=== PATIENT | female | born 1960 | race Caucasian/White ===

== ENCOUNTER 2023-08-22 10:24 | Inpatient (IN) ==
[2023-08-22] MEDS: SODIUM CHLORIDE 0.9% 1,000 ML IV ONE (11:15)
[2023-08-22 11:21] LABS: Basophils # (auto) 0.04 K/uL (0.00-0.20); Basophils % (auto) 0.3 %; Eosinophils # (auto) 0.03 K/uL (0.00-0.50); Eosinophils % (auto) 0.2 %; Hematocrit (blood only) 44.7 % (37.0-47.0); Hemoglobin 14.4 g/dl (12.0-16.0); Immature Granulocytes # (auto) 0.08 K/uL (0.01-0.20); Immature Granulocytes % (auto) 0.5 %; Lymphocytes # (auto) 2.85 K/uL (1.20-3.40); Lymphocytes % (auto) 18.5 %; Mean Corpuscular Hemoglobin 27.9 pg (25.0-34.0); Mean Corpuscular Hgb Conc 32.2 g/dL (32.0-36.0); Mean Corpuscular Volume 86.6 fL (80.0-100.0); Mean Platelet Volume 10.2 fL (9.4-12.4); Monocytes # (auto) 1.01 K/uL (0.11-0.59); Monocytes % (auto) 6.5 %; Neutrophils # (auto) 11.43 K/uL (1.40-6.50); Platelet Count 338 K/uL (130-400); RDW Coefficient of Variation 13.2 % (11.5-14.5); RDW Standard Deviation 41.8 fL (36.4-46.3); Red Blood Count 5.16 M/uL (4.20-5.40); White Blood Count 15.44 K/ul (4.8-10.8)
[2023-08-22 11:43] LABS: Albumin Globulin Ratio 1.6 (0.9-2); Albumin Level 4.6 gm/dl (3.4-5.0); BUN Creatinine Ratio 21.2 (10-20); Bilirubin,Total 0.3 mg/dl (0.2-1.0); Calcium 9.9 mg/dl (8.6-10.3); Creatinine Clr Calc Pharmacy 70.8 ml/min; Est GFR (African American) 85.7 ml/min; Globulin 2.9 gm/dl (2.5-4.0); Potassium 4.6 mmol/L (3.5-5.1); Total Protein 7.5 gm/dl (6.0-8.3)
--- NOTE | 2023-08-22 11:45 | Emergency Department Note ---
Impression & Plan Atrial fibrillation with rapid ventricular response, Atrial fibrillation, new onset, Dizziness ED Provider Note NAME: RENETTA BALDWIN AGE: 63 SEX: F ARRIVES VIA: Walk-In INFORMANT: Patient ED PROVIDER(S): Avila Tan MD CHIEF COMPLAINT: dizziness PLAN: Disposition: Admit MEDICAL DECISION MAKING: The patient is a 63-year-old woman, everyday smoker, diabetes who presents to the emergency department via walk-in accompanied her for evaluation of symptoms of denies weakness, lightheadedness intermittent sense of fast heart rate since yesterday in the setting of having nausea vomiting yesterday which she attributes to her Ozempic and occurs somewhat frequently. She denies room- spinning/vertigo. She denies any chest pain, headache, change in vision or hearing. The patient arrives to the emergency department with new onset atrial fibrillation in the 160s. She reports she has felt intermittent fast heart and palpitations for years going back to when she was a child. She does admit that she does not notice a fast heart rate as we are discussing her symptoms and her heart rate is in the 160s. On my evaluation the patient is in no distress, afebrile with heart in the 140s- 160s atrial fibrillation with vital signs otherwise stable. She appears clinically dry. EKG demonstrates atrial fibrillation with RVR without overt ST elevation or depression. WBC 15.4 K, nonspecific. H/H and platelets within normal limits. Chemistry without metabolic acidosis. BUN/creatinine, consistent with patient's clinically dry appearance. LFTs unremarkable. TSH within normal limits. COVID-19, influenza and RSV PCR's were negative. Patient was treated with IV fluid hydration with some improvement in rate to the 140s-150s after 1 L of normal saline. She was also given 5 mg of IV Lopressor x 3 with rate improving to the 100s-130s. Given persistent patient's atrial fibrillation with RVR which is new in onset patient agrees with plan for admission for further management. CHADS Vasc = 2. Case was discussed with Saloni Robertson PAC with Dr. Gallego, [facility] hospitalist, who will evaluate the patient for admission. Further management including additional rate control and decision for anticoagulation per admitting team. Triage Nursing notes reviewed and agree them. Prior/external medical records reviewed Vital Signs: reviewed Differential diagnosis: Benign positional vertigo, dehydration, hypovolemia, anemia, tumor, infection, hypoglycemia, electrolyte abnormalities, cardiac sources, intracerebral event, toxicologic, neurologic, as well as other pathologies. ER treatment provided: See below. Diagnostics interpreted by me: ECG: Atrial fibrillation with RVR, 162 bpm, left anterior fascicular block, no overt ST elevation or depression, QTc 456, QRS 80. Cardiac Monitoring: An order for continuous cardiac monitoring was placed and demonstrated atrial fibrillation with RVR, 162 bpm. Laboratory studies: See below Imaging studies: See below Consultation(s): Saloni Felix [facility] PAC with Dr. Gallego, [facility] hospitalist HPI: The patient is a 63-year-old woman, everyday smoker, diabetes who presents to the emergency department via walk-in accompanied her for evaluation of symptoms of denies weakness, lightheadedness intermittent sense of fast heart rate since yesterday in the setting of having nausea vomiting yesterday which she attributes to her Ozempic and occurs somewhat frequently. She denies room- spinning/vertigo. She denies any chest pain, headache, change in vision or hearing. The patient arrives to the emergency department with new onset atrial fibrillation in the 160s. She reports she has felt intermittent fast heart and palpitations for years going back to when she was a child. She does admit that she does not notice a fast heart rate as we are discussing her symptoms and her heart rate is in the 160s. ROS: See above HPI for pertinent positives & negatives. A total of 10 systems reviewed and were otherwise negative. VITALS:See Below PHYSICAL EXAMINATION: GENERAL: Awake, alert, well-appearing, in no distress HENT: Normocephalic, atraumatic. Oropharynx with dry mucous membranes and otherwise unremarkable. EYES: Normal conjunctiva. Sclera non-icteric. NECK: Supple. No nuchal rigidity. FROM. No JVD. RESPIRATORY: Clear to auscultation. CARDIAC: Tachycardic rate, irregular rhythm. Extremities warm and well perfused. Pulses equal. ABDOMEN: Soft, non-distended. No tenderness to palpation. No rebound or guarding. No masses. RECTAL: Deferred. MUSCULOSKELETAL: Chest examination reveals no tenderness. The back is symmetrical on inspection without obvious abnormality. There is no CVA tenderness to palpation. No joint edema. LOWER EXTREMITIES: Calves are equal size bilaterally and non-tender. No edema. No discoloration. NEURO: Normal sensorium. No sensory or motor deficits noted. SKIN: No rash or jaundice noted. ED COURSE: Critical Care: I have personally spent greater than 45 minutes of critical care time in the direct management of this patient. This includes bedside care, interpretation of diagnostic studies, and testing, discussion with consultants, patient, and family members, and other required patient management activities. This 45 minutes is in excess of all separately billable procedures. Avila Tan MD Past Med/Surg History Medical History Female stress incontinence Tobacco use Centrilobular emphysema T2DM (type 2 diabetes mellitus) HTN (hypertension) Surgical History Hx of cystoscopy Hx of bilateral cataract extraction Hx of tubal ligation Hx of hysterectomy Family History Mother Diabetes Social History Smoking Status: Current every day smoker Tobacco Type: Cigarettes Second Hand Exposure: No; Do You Dip or Chew Tobacco: No; Tobacco Cessation Education Requested by Patient: No Hx Alcohol Use: No Hx Substance Use: No Preferred Language: Moroccan Communication Ability: Effective Event Security Officer Required: No Beliefs That Will Affect Care: None Current Living Situation: Spouse Other Information That Helps Us Care for You: No Feels Safe at Home: Yes Assistive Devices: None Allergies Allergies Allergy/AdvReac Type Severity Reaction Status Date / Time No Known Allergies Allergy Unknown Verified 07/13/07 23:14 Home Meds Home Medications Medication Instructions Recorded Confirmed atorvastatin 20 mg tablet 20 mg PO DAILY 08/22/23 08/22/23 losartan 50 mg tablet 50 mg PO DAILY 08/22/23 08/22/23 metformin 500 mg tablet,extended 2,000 mg PO QPM 08/22/23 08/22/23 release 24 hr pantoprazole 40 mg tablet,delayed 40 mg PO DAILY 08/22/23 08/22/23 release semaglutide 1 mg/dose (4 mg/3 mL) 1 mg subcut MO 08/22/23 08/22/23 subcutaneous pen injector (Ozempic) tolterodine 4 mg capsule,extended 4 mg PO DAILY 08/22/23 08/22/23 release 24 hr zinc acetate 50 mg (zinc) capsule 50 mg PO DAILY 08/22/23 08/22/23 Results & Data (ED) Vital Signs Vital Signs - 24 hr 08/22/23 10:33 08/22/23 11:16 08/22/23 11:18 Temperature 36.8 C Temperature Source Temporal Artery Scan Pulse Rate 111 H 146 H Pulse Rate [Apical] 163 H Pulse Rate from SpO2 Sensor 127 H Respiratory Rate 18 17 20 Respiratory Depth Normal Blood Pressure 99/68 L Blood Pressure [Left Arm] 113/88 Blood Pressure Mean 78 Blood Pressure Mean [Left Arm] 96 Blood Pressure Position Sitting Pulse Oximetry 97 98 98 Oxygen Delivery Method Room Air Room Air Sepsis Recent Fever Within 48 Hours No Sepsis New/Unexplained Change in Mental Status No Sepsis Action Taken by Nursing No Action Required 08/22/23 11:20 08/22/23 11:20 08/22/23 11:30 Temperature Temperature Source Pulse Rate 159 H 163 H Pulse Rate [Apical] Pulse Rate from SpO2 Sensor 154 H Respiratory Rate 18 Respiratory Depth Blood Pressure 108/82 Blood Pressure [Left Arm] Blood Pressure Mean 89 Blood Pressure Mean [Left Arm] Blood Pressure Position Pulse Oximetry 97 Oxygen Delivery Method Sepsis Recent Fever Within 48 Hours Sepsis New/Unexplained Change in Mental Status Sepsis Action Taken by Nursing 08/22/23 11:45 08/22/23 11:45 08/22/23 11:50 Temperature Temperature Source Pulse Rate 156 H Pulse Rate [Apical] Pulse Rate from SpO2 Sensor 154 H Respiratory Rate 19 Respiratory Depth Blood Pressure 129/81 128/70 Blood Pressure [Left Arm] Blood Pressure Mean 96 88 Blood Pressure Mean [Left Arm] Blood Pressure Position Pulse Oximetry 98 Oxygen Delivery Method Sepsis Recent Fever Within 48 Hours Sepsis New/Unexplained Change in Mental Status Sepsis Action Taken by Nursing 08/22/23 11:50 08/22/23 11:55 08/22/23 11:55 Temperature Temperature Source Pulse Rate 143 H 134 H Pulse Rate [Apical] Pulse Rate from SpO2 Sensor 134 H 142 H Respiratory Rate 17 21 Respiratory Depth Blood Pressure 128/102 H Blood Pressure [Left Arm] Blood Pressure Mean 116 Blood Pressure Mean [Left Arm] Blood Pressure Position Pulse Oximetry 98 98 Oxygen Delivery Method Sepsis Recent Fever Within 48 Hours Sepsis New/Unexplained Change in Mental Status Sepsis Action Taken by Nursing 08/22/23 12:00 08/22/23 12:00 08/22/23 12:05 Temperature Temperature Source Pulse Rate 145 H 159 H Pulse Rate [Apical] Pulse Rate from SpO2 Sensor 147 H 143 H Respiratory Rate 19 15 Respiratory Depth Blood Pressure 119/88 Blood Pressure [Left Arm] Blood Pressure Mean 98 Blood Pressure Mean [Left Arm] Blood Pressure Position Pulse Oximetry 98 99 Oxygen Delivery Method Sepsis Recent Fever Within 48 Hours Sepsis New/Unexplained Change in Mental Status Sepsis Action Taken by Nursing 08/22/23 12:05 08/22/23 12:10 08/22/23 12:12 Temperature Temperature Source Pulse Rate 152 H 155 H Pulse Rate [Apical] Pulse Rate from SpO2 Sensor 141 H 131 H Respiratory Rate 19 22 Respiratory Depth Blood Pressure 90/67 L Blood Pressure [Left Arm] Blood Pressure Mean 78 Blood Pressure Mean [Left Arm] Blood Pressure Position Pulse Oximetry 98 99 Oxygen Delivery Method Sepsis Recent Fever Within 48 Hours Sepsis New/Unexplained Change in Mental Status Sepsis Action Taken by Nursing 08/22/23 12:12 08/22/23 12:20 08/22/23 12:20 Temperature Temperature Source Pulse Rate 157 H Pulse Rate [Apical] Pulse Rate from SpO2 Sensor Respiratory Rate Respiratory Depth Blood Pressure 131/82 121/93 121/93 Blood Pressure [Left Arm] Blood Pressure Mean 92 101 Blood Pressure Mean [Left Arm] Blood Pressure Position Pulse Oximetry Oxygen Delivery Method Sepsis Recent Fever Within 48 Hours Sepsis New/Unexplained Change in Mental Status Sepsis Action Taken by Nursing 08/22/23 12:20 08/22/23 12:25 08/22/23 12:25 Temperature Temperature Source Pulse Rate 163 H 141 H Pulse Rate [Apical] Pulse Rate from SpO2 Sensor Respiratory Rate 31 H 18 Respiratory Depth Blood Pressure 98/74 L Blood Pressure [Left Arm] Blood Pressure Mean 89 Blood Pressure Mean [Left Arm] Blood Pressure Position Pulse Oximetry Oxygen Delivery Method Sepsis Recent Fever Within 48 Hours Sepsis New/Unexplained Change in Mental Status Sepsis Action Taken by Nursing 08/22/23 12:30 08/22/23 12:31 08/22/23 12:31 Temperature Temperature Source Pulse Rate 138 H 127 H Pulse Rate [Apical] Pulse Rate from SpO2 Sensor 116 H 109 H Respiratory Rate 18 16 Respiratory Depth Blood Pressure 99/70 L Blood Pressure [Left Arm] Blood Pressure Mean 81 Blood Pressure Mean [Left Arm] Blood Pressure Position Pulse Oximetry 84 L 91 Oxygen Delivery Method Sepsis Recent Fever Within 48 Hours Sepsis New/Unexplained Change in Mental Status Sepsis Action Taken by Nursing 08/22/23 12:37 08/22/23 12:37 08/22/23 12:40 Temperature Temperature Source Pulse Rate 130 H 147 H Pulse Rate [Apical] Pulse Rate from SpO2 Sensor 118 H 121 H Respiratory Rate 17 15 Respiratory Depth Blood Pressure 100/65 Blood Pressure [Left Arm] Blood Pressure Mean 71 Blood Pressure Mean [Left Arm] Blood Pressure Position Pulse Oximetry 98 98 Oxygen Delivery Method Sepsis Recent Fever Within 48 Hours Sepsis New/Unexplained Change in Mental Status Sepsis Action Taken by Nursing 08/22/23 12:41 08/22/23 12:41 08/22/23 12:42 Temperature Temperature Source Pulse Rate 131 H 145 H Pulse Rate [Apical] Pulse Rate from SpO2 Sensor 126 H 120 H Respiratory Rate 18 19 Respiratory Depth Blood Pressure 76/41 L Blood Pressure [Left Arm] Blood Pressure Mean 44 Blood Pressure Mean [Left Arm] Blood Pressure Position Pulse Oximetry 97 98 Oxygen Delivery Method Sepsis Recent Fever Within 48 Hours Sepsis New/Unexplained Change in Mental Status Sepsis Action Taken by Nursing 08/22/23 12:42 08/22/23 12:46 08/22/23 12:46 Temperature Temperature Source Pulse Rate 145 H Pulse Rate [Apical] Pulse Rate from SpO2 Sensor Respiratory Rate Respiratory Depth Blood Pressure 102/72 110/71 110/71 Blood Pressure [Left Arm] Blood Pressure Mean 75 81 Blood Pressure Mean [Left Arm] Blood Pressure Position Pulse Oximetry Oxygen Delivery Method Sepsis Recent Fever Within 48 Hours Sepsis New/Unexplained Change in Mental Status Sepsis Action Taken by Nursing 08/22/23 12:46 08/22/23 12:50 08/22/23 12:51 Temperature Temperature Source Pulse Rate 127 H 138 H Pulse Rate [Apical] Pulse Rate from SpO2 Sensor 129 H 108 H Respiratory Rate 19 20 Respiratory Depth Blood Pressure 98/67 L Blood Pressure [Left Arm] Blood Pressure Mean 76 Blood Pressure Mean [Left Arm] Blood Pressure Position Pulse Oximetry 97 97 Oxygen Delivery Method Sepsis Recent Fever Within 48 Hours Sepsis New/Unexplained Change in Mental Status Sepsis Action Taken by Nursing 08/22/23 12:51 08/22/23 13:00 08/22/23 13:00 Temperature Temperature Source Pulse Rate 131 H 120 H Pulse Rate [Apical] Pulse Rate from SpO2 Sensor 125 H 90 Respiratory Rate 17 14 Respiratory Depth Blood Pressure 103/74 Blood Pressure [Left Arm] Blood Pressure Mean 76 Blood Pressure Mean [Left Arm] Blood Pressure Position Pulse Oximetry 96 97 Oxygen Delivery Method Sepsis Recent Fever Within 48 Hours Sepsis New/Unexplained Change in Mental Status Sepsis Action Taken by Nursing 08/22/23 13:10 08/22/23 13:11 08/22/23 13:11 Temperature Temperature Source Pulse Rate 139 H 126 H Pulse Rate [Apical] Pulse Rate from SpO2 Sensor 117 H 128 H Respiratory Rate 17 15 Respiratory Depth Blood Pressure 106/72 Blood Pressure [Left Arm] Blood Pressure Mean 91 Blood Pressure Mean [Left Arm] Blood Pressure Position Pulse Oximetry 96 96 Oxygen Delivery Method Sepsis Recent Fever Within 48 Hours Sepsis New/Unexplained Change in Mental Status Sepsis Action Taken by Nursing 08/22/23 13:20 08/22/23 13:21 08/22/23 13:21 Temperature Temperature Source Pulse Rate 144 H 128 H Pulse Rate [Apical] Pulse Rate from SpO2 Sensor 147 H 120 H Respiratory Rate 17 15 Respiratory Depth Blood Pressure 109/88 Blood Pressure [Left Arm] Blood Pressure Mean 97 Blood Pressure Mean [Left Arm] Blood Pressure Position Pulse Oximetry 97 96 Oxygen Delivery Method Sepsis Recent Fever Within 48 Hours Sepsis New/Unexplained Change in Mental Status Sepsis Action Taken by Nursing 08/22/23 13:30 08/22/23 13:30 08/22/23 13:40 Temperature Temperature Source Pulse Rate 130 H Pulse Rate [Apical] Pulse Rate from SpO2 Sensor 113 H Respiratory Rate 16 Respiratory Depth Blood Pressure 96/63 L 109/59 L Blood Pressure [Left Arm] Blood Pressure Mean 67 65 Blood Pressure Mean [Left Arm] Blood Pressure Position Pulse Oximetry 96 Oxygen Delivery Method Sepsis Recent Fever Within 48 Hours Sepsis New/Unexplained Change in Mental Status Sepsis Action Taken by Nursing 08/22/23 13:40 08/22/23 13:50 08/22/23 13:50 Temperature Temperature Source Pulse Rate 116 H 129 H Pulse Rate [Apical] Pulse Rate from SpO2 Sensor 128 H 103 H Respiratory Rate 23 17 Respiratory Depth Blood Pressure 109/51 L Blood Pressure [Left Arm] Blood Pressure Mean 77 Blood Pressure Mean [Left Arm] Blood Pressure Position Pulse Oximetry 96 98 Oxygen Delivery Method Sepsis Recent Fever Within 48 Hours Sepsis New/Unexplained Change in Mental Status Sepsis Action Taken by Nursing 08/22/23 13:53 08/22/23 14:00 08/22/23 14:00 Temperature Temperature Source Pulse Rate 142 H 117 H Pulse Rate [Apical] Pulse Rate from SpO2 Sensor 112 H Respiratory Rate 15 Respiratory Depth Blood Pressure 109/51 L 104/78 Blood Pressure [Left Arm] Blood Pressure Mean 81 Blood Pressure Mean [Left Arm] Blood Pressure Position Pulse Oximetry 97 Oxygen Delivery Method Sepsis Recent Fever Within 48 Hours Sepsis New/Unexplained Change in Mental Status Sepsis Action Taken by Nursing 08/22/23 14:10 08/22/23 14:10 08/22/23 14:20 Temperature Temperature Source Pulse Rate 120 H 139 H Pulse Rate [Apical] Pulse Rate from SpO2 Sensor 120 H 100 H Respiratory Rate 15 24 Respiratory Depth Blood Pressure 117/80 Blood Pressure [Left Arm] Blood Pressure Mean 92 Blood Pressure Mean [Left Arm] Blood Pressure Position Pulse Oximetry 97 98 Oxygen Delivery Method Sepsis Recent Fever Within 48 Hours Sepsis New/Unexplained Change in Mental Status Sepsis Action Taken by Nursing 08/22/23 14:21 08/22/23 14:21 08/22/23 14:21 Temperature Temperature Source Pulse Rate 132 H Pulse Rate [Apical] Pulse Rate from SpO2 Sensor 109 H Respiratory Rate 16 Respiratory Depth Blood Pressure 96/68 L 96/68 L Blood Pressure [Left Arm] Blood Pressure Mean 71 71 Blood Pressure Mean [Left Arm] Blood Pressure Position Pulse Oximetry 98 Oxygen Delivery Method Sepsis Recent Fever Within 48 Hours Sepsis New/Unexplained Change in Mental Status Sepsis Action Taken by Nursing 08/22/23 14:30 08/22/23 14:30 08/22/23 14:40 Temperature Temperature Source Pulse Rate 124 H Pulse Rate [Apical] Pulse Rate from SpO2 Sensor 105 H Respiratory Rate 15 Respiratory Depth Blood Pressure 113/62 118/65 Blood Pressure [Left Arm] Blood Pressure Mean 72 88 Blood Pressure Mean [Left Arm] Blood Pressure Position Pulse Oximetry 97 Oxygen Delivery Method Sepsis Recent Fever Within 48 Hours Sepsis New/Unexplained Change in Mental Status Sepsis Action Taken by Nursing 08/22/23 14:40 08/22/23 14:50 08/22/23 14:51 Temperature Temperature Source Pulse Rate 131 H 129 H Pulse Rate [Apical] Pulse Rate from SpO2 Sensor 118 H 127 H Respiratory Rate 16 21 Respiratory Depth Blood Pressure 82/55 L Blood Pressure [Left Arm] Blood Pressure Mean 58 Blood Pressure Mean [Left Arm] Blood Pressure Position Pulse Oximetry 97 98 Oxygen Delivery Method Sepsis Recent Fever Within 48 Hours Sepsis New/Unexplained Change in Mental Status Sepsis Action Taken by Nursing 08/22/23 14:51 08/22/23 15:00 08/22/23 15:00 Temperature Temperature Source Pulse Rate 136 H 135 H Pulse Rate [Apical] Pulse Rate from SpO2 Sensor 139 H 120 H Respiratory Rate 16 17 Respiratory Depth Blood Pressure 114/83 Blood Pressure [Left Arm] Blood Pressure Mean 87 Blood Pressure Mean [Left Arm] Blood Pressure Position Pulse Oximetry 98 96 Oxygen Delivery Method Sepsis Recent Fever Within 48 Hours Sepsis New/Unexplained Change in Mental Status Sepsis Action Taken by Nursing 08/22/23 15:10 08/22/23 15:11 08/22/23 15:11 Temperature Temperature Source Pulse Rate 127 H 152 H Pulse Rate [Apical] Pulse Rate from SpO2 Sensor 90 126 H Respiratory Rate 16 19 Respiratory Depth Blood Pressure 116/70 Blood Pressure [Left Arm] Blood Pressure Mean 88 Blood Pressure Mean [Left Arm] Blood Pressure Position Pulse Oximetry 97 98 Oxygen Delivery Method Sepsis Recent Fever Within 48 Hours Sepsis New/Unexplained Change in Mental Status Sepsis Action Taken by Nursing Laboratory Data Attestation: I reviewed the patient's lab results. 08/22/23 11:00 08/22/23 11:00 Lab Results 08/22/23 08/22/23 Range/Units 11:00 13:41 WBC 15.44 H (4.8-10.8) K/ul RBC 5.16 (4.20-5.40) M/uL Hgb 14.4 (12.0-16.0) g/dl Hct 44.7 (37.0-47.0) % MCV 86.6 (80.0-100.0) fL MCH 27.9 (25.0-34.0) pg MCHC 32.2 (32.0-36.0) g/dL RDW Std Deviation 41.8 (36.4-46.3) fL RDW Coeff of Valente 13.2 (11.5-14.5) % Plt Count 338 (130-400) K/uL MPV 10.2 (9.4-12.4) fL Immature Gran % (Auto) 0.5 % Neut % (Auto) 74.0 % Lymph % (Auto) 18.5 % Mcintosh % (Auto) 6.5 % Eos % (Auto) 0.2 % Baso % (Auto) 0.3 % Neut # (Auto) 11.43 H (1.40-6.50) K/uL Lymph # (Auto) 2.85 (1.20-3.40) K/uL Mcintosh # (Auto) 1.01 H (0.11-0.59) K/uL Eos # (Auto) 0.03 (0.00-0.50) K/uL Baso # (Auto) 0.04 (0.00-0.20) K/uL Immature Gran # (Auto) 0.08 (0.01-0.20) K/uL PT 9.8 (9.0-12.0) Seconds INR 0.9 (0.9-1.1) Heparin Anti-Xa, Unfract < 0.10 L (0.3-0.7) IU/ml Sodium 134 L (136-145) mmol/L Potassium 4.6 (3.5-5.1) mmol/L Chloride 101 (98-107) mmol/L Carbon Dioxide 24 (21-32) mmol/L Anion Gap 9 (3-11) BUN 18 (6-23) mg/dl Creatinine 0.85 (0.6-1.2) mg/dl Est Cr Clr Drug Dosing 70.8 ml/min Est GFR ( Amer) 85.7 ml/min Est GFR (Non-Af Amer) 74.0 ml/min BUN/Creatinine Ratio 21.2 H (10-20) Glucose 219 H (70-99(Fasting)) mg/dl Calcium 9.9 (8.6-10.3) mg/dl Phosphorus 3.0 (2.5-4.9) mg/dl Magnesium 1.8 (1.7-2.4) mg/dl Total Bilirubin 0.3 (0.2-1.0) mg/dl AST 13 (13-39) U/L ALT 16 (7-52) U/L Alkaline Phosphatase 101 (34-104) U/L Troponin I High Sens Cancelled 9.9 Total Protein 7.5 (6.0-8.3) gm/dl Albumin 4.6 (3.4-5.0) gm/dl Globulin 2.9 (2.5-4.0) gm/dl Albumin/Globulin Ratio 1.6 (0.9-2) TSH 0.475 (0.300-4.500) uIu/ml SARS-CoV-2 (PCR) NEGATIVE (Negative) Influenza Type A (PCR) Negative (Neg) Influenza Type B (PCR) Negative (Neg) RSV (RT-PCR) Negative (Neg) Administered Medications Heparin Sodium/Dextrose (Heparin Sodium/Dextrose) 25,000 units in 500 mls @ 23 mls/hr IV .[id number] [facility]; Protocol Stop: 09/21/23 16:29 Last Titration: 08/22/23 19:04 Dose: 1,150 units/hr, 23 mls/hr Documented By: MASSIMO Co-signed By: ALLISON Admin: 08/22/23 17:50 Dose: 1,150 units/hr, 23 mls/hr Documented By: MASSIMO Co-signed By: AIDA Sodium Chloride (Nss) 1,000 mls @ 100 mls/hr IV .Q10H [facility] Stop: 08/23/23 11:44 Last Admin: 08/22/23 16:10 Dose: 100 mls/hr Documented By: SUZY Insulin Aspart (Insulin Aspart Per Unit Charge) 0 units SC ACHS [facility] Stop: 09/21/23 16:56 Last Admin: 08/22/23 20:40 Dose: 1 units Documented By: ALLISON Co-signed By: PARISA Admin: 08/22/23 18:10 Dose: Not Given Documented By: MASSIMO Insulin Glargine (Lantus Per Unit Charge) 0 - 8 units SQ BID [facility] Stop: 09/21/23 20:59 Last Admin: 08/22/23 20:41 Dose: 8 units Documented By: ALLISON Co-signed By: PARISA Metoprolol Tartrate (Metoprolol Tartrate 25 Mg Tab) 12.5 mg PO Q6H [facility] Stop: 09/21/23 21:59 Last Admin: 08/22/23 20:39 Dose: 12.5 mg Documented By: ALLISON Metoprolol Tartrate (Metoprolol Tartrate 1 Mg/Ml Vial) 5 mg IV Q6 PRN PRN Reason: HR >120 Stop: 09/21/23 16:56 Last Admin: 08/22/23 19:51 Dose: 5 mg Documented By: ALLISON Discontinued Medications Sodium Chloride (Nss) 1,000 mls @ 999 mls/hr IV .Q1H1M ONE Stop: 08/22/23 12:13 Last Infusion: 08/22/23 12:20 Dose: Infused Documented By: Admin: 08/22/23 11:15 Dose: 999 mls/hr Documented By: CARYN Sodium Chloride (Nss) 500 mls @ 999 mls/hr IV .Q31M ONE Stop: 08/22/23 13:45 Last Admin: 08/22/23 13:37 Dose: 999 mls/hr Documented By: CARYN Magnesium Sulfate/Dextrose (Magnesium Sulfate / D5w) 1 gm in 100 mls @ 100 mls/hr IV NOW STA Stop: 08/22/23 16:19 Last Infusion: 08/22/23 17:30 Dose: Infused Documented By: Admin: 08/22/23 16:10 Dose: 100 mls/hr Documented By: SUZY Metoprolol Tartrate (Metoprolol Tartrate 1 Mg/Ml Vial) 5 mg IV NOW STA Stop: 08/22/23 12:14 Last Admin: 08/22/23 12:20 Dose: 5 mg Documented By: Metoprolol Tartrate (Metoprolol Tartrate 1 Mg/Ml Vial) 5 mg IV NOW STA Stop: 08/22/23 12:40 Last Admin: 08/22/23 12:46 Dose: 5 mg Documented By: LYLE Metoprolol Tartrate (Metoprolol Tartrate 1 Mg/Ml Vial) 5 mg IV NOW STA Stop: 08/22/23 13:16 Last Admin: 08/22/23 13:53 Dose: 5 mg Documented By: CARYN Metoprolol Tartrate (Metoprolol Tartrate 25 Mg Tab) 12.5 mg PO NOW ONE Stop: 08/22/23 15:46 Last Admin: 08/22/23 16:07 Dose: 12.5 mg Documented By: SUZY Discharge Plan Visit Data Chief Complaint: Illness Stated Complaint: HIGH BP AND BLOOD SUGAR ED Provider: Avila Tan Discharge Problem: Atrial fibrillation with rapid ventricular response, Atrial fibrillation, new onset, Dizziness Patient Disposition: Admitted As Inpatient Discharge Instructions Interventions: ED Discharge Assessment Last Done: 08/22/23 16:29
[2023-08-22 11:52] LABS: INR 0.9 (0.9-1.1); Prothrombin Time 9.8 Seconds (9.0-12.0)
[2023-08-22 11:56] LABS: Influenza A virus by PCR Negative (Neg); Influenza B virus by PCR Negative (Neg); RSV by PCR Negative (Neg); SARS CoV2 RNA(COVID-19) Ceph NEGATIVE (Negative)
[2023-08-22] MEDS: METOPROLOL TARTRATE 1 MG/ML VIAL IV STA ×3 (12:20→13:53)
[2023-08-22 12:56] LABS: Magnesium 1.8 mg/dl (1.7-2.4)
[2023-08-22 13:16] LABS: Thyroid Stimulating Hormone 0.475 uIu/ml (0.300-4.500)
[2023-08-22] MEDS: SODIUM CHLORIDE 0.9% 500 ML IV ONE (13:37)
[2023-08-22] MEDS ORDERED: METOPROLOL TARTRATE 50 MG TAB PO STA (14:42)
[2023-08-22] MEDS ORDERED: Heparin IV Adult Wt-Based Standard *NO* INITIAL Bolus Protocol IV STA (15:37)
[2023-08-22] MEDS ORDERED: METOPROLOL TARTRATE 25 MG TAB PO SCH (15:45)
--- NOTE | 2023-08-22 15:59 | History & Physical Report ---
Date of Service August 22, 2023 Assessment & Plan (1) Atrial fibrillation with rapid ventricular response: (2) T2DM (type 2 diabetes mellitus): (3) HTN (hypertension): (4) Centrilobular emphysema: Plan This is a 63-year-old female who has a significant past medical history of HTN, T2DM, COPD and tobacco use disorder who presents to ED secondary to dizziness x 1.5 days. New onset atrial fibrillation with RVR admit to PCU [id number] (F, HTN, T2DM) Initiate IV heparin consult cardiology Dr. Reyes Metoprolol tartrate 12.5mg q6h, titrate as needed IV lopressor 5mg q6h prn HR > 120 obtain echocardiogram will give 1g IV magnesium, potassium acceptable TSH wnl T2DM controlled w/o complication hold metformin, ozempic (last dose 08/20) lantus/novolog per protocol HTN pt bp has been on high side as outpatient losartan recently increased from 25mg to 50mg daily hold losartan for now in setting of lower blood pressure COPD Tobacco abuse no acute exac encourage cessation she declines nicotine patch DVT ppx: IV heparin FULL CODE PCP: Dr. Vera Dispo: admit to PCU Pt was seen and examined in collaboration with Dr. Gallego, please see addendum A total of 75 minutes was spent coordinating, documenting, and providing care for this patient excluding time spent in the performance of separately billed services. This included personally viewing all current laboratories and imaging studies, medication reconciliation, outpatient chart review, and discussion with specialists. History of Present Illness Chief Complaint: Dizziness x 1.5 days. Primary Care Provider: Rolf Vera MD This is a 63-year-old female who has a significant past medical history of HTN, T2DM, COPD and tobacco use disorder who presents to ED secondary to dizziness x 1.5 days. Her is at bedside who also helps elicit history. Her PCP is Dr. Vera. She states yesterday morning when she woke up that she felt unwell, generally weak, lethargic, unable to function and episodes of feeling like she was going, "passed out." The symptoms persisted throughout the day and she states they were worse when she was at work. They required her to leave work early and when she went home she was, "not functional. Her symptoms progressed today which brought her to the ED. during the symptoms she denies feeling elvia palpitations, chest pain, shortness breath at rest or with exertion. She denies elvia syncope. She states that she has had similar symptoms on and off, "her whole life." She does have known history of diabetes and has been on Ozempic of late. She states that she typically gets nauseated after taking Ozempic. She takes this on Sunday. She did have a few episodes of vomiting due to Ozempic as well. She states that 2 to 3 weeks ago she had a viral respiratory illness. She otherwise has been well. She denies any fever, chills, sweats, abdominal pain, dysuria, increased urgency or frequency with urination, melena or hematochezia. She denies ever having history of atrial fibrillation in the past. She states her father when she was young, but she knows he underwent bypass surgery. She otherwise denies any family history of atrial arrhythmias. She denies any prior history of thyroid disorder. She is a chronic tobacco abuser. She has not smoked since the age of 17. She denies any significant alcohol use. In ED patient was found to be in atrial fibrillation with RVR. She received 5 mg of IV Lopressor x 3 with intermittent improvement of heart rates. She denies any prior history of any severe bleeding episodes, epistaxis, GI bleeding or brain bleeding. She denies any prior history of trauma. Allergies Allergy/AdvReac Type Severity Reaction Status Date / Time No Known Allergies Allergy Unknown Verified 07/13/07 23:14 Home Medications Medication Instructions Recorded Confirmed Type atorvastatin 20 mg tablet 20 mg PO DAILY 08/22/23 08/22/23 History losartan 50 mg tablet 50 mg PO DAILY 08/22/23 08/22/23 History metformin 500 mg tablet,extended 2,000 mg PO QPM 08/22/23 08/22/23 History release 24 hr pantoprazole 40 mg tablet,delayed 40 mg PO DAILY 08/22/23 08/22/23 History release semaglutide 1 mg/dose (4 mg/3 mL) 1 mg subcut MO 08/22/23 08/22/23 History subcutaneous pen injector (Ozempic) tolterodine 4 mg capsule,extended 4 mg PO DAILY 08/22/23 08/22/23 History release 24 hr zinc acetate 50 mg (zinc) capsule 50 mg PO DAILY 08/22/23 08/22/23 History Past Med/Surg History Medical History Female stress incontinence Tobacco use Centrilobular emphysema T2DM (type 2 diabetes mellitus) HTN (hypertension) Surgical History Hx of cystoscopy Hx of bilateral cataract extraction Hx of tubal ligation Hx of hysterectomy Family History Mother Diabetes Social History Smoking Status: Current every day smoker Tobacco Type: Cigarettes Second Hand Exposure: No; Do You Dip or Chew Tobacco: No; Tobacco Cessation Education Requested by Patient: No Hx Alcohol Use: No Hx Substance Use: No Preferred Language: Guyanese Communication Ability: Effective News Operations Manager Required: No Beliefs That Will Affect Care: None Current Living Situation: Spouse Other Information That Helps Us Care for You: No Feels Safe at Home: Yes Assistive Devices: None Review of Systems Review of Systems: All systems reviewed & are unremarkable except as noted in HPI & below Physical Exam Physical Exam: Constitutional: WD/WN, vitals as above, NAD, sitting up in bed, pleasant, conversing easily Head: Normocephalic, Atraumatic Eyes: PERRL, conjunctivae normal, anicteric sclerae ENMT: external ear and nose normal, oropharynx normal Neck: trachea midline, no thyromegaly normal visual inspection Respiratory: normal respiratory effort, lungs clear to auscultation, no wheeze, rales, rhonchi. Normal insp/exp effort, no accessory muscle use Cardiovascular: IRR/IRR, no murmur, no edema Vessels: no JVD or carotid bruit Chest: normal inspection of chest Abdomen: normal bowel sounds, soft, nontender, no hepatosplenomegaly Musculoskeletal: no cyanosis or clubbing, extremities motor strength 5/5 Skin: no rashes, warm and dry normal turgor Neurologic: PERRL, EOMI, accommodation nl, no face palsy, no dysarthria CN's II-XI intact bilaterally and moves all extremities Psychiatric: A+Ox3, euthymic affect Lymphatic: no cervical or axillary lymphadenopathy : deferred Results & Data Results & Data Vital Signs (Past 12 Hours) Vital Signs Temp Pulse Pulse Resp BP BP Pulse Ox 08/22/23 14:10 117/80 08/22/23 14:10 120 H 15 97 08/22/23 14:00 104/78 08/22/23 14:00 117 H 15 97 08/22/23 13:53 142 H 109/51 L 08/22/23 13:50 109/51 L 08/22/23 13:50 129 H 17 98 08/22/23 13:40 116 H 23 96 08/22/23 13:40 109/59 L 08/22/23 13:30 130 H 16 96 08/22/23 13:30 96/63 L 08/22/23 13:21 128 H 15 96 08/22/23 13:21 109/88 08/22/23 13:20 144 H 17 97 08/22/23 13:11 126 H 15 96 08/22/23 13:11 106/72 08/22/23 13:10 139 H 17 96 08/22/23 13:00 120 H 14 97 08/22/23 13:00 103/74 08/22/23 12:51 131 H 17 96 08/22/23 12:51 98/67 L 08/22/23 12:50 138 H 20 97 08/22/23 12:46 127 H 19 97 08/22/23 12:46 110/71 08/22/23 12:46 145 H 110/71 08/22/23 12:42 102/72 08/22/23 12:42 145 H 19 98 08/22/23 12:41 131 H 18 97 08/22/23 12:41 76/41 L 08/22/23 12:40 147 H 15 98 08/22/23 12:37 130 H 17 98 08/22/23 12:37 100/65 08/22/23 12:31 127 H 16 91 08/22/23 12:31 99/70 L 08/22/23 12:30 138 H 18 84 L 08/22/23 12:25 141 H 18 08/22/23 12:25 98/74 L 08/22/23 12:20 163 H 31 H 08/22/23 12:20 121/93 08/22/23 12:20 157 H 121/93 02/14/24 12:12 131/82 08/22/23 12:12 155 H 22 99 08/22/23 12:10 152 H 19 98 08/22/23 12:05 90/67 L 08/22/23 12:05 159 H 15 99 08/22/23 12:00 145 H 19 98 08/22/23 12:00 119/88 08/22/23 11:55 128/102 H 08/22/23 11:55 134 H 21 98 08/22/23 11:50 143 H 17 98 08/22/23 11:50 128/70 08/22/23 11:45 156 H 19 98 08/22/23 11:45 129/81 08/22/23 11:30 163 H 08/22/23 11:20 108/82 08/22/23 11:20 159 H 18 97 08/22/23 11:18 146 H 20 98 08/22/23 11:16 163 H 17 113/88 98 08/22/23 10:33 36.8 C 111 H 18 99/68 L 97 O2 Del Method 08/22/23 14:10 08/22/23 14:10 08/22/23 14:00 08/22/23 14:00 08/22/23 13:53 08/22/23 13:50 08/22/23 13:50 08/22/23 13:40 08/22/23 13:40 08/22/23 13:30 08/22/23 13:30 08/22/23 13:21 08/22/23 13:21 08/22/23 13:20 08/22/23 13:11 08/22/23 13:11 08/22/23 13:10 08/22/23 13:00 08/22/23 13:00 08/22/23 12:51 08/22/23 12:51 08/22/23 12:50 08/22/23 12:46 08/22/23 12:46 08/22/23 12:46 08/22/23 12:42 08/22/23 12:42 08/22/23 12:41 08/22/23 12:41 08/22/23 12:40 08/22/23 12:37 08/22/23 12:37 08/22/23 12:31 08/22/23 12:31 08/22/23 12:30 08/22/23 12:25 08/22/23 12:25 08/22/23 12:20 08/22/23 12:20 08/22/23 12:20 08/22/23 12:12 08/22/23 12:12 08/22/23 12:10 08/22/23 12:05 08/22/23 12:05 08/22/23 12:00 08/22/23 12:00 08/22/23 11:55 08/22/23 11:55 08/22/23 11:50 08/22/23 11:50 08/22/23 11:45 08/22/23 11:45 08/22/23 11:30 08/22/23 11:20 08/22/23 11:20 08/22/23 11:18 08/22/23 11:16 Room Air 08/22/23 10:33 Room Air Medications Administered Medication List Discontinued Medications Sodium Chloride (Nss) 1,000 mls @ 999 mls/hr IV .Q1H1M ONE Stop: 08/22/23 12:13 Last Infusion: 08/22/23 12:20 Dose: Infused Documented By: Admin: 08/22/23 11:15 Dose: 999 mls/hr Documented By: ML Sodium Chloride (Nss) 500 mls @ 999 mls/hr IV .Q31M ONE Stop: 08/22/23 13:45 Last Admin: 08/22/23 13:37 Dose: 999 mls/hr Documented By: ML Metoprolol Tartrate (Metoprolol Tartrate 1 Mg/Ml Vial) 5 mg IV NOW STA Stop: 08/22/23 12:14 Last Admin: 08/22/23 12:20 Dose: 5 mg Documented By: AB Metoprolol Tartrate (Metoprolol Tartrate 1 Mg/Ml Vial) 5 mg IV NOW STA Stop: 08/22/23 12:40 Last Admin: 08/22/23 12:46 Dose: 5 mg Documented By: LYLE Metoprolol Tartrate (Metoprolol Tartrate 1 Mg/Ml Vial) 5 mg IV NOW STA Stop: 08/22/23 13:16 Last Admin: 08/22/23 13:53 Dose: 5 mg Documented By: ML ECG Additional Comments: I have independently reviewed and interpreted patient's admitting EKG which revealed: 129 bpm, afib rvr Code Status & VTE Plan Code Status FULL CODE Supervising Physician Co-Signing Physician Notes Patient is a 63-year-old female with history of hypertension, diabetes and other medical problems presents with history of dizziness since 2 days duration. Patient admits to have generalized weakness, was lethargic and reports dizziness. She denies any chest pain, palpitations, dyspnea. She denies any loss of consciousness. Reports similar symptoms intermittently for many years and was not previously diagnosed to have any heart rhythm issues. She was found to be in A-fib RVR while in ED. Please review HPI for complete details of presentation. I personally reviewed blood work. Normal TSH levels. Noted leukocytosis, no obvious source of infection. Glucose elevated at 219. Chest x-ray currently pending. On exam patient is moderately built and nourished, no apparent distress, normocephalic atraumatic, EOMI, normal breath sounds, clear to auscultation, irregularly irregular, tachycardia, no murmur, abdomen soft, nontender, normal bowel sounds, alert, awake, oriented, grossly no focal deficits, no pedal edema. Patient is admitted for management of A-fib RVR. Started on metoprolol 12.5 mg every 6 hours. IV Lopressor as needed. Given relatively low BP, will give IV fluids. Obtain resting echo. Monitor and replace electrolytes as needed. Magnesium replenished. Cardiology consulted. I personally interviewed and examined at bedside. Patient's care is coordinated with Saloni Felix PA-C. I have reviewed the advanced practitioner's documentation, and I agree with, and take responsibility for that plan of care. Please refer to the documentation above for details of patient's presentation and for discussion of other issues. I spent a total [id number] coordinating, documenting, and providing care for this patient excluding time spent in the performance of separately billed services.
[2023-08-22] MEDS: METOPROLOL TARTRATE 25 MG TAB PO ONE (16:07)
[2023-08-22] MEDS: MAGNESIUM SULFATE / D5W 1 GM/100 ML BAG IV STA (16:10)
[2023-08-22] MEDS: SODIUM CHLORIDE 0.9% 1,000 ML IV SCH (16:10)
[2023-08-22 16:16] LABS: ANTI-Xa, UFH(UnfractionatedHep < 0.10 IU/ml (0.3-0.7)
[2023-08-22] MEDS ORDERED: GLUCAGON FOR INJ 1 MG VIAL SQ PRN (16:57)
[2023-08-22] MEDS ORDERED: MAGNESIUM HYDROXIDE SUSP 30 ML UDC PO PRN (16:57)
[2023-08-22] MEDS ORDERED: GLUCOSE 40% GEL 15 GM TUBE PO PRN (16:57)
[2023-08-22] MEDS ORDERED: GLUCOSE 10 TAB/TUBE PO PRN (16:57)
[2023-08-22] MEDS ORDERED: ONDANSETRON INJ 2 MG/ML 2 ML VIAL IV PRN (16:57)
[2023-08-22] MEDS ORDERED: DEXTROSE 50% 50 ML SYRINGE IV PRN (16:57)
[2023-08-22] MEDS ORDERED: POLYETHYLENE (MIRALAX) 17 GM PACK PO PRN (16:57)
[2023-08-22] MEDS ORDERED: CARBOHYDRATES FOR HYPOGLYCEMIA PO PRN (16:57)
[2023-08-22] MEDS ORDERED: ALUMINUM/MAGNESIUM SUSP 30 ML UDC PO PRN (16:57)
[2023-08-22] MEDS: HEPARIN SODIUM/DEXTROSE 25,000 UNITS/500 ML BAG IV SCH (17:50)
[2023-08-22] MEDS: INSULIN ASPART PER UNIT CHARGE SC SCH (18:10)
[2023-08-22] MEDS: METOPROLOL TARTRATE 1 MG/ML VIAL IV PRN (19:51)
[2023-08-22] MEDS: METOPROLOL TARTRATE 25 MG TAB PO SCH (20:39)
[2023-08-22] MEDS: LANTUS PER UNIT CHARGE SQ SCH (20:41)
[2023-08-23] MEDS: LORazepam 0.5 MG TAB PO STA (00:43)
[2023-08-23 01:19] LABS: ANTI-Xa, UFH(UnfractionatedHep 0.35 IU/ml (0.3-0.7)
[2023-08-23 03:32] LABS: Appearance Urine Clear (Clear); Bacteria Urine Automated 2+ (Negative); Bilirubin Urine Negative (Negative); Blood Urine Negative (Negative); Cast Urine Automated 0 /lpf (0-5); Color Urine Yellow; Epithelial Cell Urine Auto 0-5 /lpf (0-5); Glucose Urine UA Negative (Negative); Ketones Urine Negative (Negative); Leukocyte Esterase Urine Trace (Negative); Nitrite Urine Negative (Negative); Protein Urine Negative (Negative); RBC Urine Automated 0-4 /hpf (0-4); Specific Gravity Urine 1.006 (1.000-1.030); Urobilinogen Urine Negative (Negative); pH Urine 5.5 (4.5-7.5)
--- NOTE | 2023-08-23 05:59 | Electrocardiogram Report ---
Test Reason : Blood Pressure : / mmHG Vent. Rate : 162 BPM Atrial Rate : 000 BPM P-R Int : 000 ms QRS Dur : 080 ms QT Int : 278 ms P-R-T Axes : 000 -64 079 degrees QTc Int : 456 ms Atrial fibrillation with rapid ventricular response Left anterior fascicular block Septal infarct , age undetermined Abnormal ECG When compared with ECG of 15-AUG-2011 09:11, Atrial fibrillation has replaced Sinus rhythm Vent. rate has increased by 98 bpm Confirmed by Neno Tate ([id number]) on 08/23/2023 5:59:01 AM Referred By: Confirmed By:Neno Tate
[2023-08-23 07:00] LABS: ANTI-Xa, UFH(UnfractionatedHep 0.38 IU/ml (0.3-0.7)
--- NOTE | 2023-08-23 07:45 | XRay Report ---
XR chest 1V portable HISTORY: Atrial fibrillation. COMPARISON: None. FINDINGS: The cardiac silhouette is borderline enlarged. No pleural effusions. No pneumothorax. No ev idence for pulmonary edema. No focal lung consolidations to suggest a pneumonia. There are calcificat ions within the aortic knob. There is a questionable 2.1 cm right retrocardiac nodular density. IMPRESSION: 1. No acute process within the chest. 2. Questionable 2.1 cm right retrocardiac nodular density. Follow-up PA and lateral views of the ches t or chest CT are recommended to exclude the possibility of a pulmonary nodule. ACT 112: Negative or not required by law. Electronically signed by: Urbano Bledsoe M.D. 08/23/2023 7:44 AM
--- OUTSIDE RECORDS SUMMARY | 2023-08-23 08:20 | External Medical Summary | Summary of Care ---
Author Name Unknown Organization [facility] Address [address] [facility] [place] [address] Phone [phone] Care Team Providers Care Ferruler Name Role Phone Rolf Vera MD Primary Care Provide r Reason for Referral * Medication Prior Authorization - Pending Review Specialty Diagnoses / Procedures Referred By Contapple t Referred To Contact Diagnoses Type 2 diabetes mellitus with hemoglobin A1c goal of less than 7.0% (HCC) Dino Barragan MD [address] [place] [address] [place] [address] Referral ID Status Reason Start Date Expiration Date V isits Requested Visits Authorized [id number] Pending Review [phone] Reason for Visit * Reason Onset Date Comments Medication Refill 05/18/2023 Encounter Details Date Type Department Care Team (Late st Contact Info) Description 05/18/2023 Refill Family Medicine [address] [place] [phone] Rolf Vera MD [address] [place] [address] [place] [address] Type 2 diabetes mellitus with hemoglobin A1c goal of less than 7.0% (HCC) Allergies No known active allergiesdocumented as of this encounter (statuses as of 05/18/2023) Medications Medication Sig Dispensed Refills Start Date End Date Status MULTIVITAMIN/IRON PO TABS Take by mouth at bedtime . 100 3 10/21/2008 Active ZINC 10 MG MT LOZG Apply to the mouth or throat at bedtime . 0 Active Turmeric 500 MG Oral Capsule Take 1,000 mg by mouth daily. 0 Active Diclofenac Sodium 1 % External Gel (Voltaren)Indication s:Osteoarthritis of both hips, unspecified osteoarthritis type PLACE 2 G TOPICALLY ON THE SKIN 2 TIMES A DAY AREA DIRECTED. 100 g 1 03/10/2021 Active True Metrix Go Glucose Meter w/Device KitIndications:Type 2 diabetes mellitus with hemoglobin A1c goal of less than 7.0% (HCC) Use as directed . Check fasting glucose 1-2x/week 1 Kit 0 11/21/2021 Active ReliOn Lancets Micro-Thin 33GIndications:Type 2 diabetes mellitus with hemoglobin A1c goal of less than 7.0% (HCC) Use to test twice daily. E11.9 100 Each 1 11/21/2021 Active Acetaminophen 500 MG Oral Tablet (Tylenol) Take by mouth 1,000 mg every 6 hours as needed . 0 Active Aspirin 325 MG Oral Tablet (Cleopatra Aspirin) Take by mouth 650 mg every 6 hours as needed . 0 Active Ibuprofen 200 MG Oral Capsule Take by mouth 400 mg every 6 hours as needed . 0 Active Pantoprazole Sodium 40 MG Oral Tablet Delayed Release (Protonix)Indication s:Gastroesophageal reflux disease without esophagitis TAKE 1 TABLET BY MOUTH DAILY 30 MINUTES BEFORE FIRST MEAL OF DAY. DO NOT CRUSH, SPLIT OR CHEW. 90 Tablet 1 01/02/2023 Active Losartan Potassium 25 MG Oral Tablet (Cozaar)Indications: HTN, goal below 130/80 TAKE 1 TABLET BY MOUTH EVERY DAY 90 Tablet 3 02/27/2023 Active metFORMIN HCl ER 500 MG Oral Tablet Extended Release 24 Hour (Glucophage XR)Indications:Diabe karina mellitus without complication (HCC) TAKE 4 TABLETS BY MOUTH EVERY DAY 360 Tablet 3 02/27/2023 Active Atorvastatin Calcium 20 MG Oral Tablet (Lipitor)Indications :Dyslipidemia, goal LDL below 100 TAKE 1 TABLET BY MOUTH EVERY DAY 90 Tablet 3 02/27/2023 Active Dulaglutide 1.5 MG/0.5ML Subcutaneous Solution Pen-injector (TicketStumbler) Inject 1.5 mg under the skin once a week. 2 mL 2 04/12/2023 Active Cyclobenzaprine HCl 10 MG Oral Tablet (Flexeril)Indication s:Chronic bilateral low back pain without sciatica TAKE 1 TABLET BY MOUTH EVERYDAY AT BEDTIME 30 Tablet 0 05/16/2023 Active Tolterodine Tartrate ER 4 MG Oral Capsule Extended Release 24 Hour (Detrol LA) TAKE 1 CAPSULE BY MOUTH EVERY DAY 90 Capsule 1 05/16/2023 Active Ozempic (1 MG/DOSE) 4 MG/3ML Subcutaneous Solution Pen-injector (Semaglutide (1 MG/DOSE))Indications :Type 2 diabetes mellitus with hemoglobin A1c goal of less than 7.0% (HCC) Inject 1 mg under the skin once a week. 9 mL 1 05/18/2023 Active Ozempic (1 MG/DOSE) 4 MG/3ML Subcutaneous Solution Pen-injector (Semaglutide (1 MG/DOSE))Indications :Type 2 diabetes mellitus with hemoglobin A1c goal of less than 7.0% (HCC) Inject 1 mg under the skin once a week. 9 mL 1 01/10/2023 3 Discontinue d(Refill) documented as of this encounter (statuses as of 05/18/2023) Active Problems Problem Noted Date Diagnosed Date Centrilobular emphysema 01/30/2023 History of hysterectomy 04/17/2022 Type 2 diabetes mellitus wit h hemoglobin A1c goal of less than 7.0% 09/30/2020 HTN, goal below 130/80 09/30/2020 Diabetes mellitus without complication 0 Female stress incontinence 08/16/2011 ADVANCE DIRECTIVE INFORMATION 05/04/2011 Overview: No, Advance Directive brochure offered , patient declined. Lumbago Need for prophylactic hormon e replacement therapy (postmenopausal) Menopause Tobacco abuse disorder documented as of this encounter (statuses as of 05/18/2023) Resolved Problems Problem Noted Date Diagnosed Date Resolved Date Encounter for examination fo r normal comparison and control in clinical research program 09/13/2012 12/19/2012 Overview: Diagnosis changed due to Research Module. Go to Snapshot for study details. Lateral epicondylitis 08/09/20012011 Overview: right lateral epicondylitis started throwing candy out a window during a parade. Starting PT at [facility] Lateral epicondylitis 2010 GENERALIZED ANXIETY DIS 03/10 documented as of this encounter (statuses as of 05/18/2023) Immunizations Name Administration Dates Next Due COVID-19 mRNA, LNP-s, No Pre serve, 2-Dose Series (Pfizer) 11/20/2020,10/30/2020 PPD 04/02/2012 Pneumococcal Polysaccharide PPV23 (Pneumovax) 05/16/2011(Deferred: Patient Refused) Seasonal Influenza, Quadriva lent, No Preserve, IM 03/24/2020,03/10/2017 Seasonal Influenza, Quadriva lent, No Preserve, Mdck 03/10/2019 Seasonal Influenza, Split, I IV3, With Preserve, Inj 03/27/2016,04/13/2015,03/20/2014,05/16(Deferred: Patient Refused) TDAP (age 10 and older)(Boostrix) 10/08/2018 TDAP (age 11 and older)(Adacel) 11/20/2007 Zoster Vaccine Recombinant (Shingrix) ,11/27/2019(Deferred: Patient Refused) documented as of this encounter Social History Tobacco Use Types Packs/Day Years Used Date Smoking Tobacco: Every Day Cigarettes 1 42 Started: 1976 Smokeless Tobacco: Never Comments:started age 16, res tarted 01/2009 Alcohol Use Standard Drinks/Week Comments No 0 (1 standard drink = 0.6 oz pur e alcohol) PHQ-2 Answer Date Recorded PHQ Adult Total Score 0 01/26/2022 Hunger Vital Sign Answer Date Recorded Within the past 12 months, y ou worried that your food would run out before you got the money to buy more. Never true 01/17/20 23 Within the past 12 months, t he food you bought just didn't last and you didn't have money to get more. Never true 01/16/2023 Sex and Gender Information Value Date Recorded Sex Assigned at Female 04/02/2022 10:33 AM EDT Gender Identity Female 04/02/2022 10:33 AM EDT Sexual Orientation Straight 04/02/2022 10 :33 AM EDT Job Start Date Occupation Industry Not on file Not on file Not on file documented as of this encounter Miscellaneous Notes * Telephone Encounter - Dino Barragan MD - 05/18/2023 3:09 PM EST Signed Prescriptions: Disp Refills Ozempic (1 MG/DOSE) 4 MG/3ML Subcutaneous *9 mL 1 Sig: Inject 1 mg under the skin once a week. Authorizing Provider: DINO BARRAGAN * Telephone Encounter - Sherry Pope CMA - 05/18/2023 2:44 PM ESTPending Prescriptions: Disp Refills Ozempic (1 MG/DOSE) 4 MG/3ML Subcutaneous *9 mL 1 Sig: Inject 1 mg under the skin once a week. * Telephone Encounter - Martha Gaspar - 05/18/2023 2:09 PM EST Did you pend patient's preferred pharmacy and medication before forwarding?no Pharmacy: [id number] [id number] [facility] Pending Prescriptions: Disp Refills Ozempic (1 MG/DOSE) 4 MG/3ML Subcutaneous*9 mL 1 Sig: Inject 1 mg under the skin once a week. Last Visit: 01/30/2023 (in office), Visit date not found (telemedicine) Next Visit: 08/02/2023 If no future appointments scheduled, and last appointment is greater than a year ago, please schedule patient for a follow-up appointment Last date the medication was ordered: 7.5.2023 Is this request for a controlled substance?No Urine Drug Screen:No results found for this or any previous visit. Patient Phone Numbers Labs: Lab Results Component Value Date/Time CREAT 0.75 02/03/2023 12:00 AM CREAT 0.6 02/28/2011 11:00 AM POTASSIUM 4.8 02/03/2023 12:00 AM POTASSIUM 4.4 02/28/2011 11:00 AM TSH 0.406 (A) 09/30/2022 12:00 AM TSH 0.39 11/20/2007 02:21 PM LDLCALC 63 02/03/2023 12:00 AM LDLCALC 134 (H) 10/08/2017 09:23 AM LDLDIRECT 161 (H) 09/18/2012 11:02 AM ALT 25 02/03/2023 12:00 AM ALT 11 09/18/2012 11:02 AM HGBA1C 7.0 (A) 02/03/2023 12:00 AM documented in this encounter Plan of Treatment Upcoming Encounters Date Type Department Care Team (Late st Contact Info) Description 08/02/2023 9:40 AM EST Office Visit Family Medicine [address] [place] [phone] Rolf Vera MD [address] [place] [address] [place] [address] 05/07/2024 10:00 AM EDT Imaging Radiology [address] [place] [address] Scheduled Procedures Name Priority Associated Diagnoses Date/Ti me COLONOSCOPY FLEXIBLE PROXIMA L DIAGNOSTIC Recall Encounter for screening colonoscopy Health Maintenance Due Date Last Done Comments DISCUSS TOBACCO CESSATION (REFER TO SMARTSET #9630) 1962 Pneumococcal Vaccine: Pediatrics (0 to 5 Years) and At-Risk Patients (6 to 64 Years) (1 - PCV) 1968 HIV Screening 1977 Alpha-1 Antitrypsin 1980 Cologuard 2007 Sigmoidoscopy 2007 Fecal Occult Blood Test 10/05/2017 10/05/2016 Zoster Vaccines (2 of 2) 06/02/2020 04/07/2020 Hepatitis B (1 of 3 - Risk 3-dose series) 2022 Depression Screening 01/26/2023 01/26/2022 *COPD SEVERITY VERIFIED BY PFT 02/02/2023 COVID-19 Vaccine (3 - season) 2023 11/20/2020, 10/30/2020 Influenza Vaccine (FLU shot) (#1) 2023 03/24/2020, 03/10/2019, 10/08/2017 (Refused), Additional history exists Diabetic Foot Exam 08/03/2023 08/03/2022, 0 07/27/2021, 09/30/2020, Additional history exists HbA1c 08/06/2023 02/03/2023, 07/10, 01/28/2022, Additional history exists O2 ASSESSMENT COMPLETED IN PAST YEAR FOR COPD 01/31/2024 01/30/2023 Albumin/Creatinine Ratio 02/04/2024 023, 08/05/2022, 08/06/2021, Additional history exists GFR 02/04/2024 02/03/2023, 07/10, 04/22/2022, Additional history exists Mammogram 04/26/2024 04/26/2023, 04/08, 04/18/2021, Additional history exists Diabetic Eye Exam 05/17/2024 05/17/2023, , 06/07/2022, Additional history exists Colonoscopy 01/30/2028 01/29/2018, 01/29/2018 Colorectal Cancer Screening 01/30/2028 Lipid Panel 02/04/2028 02/03/2023, 07/10, 10/02/2020, Additional history exists DTaP,Tdap,and Td Vaccines (3 - Td or Tdap) 10/08/2028 10/08/2018, 11/20/2007 LUNG CANCER SCREENING - USE SMARTSET 00273 Completed 01/11/2023, 12/15/2020 GARDASIL-HPV IMMUNIZATION SERIES Aged Out No longer eligible based on patient's age to complete this topic MENINGOCOCCAL (MENACTRA/MENVEO) Aged Out No longer eligible based on patient's age to complete this topic documented as of this encounter Medical Devices Implanted Type Area Mincemeat Maker Device Identifier Shelf Expiration Date Model / Serial / Lot Lens Intraoc 18.5 - [id number] - [id number] Implanted:Qty: 1 on 01/10/2022 by Chris Umana MD at OR [facility] Left: Eye BAUSCH & LOMB 08/08/2026 [id number] / [id number] / [id number] Lens Intraoc 18.5 - [id number] - [id number] Implanted:Qty: 1 on 01/24/2022 by Chris Umana MD at OR [facility] Right: Eye BAUSCH & LOMB 10/06/2026 [id number] / [id number] / [id number] documented as of this encounter Visit Diagnoses Diagnosis Type 2 diabetes mellitus with hemoglobin A1c goal of less than 7.0% ([facility]) documented in this encounter Care Teams Ferruler Relationship Specialty Start Date End Date Rolf Vera MD [address] [place] [address] [place] [phone] PCP - General Family Medicine 08/27/19 documented as of this encounter
--- OUTSIDE RECORDS SUMMARY | 2023-08-23 08:20 | External Medical Summary | Summary of Care ---
Author Name Unknown Organization [facility] Address [address] [facility] [place] [address] Phone [phone] Care Team Providers Care Women'S Soccer Coach Name Role Phone Rolf Vera MD Primary Care Provide r Reason for Visit * Reason Onset Date Comments Health Maintenance 07/04/2023 Encounter Details Date Type Department Care Team (Late st Contact Info) Description 07/04/2023 Telephone Family Medicine [address] [phone] Rolf Vera MD [address] [place], [place] [address] [address] Health Maintenance Allergies No known active allergiesdocumented as of this encounter (statuses as of 07/04/2023) Medications Medication Sig Dispensed Refills Start Date End Date Status MULTIVITAMIN/IRON PO TABS Take by mouth at bedtime . 100 3 10/21/2008 Active ZINC 10 MG MT LOZG Apply to the mouth or throat at bedtime . 0 Active Turmeric 500 MG Oral Capsule Take 1,000 mg by mouth daily. 0 Active Diclofenac Sodium 1 % External Gel (Voltaren)Indications :Osteoarthritis of both hips, unspecified osteoarthritis type PLACE 2 G TOPICALLY ON THE SKIN 2 TIMES A DAY AREA DIRECTED. 100 g 1 03/10/2021 Active True Metrix Go Glucose Meter w/Device KitIndications:Type 2 diabetes mellitus with hemoglobin A1c goal of less than 7.0% ([facility]) Use as directed . Check fasting glucose [...] Sodium 40 MG Oral Tablet Delayed Release (Protonix)Indications :Gastroesophageal reflux disease without esophagitis TAKE 1 TABLET BY MOUTH DAILY 30 MINUTES BEFORE FIRST MEAL OF DAY. DO NOT CRUSH, SPLIT OR CHEW. 90 Tablet 1 01/02/2023 Active Losartan Potassium 25 MG Oral Tablet (Cozaar)Indications:H TN, goal below 130/80 TAKE 1 TABLET BY MOUTH EVERY DAY 90 Tablet 3 02/27/2023 Active metFORMIN HCl ER 500 MG Oral Tablet Extended Release 24 Hour (Glucophage XR)Indications:Diabet es mellitus without complication (HCC) TAKE 4 TABLETS BY MOUTH EVERY DAY 360 Tablet 3 02/27/2023 Active Atorvastatin Calcium 20 MG Oral Tablet (Lipitor)Indications: Dyslipidemia, goal LDL below 100 TAKE 1 TABLET BY MOUTH EVERY DAY 90 Tablet 3 02/27/2023 Active Dulaglutide 1.5 MG/0.5ML Subcutaneous Solution Pen-injector (Trulicity) Inject 1.5 mg under the skin once a week. 2 mL 2 04/12/2023 Active Cyclobenzaprine HCl 10 MG Oral Tablet (Flexeril)Indications :Chronic bilateral low back pain without sciatica TAKE 1 TABLET BY MOUTH EVERYDAY AT BEDTIME 30 Tablet 0 05/16/2023 Active Tolterodine Tartrate ER 4 MG Oral Capsule Extended Release 24 Hour (Detrol LA) TAKE 1 CAPSULE BY MOUTH EVERY DAY 90 Capsule 1 05/16/2023 Active Ozempic (1 MG/DOSE) 4 MG/3ML Subcutaneous Solution Pen-injector (Semaglutide (1 MG/DOSE))Indications: Type 2 diabetes mellitus with hemoglobin A1c goal of less than 7.0% ([facility]) Inject 1 mg under the skin once a week. 9 mL 1 05/18/2023 Active documented as of this encounter (statuses as of 07/04/2023) Active Problems Problem Noted Date Diagnosed Date [...] as of this encounter (statuses as of 07/04/2023) Resolved Problems Problem Noted Date Diagnosed Date [...] as of this encounter (statuses as of 07/04/2023) Immunizations Name Administration Dates Next Due COVID-19 mRNA, LNP-s, No Pre serve, 2-Dose Series (Dianping) 11/20/2020,10/30/2020 PPD 04/02/2012 Pneumococcal Polysaccharide PPV23 (Pneumovax) [...] encounter Miscellaneous Notes * Telephone Encounter - Michael GarciaMADHAVI carey - 07/04/2023 3:09 PM EST Care Gaps Comprehensive Care Outreach Last Office/Telemedicine Visit: 01/30/2023 (in office), Visit date not found (telemedicine) Next Office Visit: 08/02/2023 Hemoglobin AIC Results: No results found for: "HEMOGLOBIN A1C" Reviewed Health Maintenance below: Health Maintenance Topic Date Due DISCUSS TOBACCO CESSATION (REFER TO SMARTSET #6949) Never done Pneumococcal Vaccine: Pediatrics (0 to 5 Years) and At-Risk Patients (6 to 64 Years) (1 - PCV) Never done HIV Screening Never done Alpha-1 Antitrypsin Never done Zoster Vaccines (2 of 2) 06/02/2020 Hepatitis B (1 of 3 - Risk 3-dose series) Never done Depression Screening 01/26/2023 *COPD SEVERITY VERIFIED BY PFT Never done Influenza Vaccine (FLU shot) (1) 03/09/2023 COVID-19 Vaccine (3 - 2022-24 season) 2023 Diabetic Foot Exam 08/03/2023 HbA1c 08/06/2023 Labs already ordered Care Gap Outreach Action Taken: Outreach not indicated documented in this encounter Plan of Treatment Upcoming Encounters Date Type Department Care Team (Late st Contact Info) Description 08/02/2023 9:40 AM EST Office Visit Family Medicine [address] [place] [phone] Rolf Vera MD [address] [place] [address] [place] [address] 05/07/2024 10:00 AM EDT Imaging Radiology [address] [place] [address] Scheduled Procedures Name Priority Associated Diagnoses Date/Ti me COLONOSCOPY FLEXIBLE PROXIMA L DIAGNOSTIC Recall Encounter for screening colonoscopy Health Maintenance Due Date Last Done Comments DISCUSS TOBACCO CESSATION (REFER TO SMARTSET #2778) 1960 Pneumococcal Vaccine: Pediatrics (0 to 5 [...] SEVERITY VERIFIED BY PFT 02/02/2023 COVID-19 Vaccine ( season) 2023 11/20/2020, 10/30/2020 Influenza Vaccine (FLU [...] 11/20/2007 LUNG CANCER SCREENING - USE SMARTSET 39781 Completed 01/11/2023, 12/15/2020 GARDASIL-HPV IMMUNIZATION SERIES Aged Out No longer eligible based on patient's age to complete this topic MENINGOCOCCAL (MENACTRA/MENVEO) Aged Out No longer eligible based on patient's age to complete this topic documented as of this encounter Medical Devices Implanted Type Area Tour Narrator Device Identifier Shelf Expiration Date Model / Serial / Lot Lens Intraoc 18.5 - [id number] - [id number] Implanted:Qty: 1 on 01/10/2022 by Chris Umana MD at OR [facility] Left: Eye BAUSCH & LOMB 08/08/2026 [id number] / [id number] / [id number] Lens Intraoc 18.5 - [id number] - [id number] Implanted:Qty: 1 on 01/24/2022 by Chris Umana MD at OR [facility] Right: Eye BAUSCH & LOMB 10/06/2026 [id number] / [id number] / [id number] documented as of this encounter Care Teams Women'S Soccer Coach Relationship Specialty Start Date End Date Rolf Vera MD [address] [place] [address] [place] [phone] PCP - General Family Medicine 08/27/19 documented as of this encounter
--- OUTSIDE RECORDS SUMMARY | 2023-08-23 08:20 | External Medical Summary | Summary of Care ---
Author Name Unknown Organization [facility] Address [address] [facility] [place] [address] Phone [phone] Care Team Providers Care Reference Archivist Name Role Phone Rolf Vera MD Primary Care Provide r Encounter Details Date Type Department Care Team (Late st Contact Info) Description 08/06/2023 Orders Only PATIENT PORTAL DO NOT DELETE THIS DEPT USED BY [place] [id number] Allergies No known active allergiesdocumented as of this encounter (statuses as of 08/06/2023) Medications Medication Sig Dispensed Refills Start Date [...] hemoglobin A1c goal of less than 7.0% ([facility]) Use as directed . Check fasting glucose 1-2x/week 1 Kit 0 11/21/2021 Active ReliOn Lancets Micro-Thin 33GIndications:Type 2 diabetes mellitus with hemoglobin A1c goal of less than 7.0% ([facility]) Use to test twice daily. E11.9 100 Each 1 11/21/2021 Active Acetaminophen 500 MG Oral Tablet (Tylenol) Take 2 Tablets by mouth every 6 hours as needed. 0 Active Aspirin 325 MG Oral Tablet (Cleopatra Aspirin) Take 2 Tablets by mouth every 6 hours as needed. 0 Active Ibuprofen 200 MG Oral Capsule Take 2 Capsules by mouth every 6 hours as needed. 0 Active Losartan Potassium 25 MG Oral Tablet [...] EVERY DAY 90 Tablet 3 02/27/2023 Active Cyclobenzaprine HCl 10 MG Oral Tablet (Flexeril)Indications :Chronic bilateral low back pain without sciatica TAKE 1 TABLET BY MOUTH EVERYDAY AT BEDTIME 30 Tablet 0 05/16/2023 Active Tolterodine Tartrate ER 4 MG Oral Capsule Extended Release 24 Hour (Detrol LA) TAKE 1 CAPSULE BY MOUTH EVERY DAY 90 Capsule 1 05/16/2023 Active Pantoprazole Sodium 40 MG Oral Tablet Delayed Release (Protonix)Indications :Gastroesophageal reflux disease without esophagitis TAKE 1 TABLET BY MOUTH DAILY 30 MINUTES BEFORE FIRST MEAL OF DAY. DO NOT CRUSH, SPLIT OR CHEW. 90 Tablet 1 07/06/2023 Active Ozempic (1 MG/DOSE) 4 MG/3ML Subcutaneous Solution Pen-injector (Semaglutide (1 MG/DOSE))Indications: Type 2 diabetes mellitus with hemoglobin A1c goal of less than 7.0% ([facility]) Inject 1 mg under the skin once a week. 9 mL 1 08/02/2023 Active documented as of this encounter (statuses as of 08/06/2023) Active Problems Problem Noted Date Diagnosed Date [...] as of this encounter (statuses as of 08/06/2023) Resolved Problems Problem Noted Date Diagnosed Date Resolved Date Encounter for examination fo r normal comparison and control in clinical research program 09/13/2012 12/19/2012 Overview: Diagnosis changed due to Research Module. Go to Snapshot for study details. Lateral epicondylitis 08/09/20012011 Overview: right lateral epicondylitis started throwing candy out a window during a parade. Starting PT at [facility] Lateral epicondylitis 2010 GENERALIZED ANXIETY DIS 03/10 documented as of this encounter (statuses as of 08/06/2023) Immunizations Name Administration Dates Next Due COVID-19 [...] on file documented as of this encounter Plan of Treatment Upcoming Encounters Date Type Department Care Team (Late st Contact Info) Description 10/10/2023 9:00 AM EDT Office Visit Family Medicine [address] [place] [phone] Rolf Vera MD [address] [place] [address] [place] [address] 05/07/2024 10:00 AM EDT Imaging Radiology [address] [place] [address] Scheduled Procedures Name Priority Associated Diagnoses Date/Ti me COLONOSCOPY FLEXIBLE PROXIMA L DIAGNOSTIC Recall Encounter for screening colonoscopy Health Maintenance Due Date Last Done Comments DISCUSS TOBACCO CESSATION (REFER TO SMARTSET #2025) 1960 Pneumococcal Vaccine: Pediatrics (0 to 5 [...] 03/24/2020, 03/10/2019, 10/08/2017 (Refused), Additional history exists HbA1c 08/06/2023 02/03/2023, 07/10, 01/28/2022, Additional history exists O2 ASSESSMENT COMPLETED IN PAST YEAR FOR COPD 01/31/2024 01/30/2023 Albumin/Creatinine Ratio 02/04/2024 023, 08/05/2022, 08/06/2021, Additional history exists GFR 02/04/2024 02/03/2023, 07/10, 04/22/2022, Additional history exists Mammogram 04/26/2024 04/26/2023, 04/08, 04/18/2021, Additional history exists Diabetic Eye Exam 05/17/2024 05/17/2023, , 06/07/2022, Additional history exists Diabetic Foot Exam 08/02/2024 08/02/2023, 0 08/03/2022, 07/27/2021, Additional history exists Colonoscopy 01/30/2028 01/29/2018, 01/29/2018 Colorectal Cancer Screening 01/30/2028 Lipid Panel 02/04/2028 02/03/2023, 07/10, 10/02/2020, Additional history exists DTaP,Tdap,and Td Vaccines (3 - Td or Tdap) 10/08/2028 10/08/2018, 11/20/2007 LUNG CANCER SCREENING - USE SMARTSET 07381 Completed 01/11/2023, 12/15/2020 GARDASIL-HPV IMMUNIZATION SERIES Aged Out No longer eligible based on patient's age to complete this topic MENINGOCOCCAL (MENACTRA/MENVEO) Aged Out No longer eligible based on patient's age to complete this topic documented as of this encounter Medical Devices Implanted Type Area Chisel Worker Device Identifier Shelf Expiration Date Model / Serial / Lot Lens Intraoc 18.5 - [id number] - [id number] Implanted:Qty: 1 on 01/10/2022 by Chris Umana MD at OR [facility] Left: Eye BAUSCH & LOMB 08/08/2026 [id number] / [id number] / [id number] Lens Intraoc 18.5 - [id number] - [id number] Implanted:Qty: 1 on 01/24/2022 by Chris Umana MD at OR [facility] Right: Eye BAUSCH & LOMB 10/06/2026 [id number] / [id number] / [id number] documented as of this encounter Care Teams Reference Archivist Relationship Specialty Start Date End Date Rolf Vera MD [address] [place] [address] [place] [phone] PCP - General Family Medicine 08/27/19 documented as of this encounter
--- OUTSIDE RECORDS SUMMARY | 2023-08-23 08:20 | External Medical Summary | Summary of Care ---
Author Name Unknown Organization [facility] Address [address] [place] [address] Phone [phone] Care Team Providers Care Dip Dyer Name Role Phone Rolf Vera MD Primary Care Provide r Encounter Details Date Type Department Care Team Description 02/28/2023 Orders Only Outcomes Research Department [address], [place] [id number] Rachel Bueno CHRA [employer] Research Other*[id number] Allergies No known active allergiesdocumented as of this encounter (statuses as of 02/28/2023) Medications Medication Sig Dispensed Refills Start Date [...] hemoglobin A1c goal of less than 7.0% ([facility]) Use as directed . Check fasting [...] 6 hours as needed . 0 Active Cyclobenzaprine HCl 10 MG Oral Tablet (Flexeril)Indications :Chronic bilateral low back pain without sciatica TAKE 1 TABLET BY MOUTH EVERYDAY AT BEDTIME 30 Tablet 0 07/17/2022 Active Tolterodine Tartrate ER 4 MG Oral Capsule Extended Release 24 Hour (Detrol LA) TAKE 1 CAPSULE BY MOUTH EVERY DAY 90 Capsule 1 11/29/2022 Active Pantoprazole Sodium 40 MG Oral Tablet Delayed Release (Protonix)Indications :Gastroesophageal reflux disease without esophagitis TAKE 1 TABLET BY MOUTH DAILY 30 MINUTES BEFORE FIRST MEAL OF DAY. DO NOT CRUSH, SPLIT OR CHEW. 90 Tablet 1 01/02/2023 Active Ozempic (1 MG/DOSE) 4 MG/3ML Subcutaneous Solution Pen-injector (Semaglutide (1 MG/DOSE))Indications: Type 2 diabetes mellitus with hemoglobin A1c goal of less than 7.0% (HCC) Inject 1 mg under the skin once a week. 9 mL 1 01/10/2023 Active Losartan Potassium 25 MG Oral Tablet [...] EVERY DAY 90 Tablet 3 02/27/2023 Active documented as of this encounter (statuses as of 02/28/2023) Active Problems Problem Noted Date Centrilobular emphysema 01/30/2023 History of hysterectomy 04/17/2022 Type 2 diabetes mellitus with hemoglobin A1c goal of less than 7.0% 09/30/2020 HTN, goal below 130/80 09/30/2020 Diabetes mellitus without complication 0 08/27/2019 Female stress incontinence 08/16/2011 ADVANCE DIRECTIVE INFORMATION 05/04/2011 Overview: No, Advance Directive brochure offered , patient declined. Lumbago Need for prophylactic hormone replacemen t therapy (postmenopausal) Menopause Tobacco abuse disorder documented as of this encounter (statuses as of 02/28/2023) Resolved Problems Problem Noted Date Resolved Date Encounter for examination fo r normal comparison and control in clinical research program 09/13/2012 12/19/2012 Overview: Diagnosis changed due to Research Module. Go to Snapshot for study details. Lateral epicondylitis 08/09/2001 04/02/2012 Overview: right lateral epicondylitis started throwing candy out a window during a parade. Starting PT at [facility] Lateral epicondylitis 04/27/2011 GENERALIZED ANXIETY DIS 04/02/20 12 documented as of this encounter (statuses as of 02/28/2023) Immunizations Name Administration Dates Next Due COVID-19 [...] drink = 0.6 oz pur e alcohol) Food Insecurity Answer Date Recorded Within the past 12 months, y ou worried that your food would run out before you got money to buy more. Never true 01/16/2023 Within the past 12 months, t he food you bought just didn't last and you didn't have money to get more. Never true 01/16/2023 Sex Assigned at Date Recorded Female 04/02/2022 10:33 AM EDT Job Start Date Occupation Industry Not on file Not on file Not on file documented as of this encounter Plan of Treatment Upcoming Encounters Date Type Specialty Care Team Description 04/26/2023 Imaging Radiology 08/02/2023 Office Visit Family Medicine Rolf Vera MD [address] [place] [address] [place] [address] Scheduled Orders Name Type Priority Associated Diagnoses Orde r Schedule MYCODE SUBSEQUENT ADULT Lab Routine [employer] Research Other*[id number] Every 6 Months for 2 Occurrences starting 02/28/2023 until 03/19/2024 Scheduled Procedures Name Priority Associated Diagnoses Date/Ti me COLONOSCOPY FLEXIBLE PROXIMA L DIAGNOSTIC Recall Encounter for screening colonoscopy Health Maintenance Due Date Last Done Comments DISCUSS TOBACCO CESSATION (REFER TO SMARTSET #3295) 1962 Pneumococcal Vaccine: Pediatrics (0 to 5 Years) and At-Risk Patients (6 to 64 Years) (1 - PCV) 1968 HIV Screening 1977 Alpha-1 Antitrypsin 1980 Cologuard 2007 Sigmoidoscopy 2007 Fecal Occult Blood Test 10/05/2017 10/05/2016 Zoster Vaccines (2 of 2) 06/02/2020 04/07/2020 COVID-19 Vaccine (3 - Pfizer series) 01/15/2021 11/20/2020, 10/30/2020 Depression Screening, Annual for Pts 12 and Over 01/26/2023 01/26/2022 *COPD SEVERITY VERIFIED BY PFT 02/02/2023 Influenza Vaccine (FLU shot) (#1) 2023 03/24/2020, 03/10/2019, 10/08/2017 (Refused), Additional history exists Mammogram 04/25/2023 04/25/2022, 04/08, 04/12/2020, Additional history exists DIABETES-FOOT EXAM 08/03/2023 08/03/2022, 0 07/27/2021, 09/30/2020, Additional history exists HbA1c 08/06/2023 02/03/2023, 07/10, 01/28/2022, Additional history exists DIABETES-EYE EXAM 11/10/2023 11/09/2022, , 09/21/2021, Additional history exists O2 ASSESSMENT COMPLETED IN PAST YEAR FOR COPD 01/31/2024 01/30/2023 Albumin/Creatinine Ratio 02/04/2024 023, 08/05/2022, 08/06/2021, Additional history exists GFR 02/04/2024 02/03/2023, 07/10, 04/22/2022, Additional history exists Colonoscopy 01/30/2028 01/29/2018, 01/29/2018 Colorectal Cancer Screening 01/30/2028 Lipid Panel 02/04/2028 02/03/2023, 07/10, 10/02/2020, Additional history exists DTaP,Tdap,and Td Vaccines (3 - Td or Tdap) 10/08/2028 10/08/2018, 11/20/2007 LUNG CANCER SCREENING - USE SMARTSET 09502 Completed 01/11/2023, 12/15/2020 GARDASIL-HPV IMMUNIZATION SERIES Aged Out No longer eligible based on patient's age to complete this topic Hepatitis B Aged Out No longer eligi ble based on patient's age to complete this topic MENINGOCOCCAL (MENACTRA/MENVEO) Aged Out No longer eligible based on patient's age to complete this topic documented as of this encounter Medical Devices Implanted Type Area Inshore Undersea Warfare Officer Device Identifier Shelf Expiration Date Model / Serial / Lot Lens Intraoc 18.5 - [id number] - [id number] Implanted:Qty: 1 on 01/10/2022 by Chris Umana MD at [facility] Left: Eye BAUSCH & LOMB 08/08/2026 [id number] / [id number] / [id number] Lens Intraoc 18.5 - [id number] - [id number] Implanted:Qty: 1 on 01/24/2022 by Chris Umana MD at [facility] Right: Eye BAUSCH & LOMB 10/06/2026 [id number] / [id number] / [id number] documented as of this encounter Visit Diagnoses Diagnosis MyCode Research Other*[id number] documented in this encounter Care Teams Dip Dyer Relationship Specialty Start Date End Date Rolf Vera MD [address] [place] [address] [place] [address] PCP - General Family Medicine 08/27/19 documented as of this encounter
--- OUTSIDE RECORDS SUMMARY | 2023-08-23 08:20 | External Medical Summary | Summary of Care ---
Author Name Unknown Organization [facility] Address [address] [facility] [place] [address] Phone [phone] Care Team Providers Care Other Sports Official Name Role Phone Rolf Vera MD Primary Care Provide r Reason for Visit * Reason Comments eRx-Medication Refill Encounter Details Date Type Department Care Team Description 04/03/2023 Refill Family Medicine [address] [place] [address] Rolf Vera MD [address] [place] [address] [place] [address] Allergies No known active allergiesdocumented as of this encounter (statuses as of 04/04/2023) Medications Medication Sig Dispensed Refills Start Date [...] goal of less than 7.0% ([facility]) Use as directed . Check fasting glucose 1-2x/week 1 Kit 0 11/21/2021 Active ReliOn Lancets Micro-Thin 33GIndications:Type 2 diabetes mellitus with hemoglobin A1c goal of less than 7.0% ([facility]) Use to test twice daily. E11.9 [...] goal of less than 7.0% ([facility]) Inject 1 mg under the skin once a week. 9 mL 1 01/10/2023 Active Losartan Potassium 25 MG Oral Tablet (Cozaar)Indications:H TN, goal below 130/80 TAKE 1 TABLET BY MOUTH EVERY DAY 90 Tablet 3 02/27/2023 Active metFORMIN HCl ER 500 MG Oral Tablet Extended Release 24 Hour (Glucophage XR)Indications:Diabet es mellitus without complication ([facility]) TAKE 4 TABLETS BY MOUTH EVERY DAY 360 Tablet 3 02/27/2023 Active Atorvastatin Calcium 20 MG Oral Tablet (Lipitor)Indications: Dyslipidemia, goal LDL below 100 TAKE 1 TABLET BY MOUTH EVERY DAY 90 Tablet 3 02/27/2023 Active documented as of this encounter (statuses as of 04/04/2023) Active Problems Problem Noted Date Centrilobular emphysema [...] as of this encounter (statuses as of 04/04/2023) Resolved Problems Problem Noted Date Resolved Date Encounter for examination fo r normal comparison and control in clinical research program 09/13/2012 12/19/2012 Overview: Diagnosis changed due to Research Module. Go to Snapshot for study details. Lateral epicondylitis 08/09/2001 04/02/2012 Overview: right lateral epicondylitis started throwing candy out a window during a parade. Starting PT at [facility] Lateral epicondylitis 04/27/2011 GENERALIZED ANXIETY DIS 04/02/20 12 documented as of this encounter (statuses as of 04/04/2023) Immunizations Name Administration Dates Next Due COVID-19 [...] encounter Miscellaneous Notes * Telephone Encounter - Alexandro Alvarado RPh - 04/04/2023 11:33 AM EDTRefused Prescriptions: Disp Refills Ozempic (0.25 or 0.5 MG/DOSE) 2 MG/1.5ML S* 2 Sig: INJECT UNDERTHE SKIN 0.5 MG ONCE A WEEK .Refused By: ALEXANDRO ALVARADO for Refusal: Dose needs clarificationReason for Refusal Comment: 1mg documented in this encounter Plan of Treatment Upcoming Encounters Date Type Specialty Care Team Description 04/26/2023 Imaging Radiology 08/02/2023 Office Visit Family Medicine Rolf Vera MD [address] [place] [address] [place] [address] Scheduled Procedures Name Priority Associated Diagnoses Date/Ti me COLONOSCOPY FLEXIBLE PROXIMA L DIAGNOSTIC Recall Encounter for screening colonoscopy Health Maintenance Due Date Last Done Comments DISCUSS TOBACCO CESSATION (REFER TO SMARTSET #6081) 1960 Pneumococcal Vaccine: Pediatrics (0 to 5 Years) and At-Risk Patients (6 to 64 Years) (1 - PCV) 1968 HIV Screening 1977 Alpha-1 Antitrypsin 1980 Cologuard 2007 Sigmoidoscopy 2007 Fecal Occult Blood Test 10/05/2017 10/05/2016 Zoster Vaccines (2 of 2) 06/02/2020 04/07/2020 COVID-19 Vaccine (3 - Pfizer series) 01/15/2021 11/20/2020, 10/30/2020 Depression Screening 01/26/2023 01/26/2022 *COPD SEVERITY VERIFIED BY PFT 02/02/2023 Influenza Vaccine (FLU shot) (#1) 2023 03/24/2020, 03/10/2019, 10/08/2017 (Refused), Additional history exists Mammogram 04/25/2023 04/25/2022, 04/08, 04/12/2020, Additional history exists Diabetic Foot Exam 08/03/2023 [...] 11/20/2007 LUNG CANCER SCREENING - USE SMARTSET 06656 Completed 01/11/2023, 12/15/2020 GARDASIL-HPV IMMUNIZATION SERIES Aged Out No longer eligible based on patient's age to complete this topic Hepatitis B Aged Out No longer eligi ble based on patient's age to complete this topic MENINGOCOCCAL (MENACTRA/MENVEO) Aged Out No longer eligible based on patient's age to complete this topic documented as of this encounter Medical Devices Implanted Type Area Consumer Loan Manager Device Identifier Shelf Expiration Date Model / Serial / Lot Lens Intraoc 18.5 - [id number] - [id number] Implanted:Qty: 1 on 01/10/2022 by Chris Umana MD at [facility] Left: Eye BAUSCH & LOMB 08/08/2026 [id number] / [id number] / [id number] Lens Intraoc 18.5 - [id number] - [id number] Implanted:Qty: 1 on 01/24/2022 by Chris Umana MD at [facility] Right: Eye BAUSCH & LOMB 10/06/2026 [id number] / [id number] / [id number] documented as of this encounter Care Teams Other Sports Official Relationship Specialty Start Date End Date Rolf Vera MD [address] [place] [address] [place] [address] PCP - General Family Medicine 08/27/19 documented as of this encounter
--- OUTSIDE RECORDS SUMMARY | 2023-08-23 08:20 | External Medical Summary | Summary of Care ---
Author Name Unknown Organization [facility] [address] [facility] [address] Phone [phone] Care Team Providers Care Apartment Locator Name Role Phone Rolf Vera MD Primary Care Provide r Reason for Visit * Reason Comments eRx-Medication Refill Encounter Details Date Type Department Care Team (Late st Contact Info) Description 07/06/2023 Refill Family Medicine [address] [address] Rolf Vera MD [address] [place] [address] [place] [address] Gastroesophageal reflux disease without esophagitis Allergies No known active allergiesdocumented as of this encounter (statuses as of 07/06/2023) Medications Medication Sig Dispensed Refills Start Date End Date Status MULTIVITAMIN/IRON PO TABS Take by mouth at bedtime . 100 3 10/21/2008 Active ZINC 10 MG MT LOZG Apply to the mouth or throat at bedtime . 0 Active Turmeric 500 MG Oral Capsule Take 1,000 mg by mouth daily. 0 Active Diclofenac Sodium 1 % External Gel (Voltaren)Indicatio ns:Osteoarthritis of both hips, unspecified osteoarthritis type PLACE [...] 6 hours as needed . 0 Active Losartan Potassium 25 MG Oral Tablet (Cozaar)Indications :HTN, goal below 130/80 TAKE 1 TABLET BY MOUTH EVERY DAY 90 Tablet 3 02/27/2023 Active metFORMIN HCl ER 500 MG Oral Tablet Extended Release 24 Hour (Glucophage XR)Indications:Diab etes mellitus without complication (HCC) TAKE 4 TABLETS BY MOUTH EVERY DAY 360 Tablet 3 02/27/2023 Active Atorvastatin Calcium 20 MG Oral Tablet (Lipitor)Indication s:Dyslipidemia, goal LDL below 100 TAKE 1 TABLET BY MOUTH EVERY DAY 90 Tablet 3 02/27/2023 Active Dulaglutide 1.5 MG/0.5ML Subcutaneous Solution Pen-injector (Trulicity) Inject 1.5 mg under the skin once a week. 2 mL 2 04/12/2023 Active Cyclobenzaprine HCl 10 MG Oral Tablet (Flexeril)Indicatio ns:Chronic bilateral low back pain without sciatica TAKE 1 TABLET BY MOUTH EVERYDAY AT BEDTIME 30 Tablet 0 05/16/2023 Active Tolterodine Tartrate ER 4 MG Oral Capsule Extended Release 24 Hour (Detrol LA) TAKE 1 CAPSULE BY MOUTH EVERY DAY 90 Capsule 1 05/16/2023 Active Ozempic (1 MG/DOSE) 4 MG/3ML Subcutaneous Solution Pen-injector (Semaglutide (1 MG/DOSE))Indication s:Type 2 diabetes mellitus with hemoglobin A1c goal of less than 7.0% ([facility]) Inject 1 mg under the skin once a week. 9 mL 1 05/18/2023 Active Pantoprazole Sodium 40 MG Oral Tablet Delayed Release (Protonix)Indicatio ns:Gastroesophageal reflux disease without esophagitis TAKE 1 TABLET BY MOUTH DAILY 30 MINUTES BEFORE FIRST MEAL OF DAY. DO NOT CRUSH, SPLIT OR CHEW. 90 Tablet 1 07/06/2023 Active Pantoprazole Sodium 40 MG Oral Tablet Delayed Release (Protonix)Indicatio ns:Gastroesophageal reflux disease without esophagitis TAKE 1 TABLET BY MOUTH DAILY 30 MINUTES BEFORE FIRST MEAL OF DAY. DO NOT CRUSH, SPLIT OR CHEW. 90 Tablet 1 01/02/2023 07/06/20 23 Discontinued documented as of this encounter (statuses as of 07/06/2023) Active Problems Problem Noted Date Diagnosed Date [...] as of this encounter (statuses as of 07/06/2023) Resolved Problems Problem Noted Date Diagnosed Date Resolved Date Encounter for examination fo r normal comparison and control in clinical research program 09/13/2012 12/19/2012 Overview: Diagnosis changed due to Research Module. Go to Snapshot for study details. Lateral epicondylitis 08/09/20012011 Overview: right lateral epicondylitis started throwing candy out a window during a parade. Starting PT at [facility] Lateral epicondylitis 2010 GENERALIZED ANXIETY DIS 03/10 documented as of this encounter (statuses as of 07/06/2023) Immunizations Name Administration Dates Next Due COVID-19 [...] encounter Miscellaneous Notes * Telephone Encounter - Vandana Pride, [facility] - 07/06/2023 1:52 PM ESTSigned Prescriptions: Disp Refills Pantoprazole Sodium 40 MG Oral Tablet Kaylynn*90 Tab*1 Sig: TAKE 1 TABLET BY MOUTH DAILY 30 MINUTES BEFORE FIRST MEAL OF DAY. DO NOT CRUSH, SPLIT OR CHEW.Authorizing Provider: Yesenia VERA User: VANDANA PRIDE * Telephone Encounter - Vandana Pride RPh - 07/06/2023 1:51 PM EST Per refill protocol patient needs magnesium and vitamin B-12 labs on file within the past 2 years while using PPIs. Lab work previously ordered. Patient may obtain with next routine labs. Thanks, Vandana Pride, PharmD Clinical Pharmacist [facility] ([facility]) [phone] 07/06/2023 1:52 PM documented in this encounter Plan of Treatment Upcoming Encounters Date Type Department Care Team (Late st Contact Info) Description 08/02/2023 9:40 AM EST Office Visit Family Medicine [address] [place] [phone] Rolf Vera MD [address] [place] [address] [place] [address] 05/07/2024 10:00 AM EDT Imaging Radiology [address] [place] [address] Scheduled Procedures Name Priority Associated Diagnoses Date/Ti me COLONOSCOPY FLEXIBLE PROXIMA L DIAGNOSTIC Recall Encounter for screening colonoscopy Health Maintenance Due Date Last Done Comments DISCUSS TOBACCO CESSATION (REFER TO SMARTSET #1717) 1960 Pneumococcal Vaccine: Pediatrics (0 to 5 [...] 11/20/2007 LUNG CANCER SCREENING - USE SMARTSET 19321 Completed 01/11/2023, 12/15/2020 GARDASIL-HPV IMMUNIZATION SERIES Aged Out No longer eligible based on patient's age to complete this topic MENINGOCOCCAL (MENACTRA/MENVEO) Aged Out No longer eligible based on patient's age to complete this topic documented as of this encounter Medical Devices Implanted Type Area Rigger Supervisor Device Identifier Shelf Expiration Date Model / Serial / Lot Lens Intraoc 18.5 - [id number] - [id number] Implanted:Qty: 1 on 01/10/2022 by Chris Umana MD at [facility] Left: Eye BAUSCH & LOMB 08/08/2026 [id number] / [id number] / [id number] Lens Intraoc 18.5 - [id number] - [id number] Implanted:Qty: 1 on 01/24/2022 by Chris Umana MD at [facility] Right: Eye BAUSCH & LOMB 10/06/2026 [id number] / [id number] / [id number] documented as of this encounter Visit Diagnoses Diagnosis Gastroesophageal reflux disease without esophagitis Esophageal reflux documented in this encounter Care Teams Apartment Locator Relationship Specialty Start Date End Date Rolf Vera MD [address] [place] [address] [place] [id number] PCP - General Family Medicine 08/27/19 documented as of this encounter
--- OUTSIDE RECORDS SUMMARY | 2023-08-23 08:20 | External Medical Summary | Summary of Care ---
Author Name Unknown Organization [facility] Address [address] [facility] [address] Phone [phone] Care Team Providers Care Analyst Sales Name Role Phone Rolf Vera MD Primary Care Provide r Reason for Visit * Reason Comments eRx-Medication Refill Encounter Details Date Type Department Care Team Description 02/26/2023 Refill Family Medicine [address] [address] Rolf Vera MD [address] [place] [address] [place] [address] HTN, goal below 130/80; Diabetes mellitus without complication (HCC); Dyslipidemia, goal LDL below 100 Allergies No known active allergiesdocumented as of this encounter (statuses as of 02/27/2023) Medications Medication Sig Dispensed Refills Start Date [...] EVERY DAY 90 Tablet 3 02/27/2023 Active Atorvastatin Calcium 20 MG Oral Tablet (Lipitor)Indication s:Dyslipidemia, goal LDL below 100 TAKE 1 TABLET BY MOUTH EVERY DAY 90 Tablet 0 11/28/2022 02/28/20 23 Discontinued Losartan Potassium 25 MG Oral Tablet (Cozaar)Indications :HTN, goal below 130/80 TAKE 1 TABLET BY MOUTH EVERY DAY 90 Tablet 0 11/28/2022 02/28/20 23 Discontinued metFORMIN HCl ER 500 MG Oral Tablet Extended Release 24 Hour (Glucophage XR)Indications:Diab etes mellitus without complication (HCC) TAKE 4 TABLETS BY MOUTH EVERY DAY 360 Tablet 0 11/28/2022 02/28/20 23 Discontinued documented as of this encounter (statuses as of 02/27/2023) Active Problems Problem Noted Date Centrilobular emphysema [...] as of this encounter (statuses as of 02/27/2023) Resolved Problems Problem Noted Date Resolved Date Encounter for examination fo r normal comparison and control in clinical research program 09/13/2012 12/19/2012 Overview: Diagnosis changed due to Research Module. Go to Snapshot for study details. Lateral epicondylitis 08/09/2001 04/02/2012 Overview: right lateral epicondylitis started throwing candy out a window during a parade. Starting PT at [facility] Lateral epicondylitis 04/27/2011 GENERALIZED ANXIETY DIS 04/02/20 12 documented as of this encounter (statuses as of 02/27/2023) Immunizations Name Administration Dates Next Due COVID-19 [...] encounter Miscellaneous Notes * Telephone Encounter - Sola Kay [facility] - 02/27/2023 8:17 AM EDTSigned Prescriptions: Disp Refills Losartan Potassium 25 MG Oral Tablet (Coza*90 Tab*3 Sig: TAKE 1 TABLET BY MOUTH EVERY DAYAuthorizing Provider: Yesenia VERA User: SOLA KAY metFORMIN HCl ER 500 MG Oral Tablet Extend*360 Ta*3 Sig: TAKE 4 TABLETS BY MOUTH EVERY DAYAuthorizing Provider: Yesenia VERA User: SOLA KAY Atorvastatin Calcium 20MG Oral Tablet (Li*90 Tab*3 Sig: TAKE 1 TABLET BY MOUTH EVERY DAYAuthorizing Provider: ROLF VERAOrdering User: SOLA KAY documented in this encounter Plan of Treatment Upcoming Encounters Date Type Specialty Care Team Description 04/26/2023 Imaging Radiology 08/02/2023 Office Visit Family Medicine Rolf Vera MD [address] [place] [address] [place] [address] Scheduled Procedures Name Priority Associated Diagnoses Date/Ti me COLONOSCOPY FLEXIBLE PROXIMA L DIAGNOSTIC Recall Encounter for screening colonoscopy Health Maintenance Due Date Last Done Comments DISCUSS TOBACCO CESSATION (REFER TO SMARTSET #2580) 1960 Pneumococcal Vaccine: Pediatrics (0 to 5 [...] 11/20/2007 LUNG CANCER SCREENING - USE SMARTSET 33425 Completed 01/11/2023, 12/15/2020 GARDASIL-HPV IMMUNIZATION SERIES Aged Out No longer eligible based on patient's age to complete this topic Hepatitis B Aged Out No longer eligi ble based on patient's age to complete this topic MENINGOCOCCAL (MENACTRA/MENVEO) Aged Out No longer eligible based on patient's age to complete this topic documented as of this encounter Medical Devices Implanted Type Area Car Lot Attendant Device Identifier Shelf Expiration Date Model / Serial / Lot Lens Intraoc 18.5 - [id number] - [id number] Implanted:Qty: 1 on 01/10/2022 by Chris Umana MD at [facility] Left: Eye BAUSCH & LOMB 08/08/2026 [id number] / [id number] / [id number] Lens Intraoc 18.5 - [id number] - [id number] Implanted:Qty: 1 on 01/24/2022 by Chris Umana MD at [facility] Right: Eye BAUSCH & LOMB 10/06/2026 [id number] / [id number] / [id number] documented as of this encounter Visit Diagnoses Diagnosis HTN, goal below 130/80 Unspecified essential hypertension Diabetes mellitus without complication (HCC) Type II or unspecified type diabetes mellitus without mention of complication, not stated as uncontrolled Dyslipidemia, goal LDL below 100 Other and unspecified hyperlipidemia documented in this encounter Care Teams Analyst Sales Relationship Specialty Start Date End Date Rolf Vera MD [address] [place] [address] [place] [address] PCP - General Family Medicine 08/27/19 documented as of this encounter
--- OUTSIDE RECORDS SUMMARY | 2023-08-23 08:20 | External Medical Summary | Summary of Care ---
Author Name Unknown Organization [facility] Address [address] [address] Phone [phone] Care Team Providers Care Rn Supplemental Name Role Phone Rolf Vera MD Primary Care Provide r Reason for Visit * Reason Comments eRx-Medication Refill Encounter Details Date Type Department Care Team (Late st Contact Info) Description 05/15/2023 Refill Family Medicine [address] [phone] Rolf Vera MD [address] [place] [address] [place] [address] Chronic bilateral low back pain without sciatica Allergies No known active allergiesdocumented as of this encounter (statuses as of 05/16/2023) Medications Medication Sig Dispensed Refills Start Date [...] EVERY DAY 90 Capsule 1 05/16/2023 Active Cyclobenzaprine HCl 10 MG Oral Tablet (Flexeril)Indicatio ns:Chronic bilateral low back pain without sciatica TAKE 1 TABLET BY MOUTH EVERYDAY AT BEDTIME 30 Tablet 0 07/17/2022 05/16/20 23 Discontinued Tolterodine Tartrate ER 4 MG Oral Capsule Extended Release 24 Hour (Detrol LA) TAKE 1 CAPSULE BY MOUTH EVERY DAY 90 Capsule 1 11/29/2022 05/16/20 23 Discontinued documented as of this encounter (statuses as of 05/16/2023) Active Problems Problem Noted Date Diagnosed Date [...] as of this encounter (statuses as of 05/16/2023) Resolved Problems Problem Noted Date Diagnosed Date [...] as of this encounter (statuses as of 05/16/2023) Immunizations Name Administration Dates Next Due COVID-19 [...] encounter Miscellaneous Notes * Telephone Encounter - Aguilar Suarez MD - 05/16/2023 1:56 PM ESTSigned Prescriptions: Disp Refills Cyclobenzaprine HCl 10 MG Oral Tablet (Fle*30 Tab*0 Sig: TAKE 1 TABLET BY MOUTH EVERYDAY AT BEDTIME Authorizing Provider: AGUILAR SUAREZ Tolterodine Tartrate ER 4 MG Oral Capsule *90 Cap*1 Sig: TAKE 1 CAPSULE BY MOUTH EVERY DAY Authorizing Provider: AGUILAR SUAREZ < BR> * Telephone Encounter - Venita Goncalves [facility] - 05/16/2023 1:38 PM ESTPending Prescriptions: Disp Refills Cyclobenzaprine HCl 10 MG Oral Tablet [Pha*30 Tab*0 Sig: TAKE 1 TABLET BY MOUTH EVERYDAY AT BEDTIME Tolterodine Tartrate ER 4 MG Oral Capsule *90 Cap*1 Sig: TAKE 1 CAPSULE BY MOUTH EVERY DAY * Telephone Encounter - Venita Goncalves [facility] - 05/16/2023 1:38 PM EST Did you pend patient's preferred pharmacy and medication before forwarding?yes Pharmacy: [id number] Pending Prescriptions: Disp Refills Cyclobenzaprine HCl 10 MG Oral Tablet (Fl*30 Tab*0 Sig: TAKE 1 TABLET BY MOUTH EVERYDAY AT BEDTIME Tolterodine Tartrate ER 4 MG Oral Capsule*90 Cap*1 Sig: TAKE 1 CAPSULE BY MOUTH EVERY DAY Last Visit: 01/30/2023 (in office), Visit date not found (telemedicine) Next Visit: 08/02/2023 If no future appointments scheduled, and last appointment is greater than a year ago, please schedule patient for a follow-up appointment Last date the medication was ordered: 07/17/22, 11/29/22 Is this request for a controlled substance?No [...] 9:40 AM EST Office Visit Family Medicine [address] [place] [phone] Rolf Vera MD [address] [place] [address] [place] [address] 05/07/2024 10:00 AM EDT Imaging Radiology [address] [place] [id number] Scheduled Procedures Name Priority Associated Diagnoses Date/Ti me COLONOSCOPY FLEXIBLE PROXIMA L DIAGNOSTIC Recall Encounter for screening colonoscopy Health Maintenance Due Date Last Done Comments DISCUSS TOBACCO CESSATION (REFER TO SMARTSET #3472) 1960 Pneumococcal Vaccine: Pediatrics (0 to 5 [...] VERIFIED BY PFT 02/02/2023 COVID-19 Vaccine ( - season) 2023 11/20/2020, 10/30/2020 Influenza Vaccine (FLU shot) (#1) 2023 03/24/2020, 03/10/2019, 10/08/2017 (Refused), Additional history exists Diabetic Foot Exam 08/03/2023 08/03/2022, 0 07/27/2021, 09/30/2020, Additional history exists HbA1c 08/06/2023 02/03/2023, 07/10, 01/28/2022, Additional history exists Diabetic Eye Exam 11/10/2023 11/09/2022, , 09/21/2021, Additional history exists O2 ASSESSMENT COMPLETED IN PAST YEAR FOR COPD 01/31/2024 01/30/2023 Albumin/Creatinine Ratio 02/04/2024 023, 08/05/2022, 08/06/2021, Additional history exists GFR 02/04/2024 02/03/2023, 07/10, 04/22/2022, Additional history exists Mammogram 04/26/2024 04/26/2023, 04/08, 04/18/2021, Additional history exists Colonoscopy 01/30/2028 01/29/2018, 01/29/2018 Colorectal Cancer Screening 01/30/2028 Lipid Panel 02/04/2028 02/03/2023, 07/10, 10/02/2020, Additional history exists DTaP,Tdap,and Td Vaccines (3 - Td or Tdap) 10/08/2028 10/08/2018, 11/20/2007 LUNG CANCER SCREENING - USE SMARTSET 25920 Completed 01/11/2023, 12/15/2020 GARDASIL-HPV IMMUNIZATION SERIES Aged Out No longer eligible based on patient's age to complete this topic MENINGOCOCCAL (MENACTRA/MENVEO) Aged Out No longer eligible based on patient's age to complete this topic documented as of this encounter Medical Devices Implanted Type Area Yarn Worker Device Identifier Shelf Expiration Date Model / Serial / Lot Lens Intraoc 18.5 - [id number] - [id number] Implanted:Qty: 1 on 01/10/2022 by Chris Umana MD at OR [facility] Left: Eye [employer]OM[employer] 08/08/2026 [id number] / [id number] / [id number] Lens Intraoc 18.5 - [id number] - [id number] Implanted:Qty: 1 on 01/24/2022 by Chris Umana MD at OR [facility] Right: Eye [employer]OM[employer] 10/06/2026 [id number] / [id number] / [id number] documented as of this encounter Visit Diagnoses Diagnosis Chronic bilateral low back pain without sciatica documented in this encounter Care Teams Rn Supplemental Relationship Specialty Start Date End Date Rolf Vera MD [address] [place] [address] [place] [id number] PCP - General Family Medicine 08/27/19 documented as of this encounter
--- OUTSIDE RECORDS SUMMARY | 2023-08-23 08:20 | External Medical Summary | Summary of Care ---
Author Name Unknown Organization [facility] Address [address] [facility] [place] [address] Phone [phone] Care Team Providers Care Rural Route Carrier Name Role Phone Rolf Vera MD Primary Care Provide r Encounter Details Date Type Department Care Team (Late st Contact Info) Description 05/18/2023 Orders Only Family Medicine [address] [place] [phone] Rolf Vera MD [address] [place] [address] [place] [address] Allergies No known active allergiesdocumented as [...] hemoglobin A1c goal of less than 7.0% ([facility]) Use as directed . Check fasting glucose [...] EVERY DAY 90 Capsule 1 05/16/2023 Active documented as of this encounter (statuses [...] 9:40 AM EST Office Visit Family Medicine [address] [place] [phone] Rolf Vera MD [address] [place] [address] [place] [address] 05/07/2024 10:00 AM EDT Imaging Radiology [address] [place] [id number] Scheduled Procedures Name Priority Associated Diagnoses Date/Ti me COLONOSCOPY FLEXIBLE PROXIMA L DIAGNOSTIC Recall Encounter for screening colonoscopy Health Maintenance Due Date Last Done Comments DISCUSS TOBACCO CESSATION (REFER TO SMARTSET #1164) 1960 Pneumococcal Vaccine: Pediatrics (0 to 5 [...] 04/18/2021, Additional history exists Diabetic Eye Exam 05/18/2024 05/17/2023, , 06/07/2022, Additional history exists Colonoscopy 01/30/2028 01/29/2018, 01/29/2018 Colorectal Cancer Screening 01/30/2028 Lipid Panel 02/04/2028 02/03/2023, 07/10, 10/02/2020, Additional history exists DTaP,Tdap,and Td Vaccines (3 - Td or Tdap) 10/08/2028 10/08/2018, 11/20/2007 LUNG CANCER SCREENING - USE SMARTSET [id number] Completed 01/11/2023, 12/15/2020 GARDASIL-HPV IMMUNIZATION SERIES Aged Out No longer eligible based on patient's age to complete this topic MENINGOCOCCAL (MENACTRA/MENVEO) Aged Out No longer eligible based on patient's age to complete this topic documented as of this encounter Medical Devices Implanted Type Area Crab Steamer Device Identifier Shelf Expiration Date Model / Serial / Lot Lens Intraoc 18.5 - [id number] - [id number] Implanted:Qty: 1 on 01/10/2022 by Chris Umana MD at OR [facility] Left: Eye [employer]OM[employer] 08/08/2026 [id number] / [id number] / [id number] Lens Intraoc 18.5 - [id number] - [id number] Implanted:Qty: 1 on 01/24/2022 by Chris Umana MD at OR [facility] Right: Eye [employer]OMB 10/06/2026 [id number] / [id number] / [id number] documented as of this encounter Procedures Procedure Name Priority Date/Time Associated Diagnosis Comments DIABETIC EYE EXAM Routine 05/17/2023 documented in this encounter Results * DIABETIC EYE EXAM (05/17/2023) 05/17/2023 History Per Patient OTHER OUTSIDE LAB (SEE SCANNED REPORT) documented in this encounter Care Teams Rural Route Carrier Relationship Specialty Start Date End Date Rolf Vera MD [address] [place] [address] [place] [address] PCP - General Family Medicine 08/27/19 documented as of this encounter
--- OUTSIDE RECORDS SUMMARY | 2023-08-23 08:20 | External Medical Summary | Summary of Care ---
Author Name Unknown Organization [facility] Address [address] [facility] [facility] [address] Phone [phone] Care Team Providers Care Top Closer Name Role Phone Rolf Vera MD Primary Care Provide r Reason for Visit * Reason Comments Re-Check Encounter Details Date Type Department Care Team (Late st Contact Info) Description 08/02/2023 9:40 AM EST Office Visit Family Medicine [address] [phone] Rolf Vera MD [address] [place] [address] [place] [address] Type 2 diabetes mellitus with hemoglobin A1c goal of less than 7.0% ([facility])*; DM type 2 nursing care encounter ([facility]); Centrilobular emphysema (HCC); HTN, goal below 130/80; Dyslipidemia, goal LDL below 100; Abnormal TSH Allergies No known active allergiesdocumented as of this encounter (statuses as of 08/02/2023) Medications Medication Sig Dispensed Refills Start Date [...] A1c goal of less than 7.0% ([facility]) Use as directed . Check fasting [...] a week. 9 mL 1 08/02/2023 Active Dulaglutide 1.5 MG/0.5ML Subcutaneous Solution Pen-injector (Trulicity) Inject 1.5 mg under the skin once a week. 2 mL 2 04/12/2023 4 Discontinue d(Medicatio n List Clean Up) Ozempic (1 MG/DOSE) 4 MG/3ML Subcutaneous Solution Pen-injector (Semaglutide (1 MG/DOSE))Indications :Type 2 diabetes mellitus with hemoglobin A1c goal of less than 7.0% (HCC) Inject 1 mg under the skin once a week. 9 mL 1 05/18/2023 4 Discontinue d(Refill) documented as of this encounter (statuses as of 08/02/2023) Active Problems Problem Noted Date Diagnosed Date [...] as of this encounter (statuses as of 08/02/2023) Resolved Problems Problem Noted Date Diagnosed Date [...] as of this encounter (statuses as of 08/02/2023) Immunizations Name Administration Dates Next Due COVID-19 [...] 1 42 Started: 1974 Smokeless Tobacco: Never Tobacco Cessation:Ready to Q uit: Not Asked; Counseling Given: Not Answered Comments:started age 16, restarted 01/2009 Alcohol Use Standard Drinks/Week Comments No [...] on file documented as of this encounter Last Filed Vital Signs Vital Sign Reading Time Taken Comments Blood Pressure 150/80 08/02/2023 9:36 AM EST Pulse 106 08/02/2023 9:33 AM EST Temperature 36 C (96.8 F) 08/02/2023 9:33 AM EST Respiratory Rate 16 08/02/2023 9:33 AM EST Oxygen Saturation - - Inhaled Oxygen Concentration - - Weight 72.3 kg (159 lb 6 oz) 08/02/2023 9:33 AM EST Height - - Body Mass Index 26.52 01/30/2023 9:34 AM EDT documented in this encounter Patient Instructions * Patient Instructions* Sriia Fernando LPN - 08/02/2023 9:33 AM EST Diabetes: Keeping Feet Healthy Inspect your feet every day for signs of a problem. Diabetes can damage nerves in your feet and cause neuropathy. This condition makes it hard for you to feel injuries or sore spots. Diabetes can also change blood flow, making it harder for small problems, like a blister, to heal properly. In fact, minor injuries can quickly become serious infections that send you to the hospital. Practice self-care to protect your feet and keep them healthy. Take Special Care Inspect your feet daily for problems such as redness, blisters, cracks, dry skin, or numbness. Use a mirror to see the bottoms of your feet. Or, ask for help. Manage your diabetes. Monitor and control your blood sugar. Take all your medications as prescribed. Avoid walking barefoot, even indoors. Wash your feet with warm water and mild soap. Dry well, especially between toes. Dont treat corns or calluses yourself. Talk to your doctor or information technology architect (a doctor who specializes in foot care) if you need assistance trimming your toenails. Use moisturizing cream or lotion if you have dry skin, but dont use it between toes. Dont use heating pads on your feet. If you have neuropathy, you could get a burn and not feel it. Stop smoking. Smoking restricts blood flow and can make it harder for wounds to heal. Have Regular Checkups Foot problems can develop quickly. So be sure to follow your healthcare teams schedule for regular checkups. During office visits, take off your shoes and socks as soon as you get in the exam room. Ask your healthcare provider to examine your feet for problems. This will make it easier to find and treat small skin irritations before they get worse. Regular checkups can also help keep track of the blood flow and feeling in your feet. If you have neuropathy, you may need to have checkups more often. Wear Proper Footwear Wearing proper footwear is very important. If areas of your feet have been damaged by too much pressure, your healthcare provider may recommend changing your footwear. In some cases, avoiding high heels or tight work boots may be all thats needed. Or, your healthcare provider may recommend special shoes or custom inserts. These help protect your feet and keep existing irritations from getting worse. If you need special footwear, ask your healthcare provider if you qualify for [employer] diabetic shoe program. Make Sure Shoes and Socks Fit Any pair of shoes--new or old--should feel comfortable as soon as you put them on. There shouldnt be any rubbing when you walk. Wear the right shoe for any activity. For instance, a running shoe is designed to keep your feet injury-free while jogging. Buy shoes at the end of the day, when your feet are larger. Make sure they provide support without feeling too loose. Make sure your socks fit, t oo. Wear soft, seamless, well-padded socks for activity. Cotton or microfiber socks are best to help to absorb sweat. To protect your feet, avoid shoes that are open-toed or open-heeled. If you have questions about what kinds of shoes and socks are best, talk to your healthcare team. Get Regular Exercise Regular exercise improves blood flow in your feet. It also increases foot strength and flexibility.Gentle exercises, like walking or riding a stationary bicycle, are best. You can also do special foot exercises. Just be sure to talk with your healthcare provider before starting any exercise program. Also mention if any exercise causes pain, redness, or other signs of foot problems. Note: If you have any kind of break in the skin of your foot or ankle, keep the area clean. Then call your doctor--especially if the area doesnt appear to be healing. [id number] [employer], [address] [place] [address], [place] [address]. All rights reserved. This information is not intended as a substitute for professional medical care. Always follow your healthcare professional's instructions. documented in this encounter Progress Notes * Sellathurai, Thiviyanath, MD - 08/02/2023 9:38 AM EST Subjective: HPI: Mireya Mcqueen is a 63 year old female with hx of HTN, DMII, stress Urinary incontinence, HLD, lung nodule, hx of hysterectomy and BSO, Emphysema seen for DMII: - On metformin ER 2000mg daily, Ozempic 1 mg weekly - complaint with med HTN: - Losartan 25mg daily - compliantt with med Abnormal TSH: - hair loss (mild) - denied any constipation Patient Active Problem List Diagnosis Code ADVANCE DIRECTIVE INFORMATION Lumbago M54.50 Need for prophylactic hormone replacement therapy (postmenopausal) Z79.890 Menopause Z78.0 Female stress incontinence N39.3 Tobacco abuse disorder Z72.0 Diabetes mellitus without complication (HCC) E11.9 Type 2 diabetes mellitus with hemoglobin A1c goal of less than 7.0% (HCC) E11.9 HTN, goal below 130/80 I10 History of hysterectomy Z90.710 Centrilobular emphysema (HCC) J43.2 Current Outpatient Medications Medication Sig Dispense Refill MULTIVITAMIN/IRON PO TABS Take by mouth at bedtime . 100 3 ZINC 10 MG MT LOZG Apply to the mouth or throat at bedtime . Acetaminophen 500 MG Oral Tablet (Tylenol) Take 2 Tablets by mouth every 6 hours as needed. Aspirin 325 MG Oral Tablet (Cleopatra Aspirin) Take 2 Tablets by mouth every 6 hours as needed. Ibuprofen 200 MG Oral Capsule Take 2 Capsules by mouth every 6 hours as needed. Losartan Potassium 25 MG Oral Tablet (Cozaar) TAKE 1 TABLET BY MOUTH EVERY DAY 90 Tablet 3 metFORMIN HCl ER 500 MG Oral Tablet Extended Release 24 Hour (Glucophage XR) TAKE 4 TABLETS BY MOUTH EVERY DAY 360 Tablet 3 Atorvastatin Calcium 20 MG Oral Tablet (Lipitor) TAKE 1 TABLET BY MOUTH EVERY DAY 90 Tablet 3 Cyclobenzaprine HCl 10 MG Oral Tablet (Flexeril) TAKE 1 TABLET BY MOUTH EVERYDAY AT BEDTIME 30 Tablet 0 Tolterodine Tartrate ER 4 MG Oral Capsule Extended Release 24 Hour (Detrol LA) TAKE 1 CAPSULE BY MOUTH EVERY DAY 90 Capsule 1 Pantoprazole Sodium 40 MG Oral Tablet Delayed Release (Protonix) TAKE 1 TABLET BY MOUTH DAILY 30 MINUTES BEFORE FIRST MEAL OF DAY. DO NOT CRUSH, SPLIT OR CHEW. 90 Tablet 1 Ozempic (1 MG/DOSE) 4 MG/3ML Subcutaneous Solution Pen-injector (Semaglutide (1 MG/DOSE)) Inject 1 mg under the skin once a week. 9 mL 1 Turmeric 500 MG Oral Capsule Take 1,000 mg by mouth daily. Diclofenac Sodium 1 % External Gel (Voltaren) PLACE 2 G TOPICALLY ON THE SKIN 2 TIMES A DAY AREA ASDIRECTED. 100 g 1 True Metrix Go Glucose Meter w/Device Kit Use as directed . Check fasting glucose 1-2x/week 1 Kit 0 ReliOn Lancets Micro-Thin 33G Use to test twice daily. E11.9 100 Each 1 No current facility-administered medications for this visit. Past Medical History: Diagnosis Date Closed fracture of carpal bone 12/16/09 right wrist Female stress incontinence Generalized anxiety disorder 2000 Lateral epicondylitis 08/09/01 right lateral epicondylitis started throwing candy out a window during a parade. Starting PT at [facility] Need for hepatitis C screening test 03/20/14 Hepatitis C negative Need for prophylactic hormone replacement therapy (postmenopausal) Rectal polyp 01/29/2018 Symptomatic menopausal or female climacteric states Tobacco abuse disorder Past Surgical History: Procedure Laterality Date ABD/PELVIS CT W/ + W/O IV AND W/PO CONTRAST 08/16/2007 hysterectomy, otherwise normal DELIVERY Delivery Only COLONOSCOPY W/ LESION REMOVAL, SNARE 01/29/2018 3 mm rectal polyp COLONOSCOPY, DIAGNOSTIC (RECTUM) 01/29/2018 hyperplastic polyp, diverticulosis, repeat 10 yrs/COLONOSCOPY FLEXIBLE PROXIMAL DIAGNOSTIC performed by Mary Jo Suazo MD at ENDOSCOPY [facility] CYSTOSCOPY 09/27/2011 coapetite injection HC BREAST VALE SCREEN BILATERAL Bilateral 04/26/2023 scattered fibroglandular densities, category 1 repeat 1 year LIGATE/CUT OVIDUCT(S) MAMMOGRAM SCREENING BILATERAL Bilateral 03/27/2016 scattered fibroglandular densities, Category 1 normal MAMMOGRAM SCREENING BILATERAL Bilateral 04/02/2017 fibroglandular densities, category 1 normal MAMMOGRAM SCREENING BILATERAL Bilateral 04/03/2018 scattered fibroglandular densities, stable nodule on right BI-RAD 2 stable MAMMOGRAM SCREENING-BILATERAL 02/18/2010 cat. 1, repeat in 12mths REMOVE CATARACT, INSERT LENS PROSTH Left 01/10/2022 LEFT EXTRACAPSULAR CATARACT REMOVAL WITH INTRAOCULAR LENS performed by Chris Umana MD at OR [facility] REMOVE CATARACT, INSERT LENS PROSTH Right 01/24/2022 RIGHT EXTRACAPSULAR CATARACT REMOVAL WITH INTRAOCULAR LENS performed by Chris Umana MD at OR [facility] US PELVIS TRANS-ABDOMINAL 01/03/2007 normal VAGINAL HYSTERECTOMY, W/TUBE/OVARY 07/15/2007 vag hyst/BSO/Malin, cystotomy repair - Stuck Review of patient's allergies indicates: No Known Allergies Family History Problem Relation Age of Onset Diabetes Mother Heart Disorder Father Breast Cancer Aunt (Maternal) Social History Tobacco Use Smoking status: Every Day Packs/day: 1.00 Years: 42.00 Additional pack years: 0.00 Total pack years: 42.00 Types: Cigarettes Start date: 1974 Smokeless tobacco: Never Tobacco comments: started age 16, restarted 01/2009 Substance Use Topics Alcohol use: No Vaping/E-Cigarette Use Vaping/E-Cigarette Substances Vaping/E-Cigarette Devices ROS: -Per HPI OBJECTIVE: BP 150/80 (BP Site: Right Arm) | Pulse 106 | Temp 36 C (96.8 F) (Tympanic) | Resp 16 | Wt 72.3 kg (159 lb 6 oz) | LMP 06/15/2007 | BMI 26.52 kg/m | BSA 1.82 m PHYSICAL EXAM: Vitals are reviewed General:. NAD, well developed HEENT:. Normal Conjunctiva, EOMI Cardiac:. Normal S1, S2, no murmur Lungs:. CTA, no wheezing or crackles MSK:. Normal gait Psych:. AAOx3, normal affect ASSESSMENT/PLAN: BP is elevated but pt smoked before coming in - will do home BP check - MYG in 1 week with BP readings - RTC in 2 months Type 2 diabetes mellitus with hemoglobin A1c goal of less than 7.0% ([facility]) (Primary) - HEMOGLOBIN A1C; Future; Expected date: 08/02/2023 - ALBUMIN / CREATININE RATIO, URINE; Future; Expected date: 08/02/2023 - Ozempic (1 MG/DOSE) 4 MG/3ML Subcutaneous Solution Pen-injector (Semaglutide (1 MG/DOSE)); Inject1 mg under the skin once a week. - BASIC METABOLIC PANEL - ALBUMIN / CREATININE RATIO, URINE - HEMOGLOBIN A1C DM type 2 nursing care encounter ([facility]) - DIABETES FOOT EXAM Centrilobular emphysema ([facility]) - gets annual CT chest lung nodule HTN, goal below 130/80 - BASIC METABOLIC PANEL Dyslipidemia, goal LDL below 100 - LIPID PANEL WITHOUT DIRECT LDL Abnormal TSH - TSH WITH FREE T4 IF INDICATED Follow Up: Return in about 2 months (around 10/01/2023). Rolf Vera MD Family medicine, [place] [phone] * Siria Fernando LPN - 08/02/2023 9:32 AM EST Socks and Shoes Removed for Annual Diabetic Foot Screening RIGHT FOOT: No Reddened, Cracking, Or Open Areas Noted. RIGHT Dorsalis Pedis Pulse: Palpable RIGHT Posterior Tibial Pulse: Palpable RIGHT Monofilament:Patient reports feeling monofilament pressure on plantar surface of foot LEFT FOOT: No Reddened, Cracking or Open Areas Noted. LEFT Dorsalis Pedis Pulse: Palpable LEFT Posterior Tibial Pulse: Palpable LEFT Monofilament:Patient reports feeling monofilament pressure on plantar surface of foot Do you need diabetic shoes: No DM Foot Exam completed today. Provider aware. Siria Fernando LPN documented in this encounter Nursing Notes * Siria Fernando LPN - 08/02/2023 9:27 AM EST 6 month recheck documented in this encounter Plan of Treatment Upcoming Encounters Date Type Department Care Team (Late st Contact Info) Description 10/10/2023 9:00 AM EDT Office Visit Family Medicine [address] [place] [phone] Rolf Vera MD [address] [place] [address] [place] [address] 05/07/2024 10:00 AM EDT Imaging Radiology [address] [place] [address] Scheduled Orders Name Type Priority Associated Diagnoses Orde r Schedule HEMOGLOBIN A1C Lab Routine Type 2 diabetes mellitus with hemoglobin A1c goal of less than 7.0% (HCC) Expected: 08/02/2023 (Approximate), Expires: 08/01/2024 ALBUMIN / CREATININE RATIO, URINE Lab Routine Type 2 diabetes mellitus with hemoglobin A1c goal of less than 7.0% (HCC) Expected: 08/02/2023 (Approximate), Expires: 08/01/2024 BASIC METABOLIC PANEL Lab Routine Type 2 diabetes mellitus with hemoglobin A1c goal of less than 7.0% (HCC) HTN, goal below 130/80 Ordered: 08/02/2023 ALBUMIN / CREATININE RATIO, URINE Lab Routine Type 2 diabetes mellitus with hemoglobin A1c goal of less than 7.0% (HCC) Ordered: 08/02/2023 HEMOGLOBIN A1C Lab Routine Type 2 diabetes mellitus with hemoglobin A1c goal of less than 7.0% (HCC) Ordered: 08/02/2023 LIPID PANEL WITHOUT DIRECT LDL Lab Routine Dyslipidemia, goal LDL below 100 Ordered: 08/02/2023 TSH WITH FREE T4 IF INDICATED Lab Routine Abnormal TSH Ordered: 08/02/2023 Scheduled Procedures Name Priority Associated Diagnoses Date/Ti me COLONOSCOPY FLEXIBLE PROXIMA L DIAGNOSTIC Recall Encounter for screening colonoscopy Health Maintenance Due Date Last Done Comments DISCUSS TOBACCO CESSATION (REFER TO SMARTSET #[id number]) 1960 Pneumococcal Vaccine: Pediatrics (0 to 5 [...] 11/20/2007 LUNG CANCER SCREENING - USE SMARTSET [id number] Completed 01/11/2023, 12/15/2020 GARDASIL-HPV IMMUNIZATION SERIES Aged Out No longer eligible based on patient's age to complete this topic MENINGOCOCCAL (MENACTRA/MENVEO) Aged Out No longer eligible based on patient's age to complete this topic documented as of this encounter Medical Devices Implanted Type Area Blood Tester Device Identifier Shelf Expiration Date Model / Serial / Lot Lens Intraoc 18.5 - [id number] - [id number] Implanted:Qty: 1 on 01/10/2022 by Chris Umana MD at OR [facility] Left: Eye [employer] 08/08/2026 [id number] / [id number] / [id number] Lens Intraoc 18.5 - [id number] - [id number] Implanted:Qty: 1 on 01/24/2022 by Chris Umana MD at OR [facility] Right: Eye [employer] LOMB 10/06/2026 [id number] / [id number] / [id number] documented as of this encounter Visit Diagnoses Diagnosis Type 2 diabetes mellitus with hemoglobin A1c goal of less than 7.0% (HCC)- Primary DM type 2 nursing care encounter (HCC) Type II or unspecified type diabetes mellitus without mention of complication, not stated as uncontrolled Centrilobular emphysema (HCC) Other emphysema HTN, goal below 130/80 Unspecified essential hypertension Dyslipidemia, goal LDL below 100 Other and unspecified hyperlipidemia Abnormal TSH Other abnormal clinical finding documented in this encounter Care Teams Top Closer Relationship Specialty Start Date End Date Rolf Vera MD [address] [place] [address] [place] [address] PCP - General Family Medicine 08/27/19 documented as of this encounter"
--- OUTSIDE RECORDS SUMMARY | 2023-08-23 08:20 | External Medical Summary | Summary of Care ---
Author Name Unknown Organization [facility] Address [address] [facility] [place] [address] Phone [phone] Care Team Providers Care Fiscal Clerk Name Role Phone Rolf Vera MD Primary Care Provide r Reason for Visit * Reason Onset Date Comments Advice 08/21/2023 Encounter Details Date Type Department Care Team (Late st Contact Info) Description 08/21/2023 Telephone Family Medicine [address] [phone] Rolf Vera MD [address] [place] [address] [place] [address] Advice Allergies No known active allergiesdocumented as of this encounter (statuses as of 08/22/2023) Medications Medication Sig Dispensed Refills Start Date [...] every 6 hours as needed. 0 Active metFORMIN HCl ER 500 MG Oral [...] hemoglobin A1c goal of less than 7.0% ([facility]) Inject 1 mg under the skin once a week. 9 mL 1 08/02/2023 Active Losartan Potassium 50 MG Oral Tablet (Cozaar)Indications:H TN, goal below 130/80 Take 1 Tablet by mouth in the morning. 30 Tablet 3 08/10/2023 Active documented as of this encounter (statuses as of 08/22/2023) Active Problems Problem Noted Date Diagnosed Date [...] as of this encounter (statuses as of 08/22/2023) Resolved Problems Problem Noted Date Diagnosed Date Resolved Date Encounter for examination fo r normal comparison and control in clinical research program 09/13/2012 12/19/2012 Overview: Diagnosis changed due to Research Module. Go to Snapshot for study details. Lateral epicondylitis 08/09/20012011 Overview: right lateral epicondylitis started throwing candy out a window during a parade. Starting PT at [facility] Lateral epicondylitis 2010 GENERALIZED ANXIETY DIS 03/10 documented as of this encounter (statuses as of 08/22/2023) Immunizations Name Administration Dates Next Due COVID-19 mRNA, LNP-s, No Pre serve, 2-Dose Series ([employer]) 11/20/2020,10/30/2020 PPD 04/02/2012 Pneumococcal Polysaccharide PPV23 (Pneumovax) [...] encounter Miscellaneous Notes * Telephone Encounter - Rolf Vera MD - 08/22/2023 11:13 AM EST Spoke to the pt - pt is currently in the hospital for Afib with [facility] * Telephone Encounter - Carole Meeks RN - 08/21/2023 2:51 PM EST Do you want to adjust bp meds? Pt has an appt 10/10/23 * Telephone Encounter - Rhonda Gutierrez OSA - 08/21/2023 2:20 PM EST Pt calling in to request an appt with Dr. Vera because her bp was quite low today 110/87 this morning and she was experiencing dizziness/lightheadedness so her boss ended up bringing her home from work. No openings available Please contact patient to schedule at [phone] documented in this encounter Plan of Treatment Upcoming Encounters Date Type Department Care Team (Late st Contact Info) Description 10/10/2023 9:00 AM EDT Office Visit Family Medicine [address] [place] [phone] Rolf Vera MD [address] [place] [address] [place] [address] 05/07/2024 10:00 AM EDT Imaging Radiology [address] [place] [address] Scheduled Procedures Name Priority Associated Diagnoses Date/Ti me COLONOSCOPY FLEXIBLE PROXIMA L DIAGNOSTIC Recall Encounter for screening colonoscopy Health Maintenance Due Date Last Done Comments DISCUSS TOBACCO CESSATION (REFER TO SMARTSET #[id number]) 1960 Pneumococcal Vaccine: Pediatrics (0 to 5 [...] 03/24/2020, 03/10/2019, 10/08/2017 (Refused), Additional history exists O2 ASSESSMENT COMPLETED IN PAST YEAR FOR COPD 01/31/2024 01/30/2023 HbA1c 02/16/2024 08/18/2023, 01/07, 08/05/2022, Additional history exists Mammogram 04/26/2024 04/26/2023, 04/08, 04/18/2021, Additional history exists Diabetic Eye Exam 05/17/2024 05/17/2023, , 06/07/2022, Additional history exists Diabetic Foot Exam 08/02/2024 08/02/2023, 0 08/03/2022, 07/27/2021, Additional history exists Albumin/Creatinine Ratio 08/18/2024 024, 02/03/2023, 08/05/2022, Additional history exists GFR 08/18/2024 08/18/2023, 01/07, 08/05/2022, Additional history exists Colonoscopy 01/30/2028 01/29/2018, 01/29/2018 Colorectal Cancer Screening 01/30/2028 Lipid Panel 08/18/2028 08/18/2023, 01/07, 08/06/2021, Additional history exists DTaP,Tdap,and Td Vaccines (3 - Td or Tdap) 10/08/2028 10/08/2018, 11/20/2007 LUNG CANCER SCREENING - USE SMARTSET [id number] Completed 01/11/2023, 12/15/2020 GARDASIL-HPV IMMUNIZATION SERIES Aged Out No longer eligible based on patient's age to complete this topic MENINGOCOCCAL (MENACTRA/MENVEO) Aged Out No longer eligible based on patient's age to complete this topic documented as of this encounter Medical Devices Implanted Type Area Funds Development Director Device Identifier Shelf Expiration Date Model / Serial / Lot Lens Intraoc 18.5 - [id number] - [id number] Implanted:Qty: 1 on 01/10/2022 by Chris Umana MD at OR [facility] Left: Eye [employer] 08/08/2026 [id number] / [id number] / [id number] Lens Intraoc 18.5 - [id number] - [id number] Implanted:Qty: 1 on 01/24/2022 by Chris Umana MD at OR [facility] Right: Eye [employer]OM[employer] 10/06/2026 [id number] / [id number] / [id number] documented as of this encounter Care Teams Fiscal Clerk Relationship Specialty Start Date End Date Sellathurai, Thiviyanath, MD [address] [place] [address] [place] [address] PCP - General Family Medicine 08/27/19 documented as of this encounter
--- OUTSIDE RECORDS SUMMARY | 2023-08-23 08:20 | External Medical Summary | Summary of Care ---
Author Name Unknown Organization [facility] Address [address] [facility] [place] [address] Phone [phone] Care Team Providers Care Cco & President Name Role Phone Rolf Vera MD Primary Care Provide r Encounter Details Date Type Department Care Team (Late st Contact Info) Description 08/22/2023 Orders Only Family Medicine [address] [place] [address] Rolf Vera MD [address] [place] [address] [place] [address] Allergies No known active allergiesdocumented [...] hemoglobin A1c goal of less than 7.0% ([facility]) Use as directed . Check fasting [...] window during a parade. Starting PT at [facility] Lateral epicondylitis 2010 GENERALIZED ANXIETY [...] 9:00 AM EDT Office Visit Family Medicine [address] [place] [phone] Rolf Vera MD [address] [place] [address] [place] [address] 05/07/2024 10:00 AM EDT Imaging Radiology [address] [place] [address] Scheduled Procedures Name Priority Associated Diagnoses Date/Ti me COLONOSCOPY FLEXIBLE PROXIMA L DIAGNOSTIC Recall Encounter for screening colonoscopy Health Maintenance Due Date Last Done Comments DISCUSS TOBACCO CESSATION (REFER TO SMARTSET #[id number]) 1960 Pneumococcal Vaccine: Pediatrics (0 to 5 [...] 11/20/2007 LUNG CANCER SCREENING - USE SMARTSET [id number] Completed 01/11/2023, 12/15/2020 GARDASIL-HPV IMMUNIZATION SERIES Aged Out No longer eligible based on patient's age to complete this topic MENINGOCOCCAL (MENACTRA/MENVEO) Aged Out No longer eligible based on patient's age to complete this topic documented as of this encounter Medical Devices Implanted Type Area Bicycle I Assembler Device Identifier Shelf Expiration Date Model / Serial / Lot Lens Intraoc 18.5 - [id number] - [id number] Implanted:Qty: 1 on 01/10/2022 by Chris Umana MD at OR [facility] Left: Eye [employer]OM[employer] 08/08/2026 [id number] / [id number] / [id number] Lens Intraoc 18.5 - [id number] - [id number] Implanted:Qty: 1 on 01/24/2022 by Chris Umana MD at OR [facility] Right: Eye [employer]OM[employer] 10/06/2026 [id number] / [id number] / [id number] documented as of this encounter Procedures Procedure Name Priority Date/Time Associated Diagnosis Comments TSH WITH FREE T4 IF INDICATED Routine 08/18/2023 CHEMISTRY-OUTSIDE Routine 08/18/2023 documented in this encounter Results * (ABNORMAL) TSH WITH FREE T4 IF INDICATED (08/18/2023) TSH - OUTSIDE LAB 0.421(A) 0.450 - 4.500 UIU/ML OUTSIDE LAB (SEE SCANNED REPORT) T4, FREE - OUTSIDE LAB 1.42 0.82 - 1.77 NG/DL OUTSIDE LAB (SEE SCANNED REPORT) Blood Venous blood specimen / Unknown 08/18/2023 Rolf Vera MD LAB BLOOD ORD ERABLES OUTSIDE LAB (SEE SCANNED REPORT) * (ABNORMAL) CHEMISTRY-OUTSIDE (08/18/2023) Not all results display below - see scan for full detail OUTSIDE LAB (SEE SCANNED REPORT) Comment:SCAN INCLUDES - BMP, LIPID PANEL, HBA1C, TSH, FREE T4, ALB/CREAT RATIO UR CREATININE-OUTSID E LAB 0.73 0.57 - 1.00 MG/DL OUTSIDE LAB (SEE SCANNED REPORT) EGFR-OUTSIDE LAB 94 >59 ML/MIN/1.7 3M2 OUTSIDE LAB (SEE SCANNED REPORT) POTASSIUM-OUTSIDE LAB 4.7 3.5 - 5.2 MMOL/L OUTSIDE LAB (SEE SCANNED REPORT) GLUCOSE-OUTSIDE LAB 112(A) 70 - 99 MG/DL OUTSIDE LAB (SEE SCANNED REPORT) HOURS FASTING OUTSID E LAB (SEE SCANNED REPORT) TRIGLYCERIDES-OUT SIDE LAB 164(A) 0 - 149 MG/DL OUTSIDE LAB (SEE SCANNED REPORT) CHOLESTEROL-OUTSI DE LAB 159 100 - 199 MG/DL OUTSIDE LAB (SEE SCANNED REPORT) HDL-OUTSIDE LAB 47 >39 MG/DL OUTS JERRY LAB (SEE SCANNED REPORT) CHOL/HDL RATIO-OUTSIDE LAB OUTSIDE LA B (SEE SCANNED REPORT) LDL (CALCULATED)-OUTS JERRY LAB 84 0 - 99 MG/DL OUTSIDE LAB (SEE SCANNED REPORT) LDL (DIRECT MEASURE)-OUTSIDE LAB OUTSIDE LAB (SEE SCANNED REPORT) HEMOGLOBIN, [id number] LAB 6.6(A) 4.8 - 5.6 % OUTSIDE LAB (SEE SCANNED REPORT) PHOSPHORUS-OUTSID E LAB OUTSIDE LAB (SEE SCANNED REPORT) PTH-OUTSIDE LAB OUTS JERRY LAB (SEE SCANNED REPORT) MICROALBUMIN RATIO-OUTSIDE LAB <17 0 - 29 MG/G CREAT OUTSIDE LAB (SEE SCANNED REPORT) PROTEIN, UA-OUTSIDE LAB OUTSIDE LAB (SEE SCANNED REPORT) HEMOGLOBIN-OUTSID E LAB OUTSIDE LAB (SEE SCANNED REPORT) 08/18/2023 Rolf Vera MD LABORATORY OUTSIDE LAB (SEE SCANNED REPORT) documented in this encounter Care Teams Cco & President Relationship Specialty Start Date End Date Rolf Vera MD [address] [place] [address] [place] [address] PCP - General Family Medicine 08/27/19 documented as of this encounter
[2023-08-23] MEDS: ATORVASTATIN 20 MG TAB PO SCH (08:52)
[2023-08-23] MEDS: PANTOprazole 40 MG TAB PO SCH (08:53)
[2023-08-23] MEDS: OXYBUTYNIN CHLORIDE XL 5 MG TABCR PO SCH (08:53)
[2023-08-23] MEDS: METOPROLOL SUCC 50MG EXT REL TAB PO SCH (09:18)
--- NOTE | 2023-08-23 09:48 | Cardiology Consultation ---
Date of Consultation August 23, 2023 Assessment & Plan (1) Atrial fibrillation with rapid ventricular response: (2) Atrial fibrillation, new onset: (3) HTN (hypertension): (4) T2DM (type 2 diabetes mellitus): (5) Centrilobular emphysema: Plan 63-year-old female without prior specific cardiac disease presents now with symptoms of weakness and fatigue times several weeks with profound symptoms 2 days prior to hospitalization. Patient found to be in atrial fibrillation with rapid trickle response Begun on beta-carlos therapy and anticoagulation with IV heparin on admission Heart rate still elevated but patient asymptomatic. 1. New onset atrial fibrillation: Duration uncertain suspicious and discussion with the patient who agrees possibly extended duration. Will opt initially for rate control. 50 mg metoprolol succinate to be given this morning. Continue anticoagulation with IV heparin with plan to transition to Eliquis. [id number] VASc 2 score at least 3 Echocardiogram to be reviewed Could consider JEREMY cardioversion if rate unable to be reduced No findings to suggest ischemia or heart failure on exam, EKG or laboratory testing. Chest x-ray clear Discussed all findings and management in detail with patient. No additional testing ordered for today, diet advanced 2. COPD/emphysema: Tobacco cessation mandated for all aspects of care History of Present Illness Reason for Consultation: Newly observed atrial fibrillation Attending Physician: Richardson Farrell MD History of Present Illness Patient is a 63-year-old female without prior history of cardiac disease per patient but his underlying issues include 1. Chronic obstructive lung disease with emphysema 2. Chronic tobacco use 3. Hypertension 4. Type 2 diabetes mellitus Patient presents this admission noting having not felt well for an extended period of time. 2 days ago noted marked fatigue and shortness of breath while at work and took a ride home. Symptoms not improved and worsened the following day ultimately resulting in ER presentation Patient found to be in atrial fibrillation with elevated ventricular sponsor rate. Patient unaware of any tachypalpitations but elevated heart rate noted on last physical examination 08/02/2023 as outpatient Patient denies symptoms of chest pains. Denies syncope or near syncope but felt weak and fatigued for several days. No history rheumatic fever scarlet fever myocardial infarction angina or congestive heart failure in the past. No difficulties with edema. Has lost approximate 20 pounds with the use of Ozempic. Does continue to smoke 1 pack of cigarettes per day. No bleeding difficulties melena dysuria hematuria Allergies Allergy/AdvReac Type Severity Reaction Status Date / Time No Known Allergies Allergy Unknown Verified 07/13/07 23:14 Home Medications Medication Instructions Recorded Confirmed Type atorvastatin 20 mg tablet 20 mg PO DAILY 08/22/23 08/22/23 History losartan 50 mg tablet 50 mg PO DAILY 08/22/23 08/22/23 History metformin 500 mg tablet,extended 2,000 mg PO QPM 08/22/23 08/22/23 History release 24 hr pantoprazole 40 mg tablet,delayed 40 mg PO DAILY 08/22/23 08/22/23 History release semaglutide 1 mg/dose (4 mg/3 mL) 1 mg subcut MO 08/22/23 08/22/23 History subcutaneous pen injector (Ozempic) tolterodine 4 mg capsule,extended 4 mg PO DAILY 08/22/23 08/22/23 History release 24 hr zinc acetate 50 mg (zinc) capsule 50 mg PO DAILY 08/22/23 08/22/23 History Patient History Medical History Female stress incontinence Tobacco use Centrilobular emphysema T2DM (type 2 diabetes mellitus) HTN (hypertension) Surgical History Hx of cystoscopy Hx of bilateral cataract extraction Hx of tubal ligation Hx of hysterectomy Family History Mother Diabetes Social History Smoking Status: Current every day smoker Tobacco Type: Cigarettes Second Hand Exposure: No; Do You Dip or Chew Tobacco: No; Tobacco Cessation Education Requested by Patient: No Hx Alcohol Use: No Hx Substance Use: No Preferred Language: Taiwanese Communication Ability: Effective Clam Sorter Required: No Beliefs That Will Affect Care: None Current Living Situation: Spouse Other Information That Helps Us Care for You: No Feels Safe at Home: Yes Assistive Devices: None Review of Systems Review of Systems: All systems reviewed & are unremarkable except as noted in HPI & below Physical Exam Constitutional: + obese; no acute distress Eyes: PERRL, conjunctivae normal, anicteric sclerae ENMT: external ear and nose normal, oropharynx normal Neck: trachea midline, no thyromegaly Respiratory: normal respiratory effort, lungs clear to auscultation Cardiovascular: Rate/Rhythm: + tachycardic and + irregularly irregular Heart Sounds: normal S1 and normal S2; no murmur Vessels: no JVD Extremities: no edema Gastrointestinal (Abdomen): normal bowel sounds, soft, nontender, no hepatosplenomegaly Musculoskeletal: no cyanosis or clubbing, extremities motor strength 5/5 Skin: no rashes, warm and dry Results & Data Vital Signs (Past 12 Hours) Vital Signs Temp Pulse Resp BP Pulse Ox O2 Del Method 08/23/23 07:31 36.7 C 117 H 20 127/86 96 Room Air 08/23/23 03:00 36.7 C 116 H 19 112/69 96 Room Air 08/22/23 23:05 36.8 C 119 H 18 123/71 96 Room Air
--- NOTE | 2023-08-23 13:47 | Hospitalist Progress Note ---
Date of Service August 23, 2023 Assessment & Plan (1) Atrial fibrillation with rapid ventricular response: (2) T2DM (type 2 diabetes mellitus): (3) HTN (hypertension): (4) Centrilobular emphysema: Plan This is a 63-year-old female who has a significant past medical history of HTN, T2DM, COPD and tobacco use disorder who presents to ED secondary to generalized fatigue for couple of days. Atrial fibrillation with RVR Patient presents to the hospital with generalized fatigue for 2 days EKG on admission personally reviewed atrial fibrillation with ventricular rate of 162 [id number] (F, HTN, T2DM) Echocardiogram shows EF of 55 to 60%; mild concentric LVH. A-fib present TSH within normal limits On metoprolol succinate 50 mg twice a day for rate control Currently on IV heparin for anticoagulation; plan to change it to Eliquis at discharge. Prescription sent to pharmacy Continue to monitor on telemetry N.p.o. from midnight for possible cardioversion for persistent A-fib UTI Patient reports sweating episodes and generalized weakness prior to admission. Leukocytosis present on admission Urinalysis suggestive of infection Started on ceftriaxone. Obtain blood culture. Follow-up on final culture and sensitivity T2DM controlled w/o complication hold metformin, ozempic (last dose 08/20) lantus/novolog per protocol HTN pt bp has been on high side as outpatient losartan recently increased from 25mg to 50mg daily hold losartan for now COPD Tobacco abuse no acute exac encourage cessation she declines nicotine patch DVT ppx: IV heparin FULL CODE PCP: Dr. Vera Dispo: admit to PCU Time spent evaluating patient, direct bedside care, chart review, placing orders, interpretation of diagnostic studies, discussion with consultants, patient, and family members, as well as other required patient management activities is 50 minutes Please note the above document was generated using voice recognition software. It may contain grammatical, syntax or spelling errors. Any formal questions or concerns about the content, text or information contained within the body of this dictation should be directly addressed to the provider for clarification Admission and Anticipated Discharge Date Admission Date: August 22, 2023 Subjective Patient seen and examined at bedside. She is comfortably sitting up on the bed; not in distress. She reports that she is feeling much better compared to admission No complaint of palpitation, fever, chills Review of Systems Review of Systems: All systems reviewed & are unremarkable except as noted in Subjective Physical Exam Physical Exam: Constitutional: Alert oriented x 3; not in distress. Respiratory: normal respiratory effort, lungs clear to auscultation, no wheeze, rales, rhonchi. Normal insp/exp effort, no accessory muscle use Cardiovascular: Irregular, no murmur, no edema Vessels: no JVD or carotid bruit Chest: normal inspection of chest Abdomen: normal bowel sounds, soft, nontender, no hepatosplenomegaly Musculoskeletal: no cyanosis or clubbing, extremities motor strength 5/5 Skin: no rashes, warm and dry normal turgor Neurologic: PERRL, EOMI, accommodation nl, no face palsy, no dysarthria CN's II- XI intact bilaterally and moves all extremities Psychiatric: A+Ox3, euthymic affect Results & Data Results & Data Vital Signs (Past 12 Hours) Vital Signs Temp Pulse Pulse Resp BP BP Pulse Ox 08/23/23 11:01 36.7 C 125 H 20 128/85 94 08/23/23 10:37 120 H 08/23/23 10:37 08/23/23 07:31 36.7 C 117 H 20 127/86 96 08/23/23 03:00 36.7 C 116 H 19 112/69 96 O2 Del Method 08/23/23 11:01 Room Air 08/23/23 10:37 08/23/23 10:37 Room Air 08/23/23 07:31 Room Air 08/23/23 03:00 Room Air
[2023-08-23] MEDS: cefTRIAXone SODIUM 2,000 MG in DEXTROSE 5 % MINI-B 50 ML IV SCH (14:32)
--- NOTE | 2023-08-24 05:23 | Electrocardiogram Report ---
Test Reason : Blood Pressure : / mmHG Vent. Rate : 129 BPM Atrial Rate : 000 BPM P-R Int : 000 ms QRS Dur : 080 ms QT Int : 330 ms P-R-T Axes : 000 -62 057 degrees QTc Int : 483 ms Atrial fibrillation with rapid ventricular response Left axis deviation Septal infarct (cited on or before 22-AUG-2023) Abnormal ECG When compared with ECG of 22-AUG-2023 11:02, No significant change Confirmed by Neno Tate ([id number]) on 08/24/2023 5:22:53 AM Referred By: REFERRED SELF Confirmed By:Neno Tate
--- NOTE | 2023-08-24 05:24 | Electrocardiogram Report ---
Test Reason : Blood Pressure : / mmHG Vent. Rate : 116 BPM Atrial Rate : 375 BPM P-R Int : 000 ms QRS Dur : 084 ms QT Int : 328 ms P-R-T Axes : 000 -56 067 degrees QTc Int : 455 ms Atrial fibrillation with rapid ventricular response Left axis deviation Septal infarct (cited on or before 22-AUG-2023) Abnormal ECG When compared with ECG of 22-AUG-2023 14:46, No significant change was found Confirmed by Neno Tate ([id number]) on 08/24/2023 5:23:57 AM Referred By: REFERRED SELF Confirmed By:Neno Tate
[2023-08-24 06:13] LABS: Basophils # (auto) 0.06 K/uL (0.00-0.20); Basophils % (auto) 0.5 %; Eosinophils # (auto) 0.15 K/uL (0.00-0.50); Eosinophils % (auto) 1.3 %; Immature Granulocytes # (auto) 0.03 K/uL (0.01-0.20); Immature Granulocytes % (auto) 0.3 %; Lymphocytes % (auto) 27.7 %; Mean Corpuscular Hemoglobin 28.2 pg (25.0-34.0); Mean Corpuscular Hgb Conc 33.3 g/dL (32.0-36.0); Mean Corpuscular Volume 84.5 fL (80.0-100.0); Mean Platelet Volume 10.6 fL (9.4-12.4); Monocytes # (auto) 0.76 K/uL (0.11-0.59); Monocytes % (auto) 6.8 %; Neutrophils # (auto) 7.09 K/uL (1.40-6.50); Neutrophils % (auto) 63.4 %; Platelet Count 227 K/uL (130-400); RDW Coefficient of Variation 13.1 % (11.5-14.5); RDW Standard Deviation 40.2 fL (36.4-46.3); Red Blood Count 4.26 M/uL (4.20-5.40); White Blood Count 11.19 K/ul (4.8-10.8)
[2023-08-24 06:28] LABS: BUN Creatinine Ratio 18.1 (10-20); Calcium 9.2 mg/dl (8.6-10.3); Creatinine Clr Calc Pharmacy 87.6 ml/min; Est GFR (African American) 104.8 ml/min; Est GFR (Non-African American) 90.4 ml/min
--- NOTE | 2023-08-24 11:38 | Cardiology Progress Note ---
Date of Service August 24, 2023 Assessment & Plan (1) Atrial fibrillation with rapid ventricular response: (2) Atrial fibrillation, new onset: (3) HTN (hypertension): (4) T2DM (type 2 diabetes mellitus): (5) Centrilobular emphysema: Plan 63-year-old female without prior specific cardiac disease presents now with symptoms of weakness and fatigue times several weeks with profound symptoms 2 days prior to hospitalization. Patient found to be in atrial fibrillation with rapid trickle response Begun on beta-carlos therapy and anticoagulation with IV heparin on admission Heart rate still elevated but patient asymptomatic. 1. New onset atrial fibrillation: Duration uncertain suspicious and discussion with the patient who agrees possibly extended duration. Will opt initially for rate control. 50 mg metoprolol succinate to be given this morning. Continue anticoagulation with IV heparin with plan to transition to Eliquis. [id number] VASc 2 score at least 3 Echocardiogram to be reviewed Could consider JEREMY cardioversion if rate unable to be reduced No findings to suggest ischemia or heart failure on exam, EKG or laboratory testing. Chest x-ray clear Discussed all findings and management in detail with patient. No additional testing ordered for today, diet advanced 2. COPD/emphysema: Tobacco cessation mandated for all aspects of care 08/24/2023 Still with persistent elevation heart rate despite medications. Patient appropriately anticoagulated with heparin Discussed management will recommend transesophageal echocardiography guided cardioversion today Patient to remain n.p.o. Anesthesia consultation placed Admission and Anticipated Discharge Date Admission Date: August 22, 2023 Subjective Patient seen and examined, chart, medications, telemetry reviewed No acute complaints. Aware of heart fluttering overnight. Still in atrial fibrillation with increased ventricular response rate despite current medical therapy Respiratory status stable Review of Systems Review of Systems: All systems reviewed & are unremarkable except as noted in Subjective Physical Exam Constitutional: + obese; no acute distress Eyes: PERRL, conjunctivae normal, anicteric sclerae ENMT: external ear and nose normal, oropharynx normal Neck: trachea midline, no thyromegaly Respiratory: normal respiratory effort, lungs clear to auscultation Cardiovascular: Rate/Rhythm: + tachycardic and + irregularly irregular Heart Sounds: normal S1 and normal S2; no murmur Vessels: no JVD Extremities: no edema Gastrointestinal (Abdomen): normal bowel sounds, soft, nontender, no hepatosplenomegaly Musculoskeletal: no cyanosis or clubbing, extremities motor strength 5/5 Skin: no rashes, warm and dry Results & Data Vital Signs (Past 12 Hours) Vital Signs Temp Pulse Pulse Resp BP Pulse Ox O2 Del Method 08/24/23 07:59 98 H 08/24/23 07:15 37.0 C 110 H 17 132/84 97 Room Air 08/24/23 03:00 36.6 C 127 H 19 147/80 H 96 Room Air Laboratory Results Laboratory Results - last 24 hr 08/23/23 08/23/23 08/23/23 11:45 16:48 20:22 WBC RBC Hgb Hct MCV MCH MCHC RDW Std Deviation RDW Coeff of Valente Plt Count MPV Immature Gran % (Auto) Neut % (Auto) Lymph % (Auto) [place] % (Auto) Eos % (Auto) Baso % (Auto) Neut # (Auto) Lymph # (Auto) [place] # (Auto) Eos # (Auto) Baso # (Auto) Immature Gran # (Auto) Heparin Anti-Xa, Unfract Sodium Potassium Chloride Carbon Dioxide Anion Gap BUN Creatinine Est Cr Clr Drug Dosing Est GFR ( Amer) Est GFR (Non-Af Amer) BUN/Creatinine Ratio Glucose POC Glucose 120 H 138 H 104 H Calcium 08/24/23 08/24/23 05:42 08:10 WBC 11.19 H RBC 4.26 Hgb 12.0 Hct 36.0 L MCV 84.5 MCH 28.2 MCHC 33.3 RDW Std Deviation 40.2 RDW Coeff of Valente 13.1 Plt Count 227 MPV 10.6 Immature Gran % (Auto) 0.3 Neut % (Auto) 63.4 Lymph % (Auto) 27.7 [place] % (Auto) 6.8 Eos % (Auto) 1.3 Baso % (Auto) 0.5 Neut # (Auto) 7.09 H Lymph # (Auto) 3.10 [place] # (Auto) 0.76 H Eos # (Auto) 0.15 Baso # (Auto) 0.06 Immature Gran # (Auto) 0.03 Heparin Anti-Xa, Unfract 0.30 Sodium 139 Potassium 4.0 Chloride 106 Carbon Dioxide 25 Anion Gap 8 BUN 13 Creatinine 0.72 Est Cr Clr Drug Dosing 87.6 Est GFR ( Amer) 104.8 Est GFR (Non-Af Amer) 90.4 BUN/Creatinine Ratio 18.1 Glucose 118 H POC Glucose 133 H Calcium 9.2
--- NOTE | 2023-08-24 11:49 | Electrocardiogram Report ---
Test Reason : Blood Pressure : / mmHG Vent. Rate : 120 BPM Atrial Rate : 108 BPM P-R Int : 000 ms QRS Dur : 086 ms QT Int : 326 ms P-R-T Axes : 000 -55 051 degrees QTc Int : 460 ms Poor data quality, interpretation may be adversely affected Atrial fibrillation with rapid ventricular response Left axis deviation Abnormal ECG When compared with ECG of 23-AUG-2023 06:00, No significant change was found Confirmed by Franc Soto ([id number]) on 08/24/2023 11:49:00 AM Referred By: REFERRED SELF Confirmed By:Franc Soto
--- NOTE | 2023-08-24 12:46 | Anesthesiology Consultation ---
Date of Service August 24, 2023 Assessment & Plan Chart Review Chart Review: Acceptable Risk for Surgery Consults Requested none History Surgery Operation Date: 08/24/23 13:00 Proposed Procedures p Transesophageal Echo w/Anesthesia - Angel Reyes MD Height/Weight Height: 5 ft 6 in Weight: 80.1 kg Allergies Allergy/AdvReac Type Severity Reaction Status Date / Time No Known Allergies Allergy Unknown Verified 07/13/07 23:14 Medications Home Medications Medication Instructions Recorded Confirmed Last Taken atorvastatin 20 mg tablet 20 mg PO DAILY 08/22/23 08/22/23 Unknown losartan 50 mg tablet 50 mg PO DAILY 08/22/23 08/22/23 Unknown metformin 500 mg tablet,extended 2,000 mg PO QPM 08/22/23 08/22/23 Unknown release 24 hr pantoprazole 40 mg tablet,delayed 40 mg PO DAILY 08/22/23 08/22/23 Unknown release semaglutide 1 mg/dose (4 mg/3 mL) 1 mg subcut MO 08/22/23 08/22/23 Unknown subcutaneous pen injector (Ozempic) tolterodine 4 mg capsule,extended 4 mg PO DAILY 08/22/23 08/22/23 Unknown release 24 hr zinc acetate 50 mg (zinc) capsule 50 mg PO DAILY 08/22/23 08/22/23 Unknown apixaban 5 mg tablet (Eliquis) 5 mg PO BID #60 tabs 08/23/23 Unknown Active Medications Generic Name Dose Route Start Last Admin Trade Name Freq PRN Reason Stop Dose Admin Atorvastatin Calcium 20 mg 08/23/23 09:00 08/24/23 08:19 Atorvastatin 20 Mg Tab PO 09/22/23 08:59 20 mg DAILY [facility] Administration Heparin Sodium/Dextrose 25,000 units in 500 mls @ 23 mls/hr 08/22/23 16:30 08/24/23 09:23 Heparin Sodium/Dextrose IV 09/21/23 16:29 1,150 units/hr .[id number] [facility] 23 mls/hr Administration Protocol 1,150 UNITS/HR Ceftriaxone Sodium 2,000 mg/ 50 mls @ 100 mls/hr 08/23/23 14:00 08/23/23 15:05 Dextrose IV 08/28/23 13:59 Infused Q24H [facility] Infusion Protocol Insulin Aspart 0 units 08/22/23 16:57 08/24/23 12:24 Insulin Aspart Per Unit Charge SC 09/21/23 16:56 Not Given ACHS RHODA Insulin Glargine 0 - 8 units 08/22/23 21:00 08/24/23 08:23 Lantus Per Unit Charge SQ 09/21/23 20:59 4 units BID [facility]ODA Administration Metoprolol Succinate 50 mg 08/23/23 09:00 08/24/23 08:19 Metoprolol Succ 50mg Ext Rel Tab PO 09/22/23 08:59 50 mg BID [facility] Administration Metoprolol Tartrate 5 mg 08/22/23 16:57 08/22/23 19:51 Metoprolol Tartrate 1 Mg/Ml Vial IV 09/21/23 16:56 5 mg Q6 PRN Administration HR >120 Oxybutynin Chloride 10 mg 08/23/23 09:00 08/24/23 08:21 Oxybutynin Chloride Xl 5 Mg Tabcr PO 09/22/23 08:59 10 mg DAILY [facility] Administration Pantoprazole Sodium 40 mg 08/23/23 09:00 08/24/23 08:21 Pantoprazole 40 Mg Tab PO 09/22/23 08:59 40 mg DAILY [facility] Administration Past Medical History Medical History Female stress incontinence Tobacco use Centrilobular emphysema T2DM (type 2 diabetes mellitus) HTN (hypertension) Past Family History Family History Mother Diabetes Past Surgical History Surgical History Hx of cystoscopy Hx of bilateral cataract extraction Hx of tubal ligation Hx of hysterectomy Social History Smoking Status: Current every day smoker Do You Dip or Chew Tobacco: No Hx Alcohol Use: No Hx Substance Use: No Physical Exam Vital Signs Last Vital Signs Temp 37.0 C 08/24/23 11:30 Pulse 116 H 08/24/23 11:30 Resp 17 08/24/23 11:30 BP 141/68 H 08/24/23 11:30 Pulse Ox 95 08/24/23 11:30 O2 Del Method Room Air 08/24/23 11:30 Testing Laboratory Results 08/24/23 05:42 08/24/23 05:42 PT 9.8 Seconds (9.0-12.0) 08/22/23 11:00 INR 0.9 (0.9-1.1) 08/22/23 11:00 Urine Color Yellow 08/23/23 02:20 Urine Appearance Clear (Clear) 08/23/23 02:20 Urine pH 5.5 (4.5-7.5) 08/23/23 02:20 Ur Specific [place] 1.006 (1.000-1.030) 08/23/23 02:20 Urine Protein Negative (Negative) 08/23/23 02:20 Urine Glucose (UA) Negative (Negative) 08/23/23 02:20 Urine Ketones Negative (Negative) 08/23/23 02:20 Urine Nitrite Negative (Negative) 08/23/23 02:20 Ur Leukocyte Esterase Trace (Negative) H 08/23/23 02:20 Urine WBC (Auto) 1-5 /hpf (0-5) 08/23/23 02:20 Urine RBC (Auto) 0-4 /hpf (0-4) 08/23/23 02:20 U Hyaline Cast (Auto) 0 /lpf (0-5) 08/23/23 02:20 U Epithel Cells (Auto) 0-5 /lpf (0-5) 08/23/23 02:20 Urine Bacteria (Auto) 2+ (Negative) H 08/23/23 02:20 08/23/23 10:59 Aerobic Blood Culture - Preliminary Blood No growth in Aerobic bottle after 24 hours. Anaerobic Blood Culture - Preliminary No growth in Anaerobic bottle after 24 hours. 08/23/23 10:49 Aerobic Blood Culture - Preliminary Blood No growth in Aerobic bottle after 24 hours. Anaerobic Blood Culture - Preliminary No growth in Anaerobic bottle after 24 hours. 08/23/23 02:20 Urine Culture - Preliminary Urine,Clean Catch Gram negative bacilli 08/24/23 08/24/23 12:13 08:10 POC Glucose 103 H 133 H
[2023-08-24] MEDS ORDERED: PROPOFOL IV EMULSION 10 MG/ML 20 ML VIAL IV ONE (12:47)
[2023-08-24] MEDS ORDERED: LIDOCAINE 2% 2 ML VIAL/AMP(20MG/ML) INFIL ONE (12:47)
--- NOTE | 2023-08-24 13:26 | Anesthesiology Progress Note ---
Date of Service August 24, 2023 Anesthesia Post Procedure Vital Signs Vital Signs: Temp Pulse Pulse Resp BP Pulse Ox O2 Del Method 08/24/23 12:50 150 H 18 110/46 L 95 Room Air 08/24/23 11:30 37.0 C 116 H 17 141/68 H 95 Room Air 08/24/23 07:59 98 H 08/24/23 07:15 37.0 C 110 H 17 132/84 97 Room Air 08/24/23 03:00 36.6 C 127 H 19 147/80 H 96 Room Air 08/23/23 23:00 36.5 C 118 H 22 101/73 97 Room Air 08/23/23 22:00 128 H 08/23/23 19:00 36.7 C 118 H 19 136/80 96 Room Air 08/23/23 16:06 37.0 C 110 H 20 127/84 97 Room Air 08/23/23 15:53 118 H Transfer of Care Handoff Completed per policy Notes Mental Status: alert / awake / arousable and participated in evaluation Patient Amnestic to Procedure: Yes Nausea / Vomiting: adequately controlled Pain: adequately controlled Airway Patency, RR, SpO2: stable & adequate BP & HR: stable & adequate Hydration State: stable & adequate Anesthetic Complications: no major complications apparent
--- NOTE | 2023-08-24 13:32 | Cardioversion ---
Date of Service August 24, 2023 Electrical Cardioversion Rpt Electrical Cardioversion Report Patient was seen and examined. Procedure and risks of JEREMY guided synchronized electrical cardioversion discussed in detail, informed consent obtained. Formal TIMEOUT performed Posterior oropharynx was anesthetized topically with Cetacaine spray. Patient sedated via anesthesia consult with continuous O2, HR, BP, endtidal CO2 monitoring. Transesophageal imaging obtained without difficulty No contraindications to cardioversion present Patient repositioned to supine and synchronized electrical cardioversion performed with single biphasic 200J shock with successful conversion to sinus rhythm Patient aroused, tolerated well EKG NSR at 92bpm QTC 460
[2023-08-24] MEDS: BENZOCAINE/TETRACAIN/BUTAM 50 APPLN/5 GM CAN EXT ONE (14:09)
--- NOTE | 2023-08-24 14:49 | Communication Note ---
Date of Service: August 24, 2023 Patient seen post cardioversion. Feels much improved. Heart rate 80s. Impression: Newly observed atrial fibrillation with successful return to sinus r hythm following JEREMY guided cardioversion. Will continue metoprolol succinate 50 mg twice per day. Transition anticoagulation from IV heparin to Eliquis if formulary outpatient allow Anticipate discharge to home in a.m. Sleep medicine referral as outpatient
--- NOTE | 2023-08-24 14:50 | Hospitalist Progress Note ---
Date of Service August 24, 2023 Assessment & Plan (1) Atrial fibrillation with rapid ventricular response: (2) T2DM (type 2 diabetes mellitus): (3) HTN (hypertension): (4) Centrilobular emphysema: Plan This is a 63-year-old female who has a significant past medical history of HTN, T2DM, COPD and tobacco use disorder who presents to ED secondary to generalized fatigue for couple of days. Atrial fibrillation with RVR Patient presents to the hospital with generalized fatigue for 2 days EKG on admission personally reviewed atrial fibrillation with ventricular rate of 162 [id number] (F, HTN, T2DM) Echocardiogram shows EF of 55 to 60%; mild concentric LVH. A-fib present TSH within normal limits Status post cardioversion on 08/24 Discussed with cardiology; continue on metoprolol succinate 50 mg twice a day. Currently on IV heparin for anticoagulation; plan to change it to Eliquis at discharge. Prescription sent to pharmacy Continue to monitor on telemetry UTI Patient reports sweating episodes and generalized weakness prior to admission. Leukocytosis present on admission Urinalysis suggestive of infection Urine culture growing gram-negative bacilli Blood culture no growth Continue on ceftriaxone; will follow-up on final culture results T2DM controlled w/o complication hold metformin, ozempic (last dose 08/20) lantus/novolog per protocol HTN pt bp has been on high side as outpatient losartan recently increased from 25mg to 50mg daily hold losartan for now COPD Tobacco abuse no acute exac encourage cessation she declines nicotine patch DVT ppx: IV heparin FULL CODE PCP: Dr. Vera Dispo: admit to PCU Time spent evaluating patient, direct bedside care, chart review, placing orders, interpretation of diagnostic studies, discussion with consultants, patient, and family members, as well as other required patient management activities is 50 minutes Please note the above document was generated using voice recognition software. It may contain grammatical, syntax or spelling errors. Any formal questions or concerns about the content, text or information contained within the body of this dictation should be directly addressed to the provider for clarification Admission and Anticipated Discharge Date Admission Date: August 22, 2023 Subjective Patient seen and examined at bedside. Patient continues to be in atrial fibrillation with ventricular rate in the 110-120s No complaint of chest pain, shortness of breath or dizziness. Review of Systems Review of Systems: All systems reviewed & are unremarkable except as noted in Subjective Physical Exam Physical Exam: Constitutional: Alert oriented x 3; not in distress. Respiratory: normal respiratory effort, lungs clear to auscultation, no wheeze, rales, rhonchi. Normal insp/exp effort, no accessory muscle use Cardiovascular: Irregular, no murmur, no edema Vessels: no JVD or carotid bruit Chest: normal inspection of chest Abdomen: normal bowel sounds, soft, nontender, no hepatosplenomegaly Musculoskeletal: no cyanosis or clubbing, extremities motor strength 5/5 Skin: no rashes, warm and dry normal turgor Neurologic: PERRL, EOMI, accommodation nl, no face palsy, no dysarthria CN's II- XI intact bilaterally and moves all extremities Psychiatric: A+Ox3, euthymic affect Results & Data Results & Data Vital Signs (Past 12 Hours) Vital Signs Temp Pulse Pulse Resp BP Pulse Ox O2 Del Method 08/24/23 14:00 36.5 C 84 16 124/73 96 Room Air 08/24/23 13:43 86 18 124/60 97 Room Air 08/24/23 13:25 88 18 127/63 97 Room Air 08/24/23 12:50 150 H 18 110/46 L 95 Room Air 08/24/23 11:30 37.0 C 116 H 17 141/68 H 95 Room Air 08/24/23 07:59 98 H 08/24/23 07:15 37.0 C 110 H 17 132/84 97 Room Air 08/24/23 03:00 36.6 C 127 H 19 147/80 H 96 Room Air
--- NOTE | 2023-08-24 15:43 | Electrocardiogram Report ---
Test Reason : Blood Pressure : / mmHG Vent. Rate : 092 BPM Atrial Rate : 092 BPM P-R Int : 130 ms QRS Dur : 088 ms QT Int : 372 ms P-R-T Axes : 073 -57 062 degrees QTc Int : 460 ms Normal sinus rhythm Left axis deviation Abnormal ECG When compared with ECG of 24-AUG-2023 05:51, Sinus rhythm has replaced Atrial fibrillation Confirmed by Franc Soto ([id number]) on 08/24/2023 3:43:34 PM Referred By: REFERRED SELF Confirmed By:Franc Soto
[2023-08-24] MEDS: ACETAMINOPHEN 325 MG TAB PO PRN (19:12)
[2023-08-25 06:02] LABS: Basophils # (auto) 0.06 K/uL (0.00-0.20); Basophils % (auto) 0.7 %; Eosinophils # (auto) 0.18 K/uL (0.00-0.50); Eosinophils % (auto) 2.2 %; Hematocrit (blood only) 36.5 % (37.0-47.0); Hemoglobin 11.8 g/dl (12.0-16.0); Immature Granulocytes # (auto) 0.02 K/uL (0.01-0.20); Immature Granulocytes % (auto) 0.2 %; Lymphocytes # (auto) 2.39 K/uL (1.20-3.40); Lymphocytes % (auto) 29.5 %; Mean Corpuscular Hemoglobin 27.8 pg (25.0-34.0); Mean Corpuscular Hgb Conc 32.3 g/dL (32.0-36.0); Mean Corpuscular Volume 86.1 fL (80.0-100.0); Mean Platelet Volume 10.1 fL (9.4-12.4); Monocytes # (auto) 0.65 K/uL (0.11-0.59); Neutrophils % (auto) 59.4 %; Platelet Count 225 K/uL (130-400); RDW Standard Deviation 40.5 fL (36.4-46.3); Red Blood Count 4.24 M/uL (4.20-5.40)
[2023-08-25 06:07] LABS: BUN Creatinine Ratio 17.1 (10-20); Calcium 9.1 mg/dl (8.6-10.3); Creatinine Clr Calc Pharmacy 90.1 ml/min; Est GFR (African American) 108.4 ml/min; Est GFR (Non-African American) 93.5 ml/min; Potassium 3.9 mmol/L (3.5-5.1)
[2023-08-25 06:21] LABS: ANTI-Xa, UFH(UnfractionatedHep 0.25 IU/ml (0.3-0.7)
[2023-08-25] MEDS: APIXABAN 5 MG TABLET PO SCH (12:41)
--- NOTE | 2023-08-25 14:41 | Cardiology Progress Note ---
Date of Service August 25, 2023 Assessment & Plan (1) Atrial fibrillation with rapid ventricular response: Plan 63-year-old female with symptomatic new onset atrial fibrillation with rapid ventricular response. Underlying history of emphysema, tobacco use, hypertension and dyslipidemia [id number] score 3 for risk factors of female sex, hypertension and diabetes. Transthoracic echocardiogram revealed mild concentric left ventricular hypertrophy, LVEF in the range of 55-60%, with no significant valvular pathology Patient underwent JEREMY guided direct-current cardioversion on 08/24/2023 with subsequent sinus rhythm. Patient to be discharged on metoprolol succinate 50 mg twice daily and Eliquis 5 mg daily for stroke prophylaxis. I counseled her with regards to maintaining Eliquis without interruption every 12 hours. Continue atorvastatin for dyslipidemia. Stable for discharge from a cardiology perspective. Outpatient cardiology follow-up to be arranged. Admission and Anticipated Discharge Date Admission Date: August 22, 2023 Subjective Patient seen in cardiology follow-up. Feels well. Denies chest discomfort or shortness of breath. Tolerated transesophageal echocardiogram guided cardioversion well yesterday. Telemetry reveals ongoing sinus rhythm. Physical Exam Constitutional: + obese; no acute distress Eyes: PERRL, conjunctivae normal, anicteric sclerae ENMT: external ear and nose normal, oropharynx normal Neck: trachea midline, no thyromegaly Respiratory: normal respiratory effort, lungs clear to auscultation Cardiovascular: Rate/Rhythm: + tachycardic and + irregularly irregular Heart Sounds: normal S1 and normal S2; no murmur Vessels: no JVD Extremities: no edema Gastrointestinal (Abdomen): normal bowel sounds, soft, nontender, no hepatospl enomegaly Musculoskeletal: no cyanosis or clubbing, extremities motor strength 5/5 Skin: no rashes, warm and dry Results & Data Vital Signs (Past 12 Hours) Vital Signs Temp Pulse Pulse Resp BP BP Pulse Ox 08/25/23 13:10 36.7 C 80 18 143/82 H 155/80 H 95 08/25/23 12:13 36.7 C 80 155/80 H 95 08/25/23 07:45 36.8 C 76 160/77 H 95 08/25/23 07:25 79 08/25/23 03:19 36.6 C 79 18 163/79 H 96 O2 Del Method 08/25/23 13:10 08/25/23 12:13 Room Air 08/25/23 07:45 Room Air 08/25/23 07:25 08/25/23 03:19 Room Air Laboratory Results Post procedure EKG performed 08/24/2023 and interpreted independently: Normal sinus rhythm at 92 bpm, corrected QT interval normal 460 ms, compared to the previous tracing sinus rhythm has replaced atrial fibrillation
--- NOTE | 2023-08-25 17:07 | Discharge Summary ---
Date of Service August 25, 2023 Admission HPI Per Admitting Provider This is a 63-year-old female who has a significant past medical history of HTN, T2DM, COPD and tobacco use disorder who presents to ED secondary to dizziness x 1.5 days. Her is at bedside who also helps elicit history. Her PCP is Dr. Vera. She states yesterday morning when she woke up that she felt unwell, generally weak, lethargic, unable to function and episodes of feeling like she was going, "passed out." The symptoms persisted throughout the day and she states they were worse when she was at work. They required her to leave work early and when she went home she was, "not functional. Her symptoms progressed today which brought her to the ED. during the symptoms she denies feeling elvia palpitations, chest pain, shortness breath at rest or with exertion. She denies elvia syncope. She states that she has had similar symptoms on and off, "her whole life." She does have known history of diabetes and has been on Ozempic of late. She states that she typically gets nauseated after taking Ozempic. She takes this on Sunday. She did have a few episodes of vomiting due to Ozempic as well. She states that 2 to 3 weeks ago she had a viral respiratory illness. She otherwise has been well. She denies any fever, chills, sweats, abdominal pain, dysuria, increased urgency or frequency with urination, melena or hematochezia. She denies ever having history of atrial fibrillation in the past. She states her father when she was young, but she knows he underwent bypass surgery. She otherwise denies any family history of atrial arrhythmias. She denies any prior history of thyroid disorder. She is a chronic tobacco abuser. She has not smoked since the age of 17. She denies any significant alcohol use. In ED patient was found to be in atrial fibrillation with RVR. She received 5 mg of IV Lopressor x 3 with intermittent improvement of heart rates. She denies any prior history of any severe bleeding episodes, epistaxis, GI bleeding or brain bleeding. She denies any prior history of trauma. Admission Exam Per Admitting Provider On exam patient is moderately built and nourished, no apparent distress, normocephalic atraumatic, EOMI, normal breath sounds, clear to auscultation, irregularly irregular, tachycardia, no murmur, abdomen soft, nontender, normal bowel sounds, alert, awake, oriented, grossly no focal deficits, no pedal edema. Principal Diagnosis Atrial fibrillation with RVR status post electrical cardioversion Urinary tract infection Discharge Exam Constitutional: Alert oriented x 3; not in distress. Respiratory: normal respiratory effort, lungs clear to auscultation, no wheeze, rales, rhonchi. Normal insp/exp effort, no accessory muscle use Cardiovascular: Regular no murmur, no edema Vessels: no JVD or carotid bruit Chest: normal inspection of chest Abdomen: normal bowel sounds, soft, nontender, no hepatosplenomegaly Musculoskeletal: no cyanosis or clubbing, extremities motor strength 5/5 Skin: no rashes, warm and dry normal turgor Neurologic: PERRL, EOMI, accommodation nl, no face palsy, no dysarthria CN's II- XI intact bilaterally and moves all extremities Psychiatric: A+Ox3, euthymic affect Discharge Data Allergies Allergy/AdvReac Type Severity Reaction Status Date / Time No Known Allergies Allergy Unknown Verified 07/13/07 23:14 Consultations 08/22/23 15:14 ED Decision to Admit Stat 08/22/23 15:39 Consult Cardiology Routine 08/24/23 11:38 Consult Anesthesiology Routine Procedures Performed Operation Date: 08/24/23 13:00 Actual Procedures s Echo Color Flow - Angel Reyes MD p Echo Transesophageal - Angel Reyes MD s Cardioversion - Angel Reyes MD s Doppler Echo Limited/Follow Up - Angel Reyes MD Hospital Course (1) Atrial fibrillation with rapid ventricular response: (2) T2DM (type 2 diabetes mellitus): (3) HTN (hypertension): (4) Centrilobular emphysema: Plan This is a 63-year-old female who has a significant past medical history of HTN, T2DM, COPD and tobacco use disorder who presents to ED secondary to generalized fatigue for couple of days. Atrial fibrillation with RVR Patient presents to the hospital with generalized fatigue for 2 days EKG on admission personally reviewed atrial fibrillation with ventricular rate of 162 [id number] (F, HTN, T2DM) Echocardiogram shows EF of 55 to 60%; mild concentric LVH. A-fib present TSH within normal limits Status post JEREMY with electrical cardioversion on 08/24 As per recommendation by cardiology; she was placed on metoprolol 50 mg twice a day for rate control She was also prescribed Eliquis 5 mg twice a day for anticoagulation. Patient to follow-up with PCP as outpatient UTI Patient reports sweating episodes and generalized weakness prior to admission. Leukocytosis present on admission Urinalysis suggestive of infection Urine culture growing E. coli Blood cultureno growth During the hospitalization, patient was treated with ceftriaxone. At discharge; prescribed Augmentin to complete the antibiotic course. Patient to follow-up with PCP as outpatient Please note the above document was generated using voice recognition software. It may contain grammatical, syntax or spelling errors. Any formal questions or concerns about the content, text or information contained within the body of this dictation should be directly addressed to the provider for clarification Total Time Total Time Spent Total Time Spent (In Minutes): 45 Discharge Plan Discharge Items Patient Disposition: Home - Self-Care Reason For Visit: AFIB RVR Discharge Diagnosis: Atrial fibrillation with RVR UTI Activity: Resume your previous activity Non-emergency contact: Primary Care Provider Call non-emergency contact if: you have any medication questions and your symptoms worsen Follow-up/Referrals: Angel Reyes MD [Physician] - (The Cardiology office will contact you for a follow up appointment.) Rolf Vera MD [Primary Care Provider] - (Date & Time 08/30/2023 10:20 AM Provider Aguilar Lombardo MD Department Family [facility] ) Diet: Regular Addtl Attending Provider Instructions: You were admitted to the hospital with atrial fibrillation with RVR. You were seen by cardiology during the hospitalization and underwent cardioversion on August 24, 2023. You were prescribed metoprolol succinate 50 mg twice a day to control your heart rate. You are also prescribed blood thinner (Eliquis) 5 mg twice daily. Please start taking Eliquis today evening. Appointments has been set up with your primary care doctor and cardiology. Please follow-up with them. You are prescribed Augmentin for 3 more days to complete the antibiotic course for UTI. Pending Studies at Discharge: No Stand-Alone Forms: My [employer], Work/School Release, Smoking Cessation Medications and DC Order Prescriptions: New Eliquis 5 mg tablet 5 mg PO BID Qty: 60 0RF metoprolol succinate 50 mg Tablet Extended Release 24 Hr 50 mg PO BID Qty: 60 0RF amoxicillin-pot clavulanate 875-125 mg tablet 1 tab PO BID 3 Days Qty: 6 0RF Continued losartan 50 mg tablet 50 mg PO DAILY atorvastatin 20 mg tablet 20 mg PO DAILY tolterodine 4 mg capsule,extended release 24hr 4 mg PO DAILY pantoprazole 40 mg tablet,delayed release (DR/EC) 40 mg PO DAILY metformin 500 mg tablet extended release 24 hr 2,000 mg PO QPM Ozempic 1 mg/dose (4 mg/3 mL) pen injector 1 mg SUBCUT MO zinc acetate 50 mg (zinc) Capsule 50 mg PO DAILY Discharge Orders: Discharge Order (Routine); Ordered 08/25/23 Ordered By: Richardson Farrell Admission Data Admit Date/Time: 08/22/23 15:13 Attending Provider: Richardson Farrell Admit Provider: Nathan Gallego Primary Care Provider: Rolf Vera Other Providers: Nathan Gallego; Angel Reyes; Linda Pineda; Neris Pak; Nano Simon; Mayra Miller; Kade Reeder; Daniel Mobley; Jozef Bazan; Urbano Thakur; Carlota Thakur; Alexandro Zuniga; Irina Colin; Irvin Omer; Reece Arechiga; Hernan Chapin; Jose Tatum; Kathy King; Aleksey Rubalcava; Rossy Rubalcava; Minesh Jean; Chelsi Wallis; Jose Howell; Crystal Meyer; Julia Samayoa; Kenneth Rand; Rocio Iniguez; Cathleen Daniels; Taty Weaver; Sandra Beach; Yassine Beach V; Cristobal Otto; Neris Walters; Bon Jacobs; Mikki Vanegas; Yassine Devlin; Joaquin King; Kevin Dela Cruz; Saloni Jordan; Grisel Fields; Yassine Pat; Gumaro Gutierrez; Marilu Chinchilla; Kali Crouch; Ladi Hoffman; Radha Kolb; Nima Ravi; Eric Tatum; Daya Styles; Jenifer Riojas; Artemio Rosenthal; Ramesh Lopez; Kade Shepard Jr; Ladi Lebron; Tomasa Trujillo; Any Givens; Kenneth Díaz; Urbano Mejia; Aracely Howe; Tomasa Corona; Fabrizio Castillo; Harmeet Gonzalez; Yunior Whitt; Rashi Avina; Nick Corrales; Francisco Olivares; Karon Stein; Divine Andrea Other Interventions: Discharge Summary Assessment (RN) Last Done: 08/25/23 13:10
== END 2023-08-25 14:15 | disposition home or self-care (01) | DRG 309 ==
LOC: ED 10:24 → 4W 15:13 → SUATTDRO 15:13 → 4W 16:29

== ENCOUNTER 2023-12-08 14:41 | Inpatient (IN) ==
--- NOTE | 2023-12-08 14:47 | ED Triage Note ---
Date of Service December 08, 2023 Provider in Triage Author: Andrez Kemp History of Present Illness This patient was briefly evaluated while in triage. An abbreviated physical exam was performed. This patient is a 63-year-old Female who presents to the ED for evaluation HTN, DM, Afib of Eliquis "I'm in afib" started today SOB, dizzy, heart racing, nausea to see cards this month compliant with Eliquis and metoprolol Physical Exam GENERAL: NAD, HR 120s CARDIOVASCULAR: Tachycardic, irregular RESPIRATORY: CTA ABDOMEN: BS x 4. Nontender to palpation. Initial orders for labs and / or imaging were placed and patient was placed in the waiting area until a bed is available. Please see further documentation for the full ED course.
[2023-12-08] MEDS: dilTIAZem HCl 5 MG/ML 5 ML VIAL IV ONE ×2 (15:08→19:24)
[2023-12-08 15:11] LABS: Basophils # (auto) 0.09 K/uL (0.00-0.20); Basophils % (auto) 0.7 %; Eosinophils # (auto) 0.17 K/uL (0.00-0.50); Eosinophils % (auto) 1.4 %; Hematocrit (blood only) 37.2 % (37.0-47.0); Hemoglobin 11.8 g/dl (12.0-16.0); Immature Granulocytes # (auto) 0.05 K/uL (0.01-0.20); Immature Granulocytes % (auto) 0.4 %; Lymphocytes # (auto) 2.88 K/uL (1.20-3.40); Mean Corpuscular Hemoglobin 26.6 pg (25.0-34.0); Mean Corpuscular Hgb Conc 31.7 g/dL (32.0-36.0); Mean Platelet Volume 9.5 fL (9.4-12.4); Monocytes # (auto) 1.05 K/uL (0.11-0.59); Monocytes % (auto) 8.4 %; Neutrophils # (auto) 8.26 K/uL (1.40-6.50); Neutrophils % (auto) 66.1 %; Platelet Count 406 K/uL (130-400); RDW Coefficient of Variation 12.3 % (11.5-14.5); RDW Standard Deviation 37.4 fL (36.4-46.3); Red Blood Count 4.43 M/uL (4.20-5.40)
[2023-12-08] MEDS: LORazepam 1 MG/1 ML SYR ED Inj Use IV STA (15:15)
[2023-12-08] MEDS: LORazepam 1 MG/1 ML SYR ED Inj Use ONE (15:20)
[2023-12-08] MEDS: dilTIAZem HCl 5 MG/ML 5 ML VIAL IV STA (15:20)
[2023-12-08 15:25] LABS: Albumin Globulin Ratio 1.4 (0.9-2); Albumin Level 4.4 gm/dl (3.4-5.0); BUN Creatinine Ratio 14.6 (10-20); Bilirubin,Total 0.3 mg/dl (0.2-1.0); Calcium 9.1 mg/dl (8.6-10.3); Creatinine Clr Calc Pharmacy 73.1 ml/min; Est GFR (African American) 89.5 ml/min; Est GFR (Non-African American) 77.2 ml/min; Globulin 3.2 gm/dl (2.5-4.0); Magnesium 1.9 mg/dl (1.7-2.4); Potassium 4.5 mmol/L (3.5-5.1); Total Protein 7.6 gm/dl (6.0-8.3)
--- NOTE | 2023-12-08 15:26 | Emergency Department Note ---
History of Present Illness General Chief Complaint: Cardiac Assessment Stated Complaint: AFIB,CHEST PAIN,SOB Time Seen by Provider: 12/08/23 15:01 History of Present Illness Provider Complaint: + palpitations Onset (ago): 2 day(s) Duration: + Constant Arrhythmia history: + atrial fibrillation and + on anti-coagulants (On Eliquis) Associated symptoms: + chest pain and + shortness of breath; no nausea, no vomiting or no cough Home Medications Medication Instructions Recorded Confirmed Type atorvastatin 20 mg tablet 20 mg PO DAILY 08/22/23 12/08/23 History losartan 50 mg tablet 50 mg PO DAILY 08/22/23 12/08/23 History metformin 500 mg tablet,extended 2,000 mg PO QPM 08/22/23 12/08/23 History release 24 hr pantoprazole 40 mg tablet,delayed 40 mg PO DAILY 08/22/23 12/08/23 History release semaglutide 1 mg/dose (4 mg/3 mL) 1 mg subcut .WEEKLY 08/22/23 12/08/23 History subcutaneous pen injector (Ozempic) tolterodine 4 mg capsule,extended 4 mg PO DAILY 08/22/23 12/08/23 History release 24 hr zinc acetate 50 mg (zinc) capsule 50 mg PO DAILY 08/22/23 12/08/23 History apixaban 5 mg tablet (Eliquis) 5 mg PO BID #60 tabs 08/23/23 12/08/23 Rx metoprolol succinate 50 mg 50 mg PO BID #60 tabs 08/25/23 12/08/23 Rx tablet,extended release 24 hr biotin 1 mg tablet 0 mg PO DAILY 12/08/23 12/08/23 History lactobacillus combination no.4 3 0 mmu cells PO DAILY 12/08/23 12/08/23 History billion cell capsule (Probiotic) [id number] 1 tab PO DAILY 12/08/23 12/08/23 History tablet (Multivitamin 50 Plus tablet) Allergies Allergy/AdvReac Type Severity Reaction Status Date / Time No Known Allergies Allergy Unknown Verified 07/13/07 23:14 Past Med/Surg History Problem List (Updated 12/08/23 @ 16:11 by Jose Gonzalez MD) Atrial fibrillation, new onset (Acute) Atrial fibrillation with rapid ventricular response (Acute) Centrilobular emphysema T2DM (type 2 diabetes mellitus) HTN (hypertension) Medical History Dizziness Female stress incontinence Tobacco use Surgical History Hx of cystoscopy Hx of bilateral cataract extraction Hx of tubal ligation Hx of hysterectomy Family History Mother Diabetes Social History Smoking Status: Former smoker Tobacco Type: Cigarettes Second Hand Exposure: No; Do You Dip or Chew Tobacco: No; Hx Alcohol Use: No Hx Substance Use: No Preferred Language: Gabonese Communication Ability: Effective Fur Repairer Required: No Beliefs That Will Affect Care: None Current Living Situation: Spouse Feels Safe at Home: Yes Assistive Devices: None Physical Exam 2 Vital Signs: Vital Signs - 24 hr 12/08/23 14:44 12/08/23 15:03 12/08/23 15:06 Temperature 37.2 C Temperature Source Temporal Artery Sc an Pulse Rate 112 H 160 H Pulse Rate from Sp O2 Sensor 110 H Pulse Rhythm Regular Pulse Strength Normal Respiratory Rate 16 17 Respiratory Effort / Characteristics Non-Labored Respiratory Depth Normal Respiratory Patter n Regular Blood Pressure 123/73 Blood Pressure Yoanna n 89 Blood Pressure Pos ition Sitting Pulse Oximetry 99 99 98 Oxygen Delivery Me thod Room Air Room Air Sepsis Recent Feve r Within 48 Hours No Sepsis New/Unexpla ined Change in Men afshin Status No Sepsis Action Take n by Nursing No Action Required 12/08/23 15:08 12/08/23 15:15 12/08/23 15:40 Temperature Temperature Source Pulse Rate 146 H 117 H Pulse Rate from Sp O2 Sensor 104 H Pulse Rhythm Pulse Strength Respiratory Rate 14 Respiratory Effort / Characteristics Respiratory Depth Respiratory Patter n Blood Pressure 124/60 Blood Pressure Yoanna n 71 Blood Pressure Pos ition Pulse Oximetry 97 Oxygen Delivery Me thod Sepsis Recent Feve r Within 48 Hours Sepsis New/Unexpla ined Change in Men afshin Status Sepsis Action Take n by Nursing 12/08/23 15:45 12/08/23 15:51 Temperature Temperature Source Pulse Rate 99 H Pulse Rate from Sp O2 Sensor 101 H Pulse Rhythm Pulse Strength Respiratory Rate 16 Respiratory Effort / Characteristics Respiratory Depth Respiratory Patter n Blood Pressure 120/80 118/79 Blood Pressure Yoanna n 96 92 Blood Pressure Pos ition Pulse Oximetry 98 Oxygen Delivery Me thod Room Air Sepsis Recent Feve r Within 48 Hours Sepsis New/Unexpla ined Change in Men afshin Status Sepsis Action Take n by Nursing Physical Exam: Physical Exam GENERAL: oriented to person, place, and time. appears well-developed and well- nourished. HENT: Exam performed. - Head: Normocephalic and atraumatic. EYES: Conjunctivae and EOM are normal. Right eye exhibits no discharge. Left eye exhibits no discharge. No scleral icterus. NECK: Normal range of motion. Neck supple. No JVD present. CV: Tachycardic rate, irregular rhythm, normal heart sounds and intact distal pulses. There is no peripheral edema. Palpable radial pulses bue. PULM/CHEST: Effort normal and breath sounds normal. No respiratory distress. No stridor. no wheezes. no rales. ABD: The abdomen is soft. There is no tenderness. NEURO: Motor and sensation grossly intact. SKIN: Skin is warm and dry. He is not diaphoretic. PSYCH: normal mood and affect. Behavior is normal. Judgment and thought content normal. Course Course 1501: The patient was evaluated in room A12. A complete history and physical exam was performed Cardiac monitoring: An order was placed for continuous cardiac monitoring. The monitor shows a rate of 160 with atiral fibrilation rhythm interpreted by me Cardizem 20 mg was ordered for the patient after large-bore IV access was obtained and was administered. Patient's ventricular rate improved into the 120s. Will start the patient on Cardizem drip as she states last time he took for 3 days for them to try to get her A-fib under control with medications ultimately she had to be cardioverted. Patient states she has been compliant with her Eliquis and metoprolol. 1609: Vital signs stable on Cardizem drip. Labs and imaging within normal limits [facility]. Administered Medications Sodium Chloride (Nss) 1,000 mls @ 999 mls/hr IV .Q1H1M ONE Stop: 12/08/23 16:11 Last Admin: 12/08/23 15:27 Dose: 999 mls/hr Documented By: [facility] Diltiazem HCl 125 mg/ Dextrose 125 mls @ 5 mls/hr IV .Q24H [facility]; Protocol Stop: 01/07/24 15:14 Last Admin: 12/08/23 15:27 Dose: 5 mg/hr, 5 mls/hr Documented By: RC Co-signed By: JACOB Discontinued Medications Diltiazem HCl (Diltiazem Hcl 5 Mg/Ml 5 Ml Vial) Confirm Administered Dose 25 mg IV .STK-MED ONE Stop: 12/08/23 15:08 Last Increment: 12/08/23 15:08 Dose: 20 mg Documented By: DEMI Co-signed By: JACOB Diltiazem HCl (Diltiazem Hcl 5 Mg/Ml 5 Ml Vial) 20 mg IV NOW STA Stop: 12/08/23 15:12 Last Admin: 12/08/23 15:20 Dose: Not Given Documented By: RC Lorazepam (Lorazepam 1 Mg/1 Ml Syr Ed Inj Use) Confirm Administered Dose 1 mg .ROUTE .STK-MED ONE Stop: 12/08/23 15:12 Last Admin: 12/08/23 15:20 Dose: Not Given Documented By: RC Lorazepam (Lorazepam 1 Mg/1 Ml Syr Ed Inj Use) 1 mg IV ONE STA Stop: 12/08/23 15:12 Last Admin: 12/08/23 15:15 Dose: 1 mg Documented By: DEMI Miscellaneous (Stat Iv Infusion Titration Per Protocol) 1 each N/A NOW STA Stop: 12/08/23 15:12 Last Admin: 12/08/23 15:30 Dose: Not Given Documented By: RC Medical Decision Making Laboratory Data Attestation: I reviewed the patient's lab results. 12/08/23 14:56 12/08/23 14:56 Lab Results 12/08/23 Range/Units 14:56 WBC 12.50 H (4.8-10.8) K/ul RBC 4.43 (4.20-5.40) M/uL Hgb 11.8 L (12.0-16.0) g/dl Hct 37.2 (37.0-47.0) % MCV 84.0 (80.0-100.0) fL MCH 26.6 (25.0-34.0) pg MCHC 31.7 L (32.0-36.0) g/dL RDW Std Deviation 37.4 (36.4-46.3) fL RDW Coeff of Valente 12.3 (11.5-14.5) % Plt Count 406 H (130-400) K/uL MPV 9.5 (9.4-12.4) fL Immature Gran % (Auto) 0.4 % Neut % (Auto) 66.1 % Lymph % (Auto) 23.0 % [place] % (Auto) 8.4 % Eos % (Auto) 1.4 % Baso % (Auto) 0.7 % Neut # (Auto) 8.26 H (1.40-6.50) K/uL Lymph # (Auto) 2.88 (1.20-3.40) K/uL [place] # (Auto) 1.05 H (0.11-0.59) K/uL Eos # (Auto) 0.17 (0.00-0.50) K/uL Baso # (Auto) 0.09 (0.00-0.20) K/uL Immature Gran # (Auto) 0.05 (0.01-0.20) K/uL PT 10.0 (9.0-12.0) Seconds INR 0.9 (0.9-1.1) APTT 28 (21-31) Seconds PTT Ratio 1.0 Sodium 138 (136-145) mmol/L Potassium 4.5 (3.5-5.1) mmol/L Chloride 102 (98-107) mmol/L Carbon Dioxide 29 (21-32) mmol/L Anion Gap 7 (3-11) BUN 12 (6-23) mg/dl Creatinine 0.82 (0.6-1.2) mg/dl Est Cr Clr Drug Dosing 73.1 ml/min Est GFR ( Amer) 89.5 ml/min Est GFR (Non-Af Amer) 77.2 ml/min BUN/Creatinine Ratio 14.6 (10-20) Glucose 146 H (70-99(Fasting)) mg/dl Calcium 9.1 (8.6-10.3) mg/dl Magnesium 1.9 (1.7-2.4) mg/dl Total Bilirubin 0.3 (0.2-1.0) mg/dl AST 16 (13-39) U/L ALT 18 (7-52) U/L Alkaline Phosphatase 98 (34-104) U/L Troponin I High Sens 5.7 (0-14) pg/ml Total Protein 7.6 (6.0-8.3) gm/dl Albumin 4.4 (3.4-5.0) gm/dl Globulin 3.2 (2.5-4.0) gm/dl Albumin/Globulin Ratio 1.4 (0.9-2) TSH 0.781 (0.300-4.500) uIu/ml Imaging Data Attestation: I personally reviewed and interpreted this imaging study as follows: My Impression: Chest x-ray negative. Airway clear. No pneumothorax. No consolidation. No cardiomegaly or cephalization.. No free air under the diaphragm. No fractures of the skeletal structures. Radiologist's Impression: Chest X-Ray 12/08/23 14:47 XR chest 1V portable HISTORY: afib, SOB COMPARISON: Chest 08/22/2023. FINDINGS: The lungs are clear. Cardiac silhouette is normal in size. No pleural effusions. No pneumothorax. IMPRESSION: No acute process. ACT 112: Negative or not required by law. Electronically signed by: Urbano Bledsoe M.D. 12/08/2023 4:02 PM ECG Data Attestation: I personally reviewed and interpreted this ECG as follows: Additional Comments: EKG #1 at 1451: Atrial fibrillation with a rate of 149. QRS and QTc intervals are within normal limits. No ST elevation or ST depression. EKG #2 status post Cardizem 20 mg IV push: Atrial fibrillation with a rate of 123. QRS and QTc intervals within normal limits. No ST elevation or ST depression. [facility] Narrative 1501: The patient was evaluated in room A12. A complete history and physical exam was performed Cardiac monitoring: An order was placed for continuous cardiac monitoring. The monitor shows a rate of 160 with atiral fibrilation rhythm interpreted by me Cardizem 20 mg was ordered for the patient after large-bore IV access was obtained and was administered. Patient's ventricular rate improved into the 120s. Will start the patient on Cardizem drip as she states last time he took for 3 days for them to try to get her A-fib under control with medications ultimately she had to be cardioverted. Patient states she has been compliant with her Eliquis and metoprolol. 1609: Vital signs stable on Cardizem drip. Labs and imaging within normal limits patient [facility] be [facility]. Impression & Plan Atrial fibrillation with rapid ventricular response Critical Care Time Critical Care Time: Yes Total Critical Care Time: 42 I have personally spent greater than 42 minutes of critical care time in the direct management of this patient. This includes bedside care, interpretation of diagnostic studies, and testing, discussion with consultants, patient, and family members, and other required patient management activities. This 42 minutes is in excess of all separately billable procedures. Discharge Plan Visit Data Chief Complaint: Cardiac Assessment Stated Complaint: AFIB,CHEST PAIN,SOB ED Provider: Jose Gonzalez Discharge Problem: Atrial fibrillation with rapid ventricular response Patient Disposition: Admitted As Inpatient Forms Stand Alone Forms: My [facility] Prescriptions Prescriptions: No Action losartan 50 mg tablet 50 mg PO DAILY atorvastatin 20 mg tablet 20 mg PO DAILY tolterodine 4 mg capsule,extended release 24hr 4 mg PO DAILY pantoprazole 40 mg tablet,delayed release (DR/EC) 40 mg PO DAILY metformin 500 mg tablet extended release 24 hr 2,000 mg PO QPM Ozempic 1 mg/dose (4 mg/3 mL) pen injector 1 mg SUBCUT .WEEKLY Rx Instructions: Mon zinc acetate 50 mg (zinc) Capsule 50 mg PO DAILY Eliquis 5 mg tablet 5 mg PO BID Qty: 60 0RF metoprolol succinate 50 mg Tablet Extended Release 24 Hr 50 mg PO BID Qty: 60 0RF Multivitamin 50 Plus Tablet 1 tab PO DAILY biotin 1 mg Tablet 0 mg PO DAILY Probiotic 3 billion cell Capsule 0 mmu cells PO DAILY Rx Instructions: administer with a meal Referrals Referrals: Rolf Vera MD [Primary Care Provider] -
[2023-12-08] MEDS: SODIUM CHLORIDE 0.9% 1,000 ML IV ONE (15:27)
[2023-12-08] MEDS: dilTIAZem HCL 125 MG in DEXTROSE 5% 100 ML IV SCH (15:27)
[2023-12-08] MEDS: STAT IV Infusion **Titration per Protocol STA (15:30)
[2023-12-08 15:31] LABS: Troponin I High Sensitivity 5.7 pg/ml (0-14)
[2023-12-08 15:39] LABS: INR 0.9 (0.9-1.1); Partial Thromboplastin Time 28 Seconds (21-31)
[2023-12-08 15:41] LABS: Thyroid Stimulating Hormone 0.781 uIu/ml (0.300-4.500)
--- NOTE | 2023-12-08 16:04 | XRay Report ---
XR chest 1V portable HISTORY: afib, SOB COMPARISON: Chest 08/22/2023. FINDINGS: The lungs are clear. Cardiac silhouette is normal in size. No pleural effusions. No pneumot horax. IMPRESSION: No acute process. ACT 112: Negative or not required by law. Electronically signed by: Urbano Bledsoe M.D. 12/08/2023 4:02 PM
--- NOTE | 2023-12-08 16:42 | History & Physical Report ---
Date of Service December 08, 2023 Assessment & Plan (1) Atrial fibrillation with rapid ventricular response: Plan: 63-year-old female with history of atrial fibrillation on Eliquis, diabetes type 2, hypertension, other problems noted below Presenting with chest pain and shortness of breath. Atrial fibrillation rapid ventricular response on p.o. Metoprolol, Eliquis Last admission was on August 2023, successfully cardioverted, echo EF: 55 to 60%, no significant valvular disease continue Cardizem drip Continue usual metoprolol succinate 50 mg twice daily, Eliquis 5 mg p.o. twice daily Roll Tender consulted N.p.o. postmidnight Diabetes type 2 Usually on Ozempic, metformin insulin sliding scale for now Hypertension Continue usual losartan 50 mg p.o. daily DVT prophylaxis already on Eliquis Disposition lives at home History of Present Illness Primary Care Provider: Rolf Vera MD 63-year-old female with history of atrial fibrillation on Eliquis, diabetes type 2, hypertension, other problems noted below Presenting with chest pain and shortness of breath. She was last admitted to [facility] last August 2023 for atrial fibrillation RVR, and was successfully cardioverted. Earlier today, patient started to have palpitations, associated with shortness of breath, dizziness, and nausea today. She was aware that she was having an episode of atrial fibrillation and RVR. At the ER, patient was received with heart rate of 160s, but blood pressure was stable. EKG showed atrial fibrillation RVR Troponin negative Chest x-ray negative She was placed on Cardizem drip, and subsequently the heart rate improved to 110s. Allergies Allergy/AdvReac Type Severity Reaction Status Date / Time No Known Allergies Allergy Unknown Verified 07/13/07 23:14 Home Medications Medication Instructions Recorded Confirmed Type atorvastatin 20 mg tablet 20 mg PO DAILY 08/22/23 12/08/23 History losartan 50 mg tablet 50 mg PO DAILY 08/22/23 12/08/23 History metformin 500 mg tablet,extended 2,000 mg PO QPM 08/22/23 12/08/23 History release 24 hr pantoprazole 40 mg tablet,delayed 40 mg PO DAILY 08/22/23 12/08/23 History release semaglutide 1 mg/dose (4 mg/3 mL) 1 mg subcut .WEEKLY 08/22/23 12/08/23 History subcutaneous pen injector (Ozempic) tolterodine 4 mg capsule,extended 4 mg PO DAILY 08/22/23 12/08/23 History release 24 hr zinc acetate 50 mg (zinc) capsule 50 mg PO DAILY 08/22/23 12/08/23 History apixaban 5 mg tablet (Eliquis) 5 mg PO BID #60 tabs 08/23/23 12/08/23 Rx metoprolol succinate 50 mg 50 mg PO BID #60 tabs 08/25/23 12/08/23 Rx tablet,extended release 24 hr biotin 1 mg tablet 0 mg PO DAILY 12/08/23 12/08/23 History lactobacillus combination no.4 3 0 mmu cells PO DAILY 12/08/23 12/08/23 History billion cell capsule (Probiotic) vanytkangaei-[id number]-[id number] 1 tab PO DAILY 12/08/23 12/08/23 History tablet (Multivitamin 50 Plus tablet) Past Med/Surg History Problem List (Updated 12/09/23 @ 07:25 by TABITHA Linder) Paroxysmal atrial fibrillation Atrial fibrillation, new onset (Acute) Atrial fibrillation with rapid ventricular response (Acute) Centrilobular emphysema T2DM (type 2 diabetes mellitus) HTN (hypertension) Medical History Dizziness Female stress incontinence Tobacco use Surgical History Hx of cystoscopy Hx of bilateral cataract extraction Hx of tubal ligation Hx of hysterectomy Family History Mother Diabetes Social History Smoking Status: Former smoker Tobacco Type: Cigarettes Second Hand Exposure: No; Do You Dip or Chew Tobacco: No; Hx Alcohol Use: No Hx Substance Use: No Preferred Language: Guamanian Communication Ability: Effective Textile Stylist Required: No Beliefs That Will Affect Care: None Current Living Situation: Spouse Current Living Situation Comment: with Other Information That Helps Us Care for You: No Feels Safe at Home: Yes Safety Concerns: Feels Safe At This Time Assistive Devices: None Review of Systems Review of Systems: all noted and negative except for above Physical Exam Physical Exam: General- oriented x 3, not in distress, speaks in sentences with no effort or accessory muscle use Eyes- anicteric Neck- no JVD Lungs- clear breath sounds bilaterally, no rales/wheezes Heart- mildly tachycardic, irregularly irregular rhythm; no murmurs Abdomen- normal bowel sounds, nondistended, soft, nontender Extremities- no pretibial edema, no calf tenderness Neuro- alert, oriented x 3; no gross focal neurologic deficits Skin- warm & dry Results & Data Results & Data Vital Signs (Past 12 Hours) Vital Signs Temp Pulse Resp BP Pulse Ox O2 Del Method 12/08/23 16:21 112 H 16 135/63 98 Room Air 12/08/23 15:54 104 H 12 141/79 H 99 Room Air 12/08/23 15:51 99 H 16 118/79 98 Room Air 12/08/23 15:45 120/80 12/08/23 15:40 124/60 12/08/23 15:15 117 H 14 97 12/08/23 15:08 146 H 12/08/23 15:06 160 H 17 98 12/08/23 15:03 99 Room Air 12/08/23 14:44 37.2 C 112 H 16 123/73 99 Room Air all noted and reviewed including below
[2023-12-08] MEDS ORDERED: STAT IV Infusion **Titration per Protocol STA (20:52)
[2023-12-08] MEDS ORDERED: GLUCOSE 40% GEL 15 GM TUBE PO PRN (20:52)
[2023-12-08] MEDS ORDERED: GLUCAGON FOR INJ 1 MG VIAL SQ PRN (20:52)
[2023-12-08] MEDS ORDERED: GLUCOSE 10 TAB/TUBE PO PRN (20:52)
[2023-12-08] MEDS ORDERED: ACETAMINOPHEN 325 MG TAB PO PRN (20:52)
[2023-12-08] MEDS ORDERED: dilTIAZem HCL 125 MG in DEXTROSE 5% 100 ML IV SCH (20:52)
[2023-12-08] MEDS ORDERED: DEXTROSE 50% 50 ML SYRINGE IV PRN (20:52)
[2023-12-08] MEDS ORDERED: CARBOHYDRATES FOR HYPOGLYCEMIA PO PRN (20:52)
[2023-12-08] MEDS: INSULIN ASPART PER UNIT CHARGE SC SCH (21:20)
[2023-12-08] MEDS: METOPROLOL SUCC 50MG EXT REL TAB PO SCH (21:59)
[2023-12-08] MEDS: APIXABAN 5 MG TABLET PO SCH (21:59)
--- OUTSIDE RECORDS SUMMARY | 2023-12-08 22:21 | External Medical Summary | Summary of Care ---
Author Name Unknown Organization [facility] Address [address] [facility] [place] [address] Phone [phone] Care Team Providers Care Clearing Hand Name Role Phone Rolf Vera MD Primary Care Provide r Encounter Details Date Type Department Care Team (Late st Contact Info) Description 09/04/2023 Orders Only Family Medicine [address] [place] [address] Rolf Vera MD [address] [place] [address] [place] [address] Allergies No known active allergiesdocumented as of this encounter (statuses as of 09/04/2023) Medications Medication Sig Dispensed Refills Start Date End Date Status MULTIVITAMIN/IRON PO TABS Take by mouth at bedtime . 100 3 10/21/2008 Active ZINC 10 MG MT LOZG Apply to the mouth or throat at bedtime . 0 Active Turmeric 500 MG Oral Capsule Take 2 Capsules by mouth in the morning. 0 Active Diclofenac Sodium 1 % External Gel (Voltaren)Indications :Osteoarthritis of both hips, unspecified osteoarthritis type PLACE 2 G TOPICALLY ON THE SKIN 2 TIMES A DAY AREA DIRECTED. 100 g 1 03/10/2021 Active True Metrix Go Glucose Meter w/Device KitIndications:Type 2 diabetes mellitus with hemoglobin A1c goal of less than 7.0% ([facility]) Use as directed . Check [...] EVERY DAY 90 Tablet 3 02/27/2023 Active Tolterodine Tartrate ER 4 MG Oral [...] a week. 9 mL 1 08/02/2023 Active Metoprolol Succinate ER 50 MG Oral Tablet Extended Release 24 Hour (toPROL XL) Take 1 Tablet by mouth in the morning and 1 Tablet before bedtime. 0 08/25/2023 Active Apixaban 5 MG Oral Tablet (Eliquis) Take 1 Tablet by mouth in the morning and 1 Tablet before bedtime. 0 08/23/2023 Active Losartan Potassium 50 MG Oral Tablet (Cozaar)Indications:H TN, goal below 130/80 Take 1 Tablet by mouth in the morning. 90 Tablet 3 09/04/2023 Active documented as of this encounter (statuses as of 09/04/2023) Active Problems Problem Noted Date Diagnosed Date COPD, group A, by GOLD 2017 classification 08/20 Overview: Per COPD GOLD Classification Centrilobular emphysema 01/30/2023 History of hysterectomy 04/17/2022 [...] as of this encounter (statuses as of 09/04/2023) Resolved Problems Problem Noted Date Diagnosed Date Resolved Date Encounter for examination fo r normal comparison and control in clinical research program 09/13/2012 12/19/2012 Overview: Diagnosis changed due to Research Module. Go to Snapshot for study details. Lateral epicondylitis 08/09/20012011 Overview: right lateral epicondylitis started throwing candy out a window during a parade. Starting PT at [facility] Lateral epicondylitis 2010 GENERALIZED ANXIETY DIS 03/10 documented as of this encounter (statuses as of 09/04/2023) Immunizations Name Administration Dates Next Due COVID-19 [...] Date Smoking Tobacco: Every Day Cigarettes 1 47.4 Started: 1974 Smokeless Tobacco: Never Comments:started age [...] Care Team (Late st Contact Info) Description 09/13/2023 11:30 AM EST Office Visit Cardiology, [facility] [address] [facility] [place] [address] Chelsi Tuttle CRNP [address] [facility] [place] [address] 10/10/2023 9:00 AM EDT Office Visit Family Medicine [address] [place] [phone] Rolf Vera MD [address] [place] [address] [place] [id number] 05/07/2024 10:00 AM EDT Imaging Radiology [address] [place] [address] Pending Results Name Type Priority Associated Diagnoses Date /Time OUTSIDE LAB-CORONAVIRUS (COVID-19) Lab Routine 08/22/2023 Scheduled Procedures Name Priority Associated Diagnoses Date/Ti me COLONOSCOPY FLEXIBLE PROXIMA L DIAGNOSTIC Recall Encounter for screening colonoscopy Health Maintenance Due Date Last Done Comments DISCUSS TOBACCO CESSATION (REFER TO SMARTSET #[id number]) 1962 Pneumococcal Vaccine: Pediatrics (0 to 5 Years) and At-Risk Patients (6 to 64 Years) (1 of 2 - PCV) 1968 HIV Screening 1977 Alpha-1 Antitrypsin 1980 Cologuard 2007 Sigmoidoscopy 2007 Fecal Occult Blood Test 10/05/2017 10/05/2016 Zoster Vaccines (2 of 2) 06/02/2020 04/07/2020 Depression Screening 01/26/2023 01/26/2022 *COPD SEVERITY VERIFIED BY PFT 02/02/2023 COVID-19 Vaccine ( - season) 2023 11/20/2020, 10/30/2020 Influenza Vaccine (FLU shot) (#1) 2023 03/24/2020, 03/10/2019, 10/08/2017 (Refused), Additional history exists HbA1c 02/16/2024 08/18/2023, 01/07, 08/05/2022, Additional history exists Mammogram 04/26/2024 04/26/2023, 04/08, 04/18/2021, Additional history exists Diabetic Eye Exam 05/17/2024 05/17/2023, , 06/07/2022, Additional history exists Diabetic Foot Exam 08/02/2024 08/02/2023, 0 08/03/2022, 07/27/2021, Additional history exists Albumin/Creatinine Ratio 08/18/2024 024, 02/03/2023, 08/05/2022, Additional history exists GFR 08/18/2024 08/18/2023, 01/07, 08/05/2022, Additional history exists O2 ASSESSMENT COMPLETED IN PAST YEAR FOR COPD 09/04/2024 09/04/2023 Colonoscopy 01/30/2028 01/29/2018, 01/29/2018 Colorectal Cancer Screening 01/30/2028 Lipid Panel 08/18/2028 08/18/2023, 01/07, 08/06/2021, Additional history exists DTaP,Tdap,and Td Vaccines (3 - Td or Tdap) 10/08/2028 10/08/2018, 11/20/2007 LUNG CANCER SCREENING - USE SMARTSET [id number] Completed 01/11/2023, 12/15/2020 GARDASIL-HPV IMMUNIZATION SERIES Aged Out No longer eligible based on patient's age to complete this topic Hepatitis B Aged Out No longer eligi ble based on patient's age to complete this topic MENINGOCOCCAL (MENACTRA/MENVEO) Aged Out No longer eligible based on patient's age to complete this topic documented as of this encounter Medical Devices Implanted Type Area Product Safety Engineer Device Identifier Shelf Expiration Date Model / Serial / Lot Lens Intraoc 18.5 - [id number] - [id number] Implanted:Qty: 1 on 01/10/2022 by Chris Umana MD at OR [facility] Left: Eye [employer] 08/08/2026 [id number] / [id number] / [id number] Lens Intraoc 18.5 - [id number] - [id number] Implanted:Qty: 1 on 01/24/2022 by Chris Umana MD at OR [facility] Right: Eye [employer]OM[employer] 10/06/2026 [id number] / [id number] / [id number] documented as of this encounter Care Teams Clearing Hand Relationship Specialty Start Date End Date Rolf Vera MD [address] [place] [address] [place] [address] PCP - General Family Medicine 08/27/19 documented as of this encounter
--- OUTSIDE RECORDS SUMMARY | 2023-12-08 22:21 | External Medical Summary | Summary of Care ---
Author Name Unknown Organization [facility] Address [address] [facility] [place] [address] Phone [phone] Care Team Providers Care Operations Program Manager Name Role Phone Rolf Vera MD Primary Care Provide r Encounter Details Date Type Department Care Team (Late st Contact Info) Description 08/24/2023 Result Scan Unspecified Department Angel Reyes MD [address] [place] [address] <No scans attached> Allergies No known active allergiesdocumented as of this encounter (statuses as of 09/14/2023) Medications Medication Sig Dispensed Refills Start Date [...] as of this encounter (statuses as of 09/14/2023) Active Problems Problem Noted Date Diagnosed Date [...] as of this encounter (statuses as of 09/14/2023) Resolved Problems Problem Noted Date Diagnosed Date Resolved Date Encounter for examination fo r normal comparison and control in clinical research program 09/13/2012 12/19/2012 Overview: Diagnosis changed due to Research Module. Go to Snapshot for study details. Lateral epicondylitis 08/09/20012011 Overview: right lateral epicondylitis started throwing candy out a window during a parade. Starting PT at [facility] Lateral epicondylitis 2010 GENERALIZED ANXIETY DIS 03/10 documented as of this encounter (statuses as of 09/14/2023) Immunizations Name Administration Dates Next Due COVID-19 [...] 9:00 AM EDT Office Visit Family Medicine [address] [place] [address] Rolf Vera MD [address] [place] [address] [place] [address] 01/03/2024 11:30 AM EDT Office Visit Cardiology, [facility] [address] [place] [address] Chelsi Tuttle CRNP [address] [place] [address] 05/07/2024 10:00 AM EDT Imaging Radiology [address] [place] [address] Scheduled Procedures Name Priority Associated Diagnoses Date/Ti me COLONOSCOPY FLEXIBLE PROXIMA L DIAGNOSTIC Recall Encounter for screening colonoscopy Health Maintenance Due Date Last Done Comments DISCUSS TOBACCO CESSATION (REFER TO SMARTSET #6520) 1960 Pneumococcal Vaccine: Pediatrics (0 to 5 [...] 11/20/2007 LUNG CANCER SCREENING - USE SMARTSET 87293 Completed 01/11/2023, 12/15/2020 GARDASIL-HPV IMMUNIZATION SERIES Aged Out No longer eligible based on patient's age to complete this topic Hepatitis B Aged Out No longer eligi ble based on patient's age to complete this topic MENINGOCOCCAL (MENACTRA/MENVEO) Aged Out No longer eligible based on patient's age to complete this topic documented as of this encounter Medical Devices Implanted Type Area Residential Concierge Device Identifier Shelf Expiration Date Model / Serial / Lot Lens Intraoc 18.5 - [id number] - [id number] Implanted:Qty: 1 on 01/10/2022 by Chris Umana MD at OR [facility] Left: Eye BAUSCH [employer] LOMB 08/08/2026 [id number] / [id number] / [id number] Lens Intraoc 18.5 - [id number] - [id number] Implanted:Qty: 1 on 01/24/2022 by Chris Umana MD at OR [facility] Right: Eye BAUSCH & LOMB 10/06/2026 [id number] / [id number] / [id number] documented as of this encounter Procedures Procedure Name Priority Date/Time Associated Diagnosis Comments CARDIOLOGY SCANNED RESULT 08/24/2023 documented in this encounter Results * CARDIOLOGY SCANNED RESULT (08/24/2023) 08/24/2023 Angel Reyes MD OTHER documented in this encounter Care Teams Operations Program Manager Relationship Specialty Start Date End Date Rolf Vera MD [address] [place] [address] [place] [phone] PCP - General Family Medicine 08/27/19 documented as of this encounter
--- OUTSIDE RECORDS SUMMARY | 2023-12-08 22:21 | External Medical Summary | Summary of Care ---
Author Name Unknown Organization [facility] Address [address] [facility] [address] Phone [phone] Care Team Providers Care Pipe Fitter Ammonia Name Role Phone Rolf Vera MD Primary Care Provide r Reason for Visit * Reason Comments Re-Check Encounter Details Date Type Department Care Team (Latest Contact Info) Description 10/10/2023 9:00 AM EDT Office Visit Family Medicine [address] [address] Rolf Vera MD [address] [place] [address] [place] [address] Atrial fibrillation, unspecified type ([facility])*; Abnormal TSH; Type 2 diabetes mellitus with hemoglobin A1c goal of less than 7.0% ([facility]); COPD, group A, by GOLD 2017 classification ([facility]) Allergies No known active allergiesdocumented as of this encounter (statuses as of 10/10/2023) Medications Medication Sig Dispensed Refills Start Date End Date Status MULTIVITAMIN/IRON PO TABS Take by mouth at bedtime . 100 3 10/21/2008 Active ZINC 10 MG MT LOZG Apply to the mouth or throat at bedtime . 0 Active Diclofenac Sodium 1 % External [...] Active Losartan Potassium 50 MG Oral Tablet (Cozaar)Indications: HTN, goal below 130/80 Take 1 Tablet by mouth in the morning. 90 Tablet 3 09/04/2023 Active Apixaban 5 MG Oral Tablet (Eliquis) Take 1 Tablet by mouth in the morning and 1 Tablet before bedtime. 60 Tablet 2 09/19/2023 Active Metoprolol Succinate ER 50 MG Oral Tablet Extended Release 24 Hour (toPROL XL) Take 1 Tablet by mouth in the morning and 1 Tablet before bedtime. 60 Tablet 2 09/19/2023 Active Turmeric 500 MG Oral Capsule Take 2 Capsules by mouth in the morning. 0 4 Discontinue d(Medicatio n List Clean Up) Aspirin 325 MG Oral Tablet (Cleopatra Aspirin) Take 2 Tablets by mouth every 6 hours as needed. 0 4 Discontinue d(Medicatio n List Clean Up) Ibuprofen 200 MG Oral Capsule Take 2 Capsules by mouth every 6 hours as needed. 0 4 Discontinue d(Medicatio n List Clean Up) documented as of this encounter (statuses as of 10/10/2023) Active Problems Problem Noted Date Diagnosed Date Atrial fibrillation 10/10/2023 COPD, group A, by GOLD 2017 classification [...] as of this encounter (statuses as of 10/10/2023) Resolved Problems Problem Noted Date Diagnosed Date [...] as of this encounter (statuses as of 10/10/2023) Immunizations Name Administration Dates Next Due COVID-19 mRNA, LNP-s, No Pre serve, 2-Dose Series ([employer]) 11/20/2020,10/30/2020 PPD 04/02/2012 Pneumococcal Polysaccharide PPV23 (Pneumovax) [...] Date Smoking Tobacco: Every Day Cigarettes 1 47.5 Started: 1974 Smokeless Tobacco: Never Comments:started age [...] Sign Reading Time Taken Comments Blood Pressure 138/70 10/10/2023 8:41 AM EDT Pulse 90 10/10/2023 8:41 AM EDT Temperature 35.8 C (96.5 F) 10/10/2023 8:41 AM ED T Respiratory Rate 16 10/10/2023 8:41 AM EDT Oxygen Saturation 98% 10/10/2023 8:41 AM EDT Inhaled Oxygen Concentration - - Weight 74.4 kg (164 lb) 10/10/2023 8:41 AM EDT Height 165.1 cm (5' 5") 10/10/2023 8:41 AM EDT Body Mass Index 27.29 10/10/2023 8:41 AM EDT documented in this encounter Progress Notes * Rolf Vera MD - 10/10/2023 8:55 AM EDT Subjective: HPI: Mireya Mcqueen is a 63 year old female with hx of HTN, DMII, stress Urinary incontinence, HLD, lung nodule, hx of hysterectomy and BSO, Emphysema, recent dx of Afib s/p cardioversion seen for Afib s/p cardioversion: - currently on eliquis 5mg BID, Metoprolol ER 50mg BID - have not smoked since the hospitalization - denied any palpitation - denied any dizziness with exertion - sometimes get fatigue HTN: - on losartan 50mg daily and metoprolol ER 50mg BID - pt does not drink enough water Patient Active Problem List Diagnosis Code ADVANCE DIRECTIVE INFORMATION Lumbago M54.50 Need for prophylactic hormone replacement therapy (postmenopausal) Z79.890 Menopause Z78.0 Female stress incontinence N39.3 Tobacco abuse disorder Z72.0 Diabetes mellitus without complication (HCC) E11.9 Type 2 diabetes mellitus with hemoglobin A1c goal of less than 7.0% (HCC) E11.9 HTN, goal below 130/80 I10 History of hysterectomy Z90.710 Centrilobular emphysema (HCC) J43.2 COPD, group A, by GOLD 2017 classification (HCC) J44.9 Atrial fibrillation (HCC) I48.91 Current Outpatient Medications Medication Sig Dispense Refill MULTIVITAMIN/IRON PO TABS Take by mouth at bedtime . 100 3 ZINC 10 MG MT LOZG Apply to the mouth or throat at bedtime . Diclofenac Sodium 1 % External Gel (Voltaren) PLACE 2 G TOPICALLY ON THE SKIN 2 TIMES A DAY AREA ASDIRECTED. 100 g 1 True Metrix Go Glucose Meter w/Device Kit Use as directed . Check fasting glucose 1-2x/week 1 Kit 0 ReliOn Lancets Micro-Thin 33G Use to test twice daily. E11.9 100 Each 1 Acetaminophen 500 MG Oral Tablet (Tylenol) Take 2 Tablets by mouth every 6 hours as needed. metFORMIN HCl ER 500 MG Oral Tablet Extended Release 24 Hour (Glucophage XR) TAKE 4 TABLETS BY MOUTH EVERY DAY 360 Tablet 3 Atorvastatin Calcium 20 MG Oral Tablet (Lipitor) TAKE 1 TABLET BY MOUTH EVERY DAY 90 Tablet 3 Tolterodine Tartrate ER 4 MG Oral Capsule [...] skin once a week. 9 mL 1 Losartan Potassium 50 MG Oral Tablet (Cozaar) Take 1 Tablet by mouth in the morning. 90 Tablet 3 Apixaban 5 MG Oral Tablet (Eliquis) Take 1 Tablet by mouth in the morning and 1 Tablet before bedtime. 60 Tablet 2 Metoprolol Succinate ER 50 MG Oral Tablet Extended Release 24 Hour (toPROL XL) Take 1 Tablet by mouth in the morning and 1 Tablet before bedtime. 60 Tablet 2 No current facility-administered medications for this visit. Past Medical History: Diagnosis Date Closed fracture of carpal bone 12/16/09 right wrist Female stress incontinence Generalized anxiety disorder 2000 Lateral epicondylitis 08/09/01 right lateral epicondylitis started throwing candy out a window during a parade. Starting PT at [facility] Need for hepatitis C screening test 03/20/14 [...] by Mary Jo Suazo MD at ENDOSCOPY [facility] CYSTOSCOPY 09/27/2011 coapetite injection HC [place] [...] performed by Chris Umana MD at OR [facility] REMOVE CATARACT, INSERT LENS PROSTH Right 01/24/2022 RIGHT EXTRACAPSULAR CATARACT REMOVAL WITH INTRAOCULAR LENS performed by Chris Umana MD at OR [facility] US PELVIS TRANS-ABDOMINAL 01/03/2007 normal VAGINAL HYSTERECTOMY, W/TUBE/OVARY 07/15/2007 vag hyst/BSO/Malin, cystotomy repair - Stuck Review of patient's allergies indicates: No Known Allergies Family History Problem Relation Age of Onset Diabetes Mother Heart Disorder Father Breast Cancer Aunt (Maternal) Social History Tobacco Use Smoking status: Every Day Current packs/day: 1.00 Average packs/day: 1 pack/day for 47.5 years (47.5 ttl pk-yrs) Types: Cigarettes Start date: 1974 Smokeless tobacco: Never Tobacco comments: started age 16, restarted 01/2009 Substance Use Topics Alcohol use: No Vaping/E-Cigarette Use Vaping/E-Cigarette Substances Vaping/E-Cigarette Devices ROS: -Per HPI OBJECTIVE: BP 138/70 | Pulse 90 | Temp 35.8 C (96.5 F) | Resp 16 | Ht 1.651 m (5' 5") | Wt 74.4 kg (164 lb) | LMP 06/15/2007 | SpO2 98% | BMI 27.29 kg/m | BSA 1.85 m PHYSICAL EXAM: Vitals are reviewed General:. NAD, well developed HEENT:. Normal Conjunctiva, EOMI Cardiac:. Normal S1, S2, no murmur Lungs:. CTA, no wheezing or crackles MSK:. Normal gait Psych:. AAOx3, normal affect ASSESSMENT/PLAN: Atrial fibrillation, unspecified type (HCC) (Primary) - doing well on current meds - HR is normal Bp Is better as well - CBC WITH WBC DIFFERENTIAL Abnormal TSH - TSH WITH FREE T4 IF INDICATED Type 2 diabetes mellitus with hemoglobin A1c goal of less than 7.0% (HCC) - doing well on current meds COPD, group A, by GOLD 2017 classification (HCC) - quit smoking Follow Up: Return in about 4 months (around 02/09/2024). Rolf Vera MD Family medicine, [address] [address] documented in this encounter Nursing Notes * Carole Meeks RN - 10/10/2023 8:45 AM EDT Pt here for check up, no new concerns documented in this encounter Plan of Treatment Upcoming Encounters Date Type Department Care Team (Narinder Contact Info) Description 01/03/2024 10:00 AM EDT Office Visit Cardiology, [facility] [address] [place] [address] Shukri Sow DO [address] [place] [address] 02/21/2024 10:40 AM EDT Office Visit Family Medicine [address] [place] [address] Rolf Vera MD [address] [place] [address] [place] [address] 05/07/2024 10:00 AM EDT Imaging Radiology [address] [place] [address] Scheduled Orders Name Type Priority Associated Diagnoses Orde r Schedule TSH WITH FREE T4 IF INDICATED Lab Routine Abnormal TSH Ordered: 10/10/2023 CBC WITH WBC DIFFERENTIAL Lab Routine Atrial fibrillation, unspecified type (HCC) Ordered: 10/10/2023 Scheduled Procedures Name Priority Associated Diagnoses Date/Ti me COLONOSCOPY FLEXIBLE PROXIMA L DIAGNOSTIC Recall Encounter for screening colonoscopy Health Maintenance Due Date Last Done Comments DISCUSS TOBACCO CESSATION (REFER TO SMARTSET #4659) 1960 Pneumococcal Vaccine: Pediatrics (0 to 5 Years) and At-Risk Patients (6 to 64 Years) (1 of 2 - PCV) 1968 HIV Screening 1977 Alpha-1 Antitrypsin 1980 Cologuard 2007 Sigmoidoscopy 2007 Fecal Occult Blood Test 10/05/2017 10/05/2016 Zoster Vaccines (2 of 2) 06/02/2020 04/07/2020 Depression Screening 01/26/2023 01/26/2022 *COPD SEVERITY VERIFIED BY PFT 02/02/2023 COVID-19 Vaccine ( season) 2023 11/20/2020, 10/30/2020 HbA1c 02/16/2024 08/18/2023, 0703/2023, 08/05/2022, Additional history exists Influenza Vaccine (FLU shot) (Season Ended) 2024 03/24/2020, 03/10/2019, 10/08/2017 (Refused), Additional history exists Mammogram 04/26/2024 04/26/2023, 04/08, 04/18/2021, Additional history exists Diabetic Eye Exam 05/17/2024 05/17/2023, , 06/07/2022, Additional history exists Diabetic Foot Exam 08/02/2024 08/02/2023, 0 08/03/2022, 07/27/2021, Additional history exists Albumin/Creatinine Ratio 08/18/2024 024, 02/03/2023, 08/05/2022, Additional history exists GFR 08/18/2024 08/18/2023, 01/07, 08/05/2022, Additional history exists O2 ASSESSMENT COMPLETED IN PAST YEAR FOR COPD 10/09/2024 10/10/2023 Colonoscopy 01/30/2028 01/29/2018, 01/29/2018 Colorectal Cancer Screening 01/30/2028 Lipid Panel 08/18/2028 08/18/2023, 01/07, 08/06/2021, Additional history exists DTaP,Tdap,and Td Vaccines (3 - Td or Tdap) 10/08/2028 10/08/2018, 11/20/2007 LUNG CANCER SCREENING - USE SMARTSET 31291 Completed 01/11/2023, 12/15/2020 GARDASIL-HPV IMMUNIZATION SERIES Aged Out No longer eligible based on patient's age to complete this topic Hepatitis B Aged Out No longer eligi ble based on patient's age to complete this topic MENINGOCOCCAL (MENACTRA/MENVEO) Aged Out No longer eligible based on patient's age to complete this topic documented as of this encounter Medical Devices Implanted Type Area Highwall Drill Operator Device Identifier Shelf Expiration Date Model / Serial / Lot Lens Intraoc 18.5 - [id number] - [id number] Implanted:Qty: 1 on 01/10/2022 by Chris Umana MD at OR [facility] Left: Eye BAUSCH [employer] LOMB 08/08/2026 [id number] / [id number] / [id number] Lens Intraoc 18.5 - [id number] - [id number] Implanted:Qty: 1 on 01/24/2022 by Chris Umana MD at [facility] Right: Eye BAUSCH & LOMB 10/06/2026 [id number] / [id number] / [id number] documented as of this encounter Visit Diagnoses Diagnosis Atrial fibrillation, unspecified type (HCC)- Primary Abnormal TSH Other abnormal clinical finding Type 2 diabetes mellitus with hemoglobin A1c goal of less than 7.0% (HCC) COPD, group A, by GOLD 2017 classification ([facility]) documented in this encounter Care Teams Pipe Fitter Ammonia Relationship Specialty Start Date End Date Rolf Vera MD [address] [place] [address] [place] [address] PCP - General Family Medicine 08/27/19 documented as of this encounter
--- OUTSIDE RECORDS SUMMARY | 2023-12-08 22:21 | External Medical Summary | Summary of Care ---
Author Name Unknown Organization [facility] Address [address] [facility] [place] [address] Phone [phone] Care Team Providers Care Senior Ui Software Engineer Name Role Phone Rolf Vera MD Primary Care Provide r Reason for Visit * Reason Onset Date Comments Medication Refill 09/03/2023 Encounter Details Date Type Department Care Team (Late st Contact Info) Description 09/03/2023 Refill Family Medicine [address] [address] Rolf Vera MD [address] [place] [address] [place] [address] HTN, goal below 130/80 Allergies No known active allergiesdocumented as of [...] Hour (Glucophage XR)Indications:Diabe karina mellitus without complication ([facility]) TAKE 4 TABLETS BY MOUTH EVERY DAY [...] the morning. 90 Tablet 3 09/04/2023 Active Losartan Potassium 50 MG Oral Tablet (Cozaar)Indications: HTN, goal below 130/80 Take 1 Tablet by mouth in the morning. 30 Tablet 3 08/10/2023 4 Discontinue d(Refill) documented as of this [...] mRNA, LNP-s, No Pre serve, 2-Dose Series ([employer]) 11/20/2020,10/30/2020 PPD 04/02/2012 Pneumococcal Polysaccharide PPV23 (Pneumovax) [...] Telephone Encounter - Rolf Vera MD - 09/04/2023 7:31 AM EST Signed Prescriptions: Disp Refills Losartan Potassium 50 MG Oral Tablet (Coza*90 Tab*3 Sig: Take 1 Tablet by mouth in the morning. Authorizing Provider: ROLF VERA * Telephone Encounter - Carole Meeks RN - 09/03/2023 2:42 PM ESTPending Prescriptions: Disp Refills Losartan Potassium 50 MG Oral Tablet (Coza*90 Tab*3 Sig: Take 1 Tablet by mouth in the morning. * Telephone Encounter - Monie Schaefer OSA - 09/03/2023 1:42 PM EST Did you pend patient's preferred pharmacy and medication before forwarding?yes Pharmacy: 90 day request Pending Prescriptions: Disp Refills Losartan Potassium 50 MG Oral Tablet (Coz*90 Tab*3 Sig: Take 1 Tablet by mouth in the morning. Last Visit: 08/02/2023 (in office), Visit date not found (telemedicine) Next Visit: 09/04/2023 If no future appointments scheduled, and last appointment is greater than a year ago, please schedule patient for a follow-up appointment Last date the medication was ordered: 08/10/2023 Is this request for a controlled substance?No Urine Drug Screen:No results found for this or any previous visit. Patient Phone Numbers Labs: Lab Results Component Value Date/Time CREAT 0.73 08/18/2023 12:00 AM CREAT 0.6 02/28/2011 11:00 AM POTASSIUM 4.7 08/18/2023 12:00 AM POTASSIUM 4.4 02/28/2011 11:00 AM TSH 0.421 (A) 08/18/2023 12:00 AM TSH 0.39 11/20/2007 02:21 PM LDLCALC 84 08/18/2023 12:00 AM LDLCALC 134 (H) 10/08/2017 09:23 AM LDLDIRECT 161 (H) 09/18/2012 11:02 AM ALT 25 02/03/2023 12:00 AM ALT 11 09/18/2012 11:02 AM HGBA1C 6.6 (A) 08/18/2023 12:00 AM documented in this encounter Plan of Treatment Upcoming Encounters Date Type Department Care Team (Late st Contact Info) Description 09/04/2023 9:00 AM EST Office Visit [facility] Medicine [address] [place] [address] Rolf Vera MD [address] [place] [address] [place] [address] 10/10/2023 9:00 AM EDT Office Visit Family Medicine [address] [place] [address] Rolf Vera MD [address] [place] [address] [place] [address] 05/07/2024 10:00 AM EDT Imaging Radiology [address] [place] [address] Scheduled Procedures Name Priority Associated Diagnoses Date/Ti me COLONOSCOPY FLEXIBLE PROXIMA L DIAGNOSTIC Recall Encounter for screening colonoscopy Health Maintenance Due Date Last Done Comments DISCUSS TOBACCO CESSATION (REFER TO SMARTSET #0437) 1960 Pneumococcal Vaccine: Pediatrics (0 to 5 [...] 11/20/2007 LUNG CANCER SCREENING - USE SMARTSET [id number] Completed 01/11/2023, 12/15/2020 GARDASIL-HPV IMMUNIZATION SERIES Aged Out No longer eligible based on patient's age to complete this topic Hepatitis B Aged Out No longer eligi ble based on patient's age to complete this topic MENINGOCOCCAL (MENACTRA/MENVEO) Aged Out No longer eligible based on patient's age to complete this topic documented as of this encounter Medical Devices Implanted Type Area Chain Puller Device Identifier Shelf Expiration Date Model / Serial / Lot Lens Intraoc 18.5 - [id number] - [id number] Implanted:Qty: 1 on 01/10/2022 by Chris Umana MD at OR [facility] Left: Eye BAUSCH [employer] LOMB 08/08/2026 [id number] / [id number] / [id number] Lens Intraoc 18.5 - [id number] - [id number] Implanted:Qty: 1 on 01/24/2022 by Chris Umana MD at OR [facility] Right: Eye BAUSCH [employer] LOMB 10/06/2026 [id number] / [id number] / [id number] documented as of this encounter Visit Diagnoses Diagnosis HTN, goal below 130/80 Unspecified essential hypertension documented in this encounter Care Teams Senior Ui Software Engineer Relationship Specialty Start Date End Date Rolf Vera MD [address] [place] [address] [place] [phone] PCP - General Family Medicine 08/27/19 documented as of this encounter
--- OUTSIDE RECORDS SUMMARY | 2023-12-08 22:21 | External Medical Summary | Summary of Care ---
Author Name Unknown Organization [facility] Address [address] [address] Phone [phone] Care Team Providers Care Warehousing Technician Name Role Phone Rolf Vera MD Primary Care Provide r Reason for Referral * Evaluate & Treat - Unlimited Visits (Within 30 days (routine)) - Pending Review Specialty Diagnoses / Procedures Referred By Sarita t Referred To Contact Cardiovascular Medicine / Cardiology Diagnoses Atrial fibrillation, unspecified type (HCC) Rolf Vera MD [address] [place] [address] [place] [address] Referral ID Status Reason Start Date Expiration Date Visits Requested Visits Authorized [id number] Pending Review Specialty Services Required 09/04/[phone] Question Answer Referral Priority Within 30 days (routine) Where should this appointment be scheduled? [facility] To which of the following clinics are you referring your patient? General Cardiology Clinic Reason for Visit * Reason Onset Date Comments Hospital Follow-Up Hospital Follow-Up 09/04/2023 Encounter Details Date Type Department Care Team (Late st Contact Info) Description 09/04/2023 9:00 AM EST Office Visit Family Medicine [address] [place] [phone] Rolf Vera MD [address] [place] [address] [place] [address] Atrial fibrillation, unspecified type (HCC)*; HTN, goal below 130/80; Hospital discharge follow-up Allergies No known active allergiesdocumented as of [...] hemoglobin A1c goal of less than 7.0% ([facility]) Use as directed . Check fasting glucose 1-2x/week 1 Kit 0 11/21/2021 Active ReliOn Lancets Micro-Thin 33GIndications:Type 2 diabetes mellitus with hemoglobin A1c goal of less than 7.0% ([facility]) Use to test twice daily. E11.9 100 [...] the morning. 90 Tablet 3 09/04/2023 Active Cyclobenzaprine HCl 10 MG Oral Tablet (Flexeril)Indication s:Chronic bilateral low back pain without sciatica TAKE 1 TABLET BY MOUTH EVERYDAY AT BEDTIME 30 Tablet 0 05/16/2023 4 Discontinue d(Medicatio n List Clean Up) [...] during a parade. Starting PT at [facility] Lateral epicondylitis 2010 GENERALIZED ANXIETY DIS 03/10 [...] Sign Reading Time Taken Comments Blood Pressure 128/68 09/04/2023 8:40 AM EST Pulse 77 09/04/2023 8:40 AM EST Temperature 35.4 C (95.7 F) 09/04/2023 8:40 AM ES T Respiratory Rate - - Oxygen Saturation 96% 09/04/2023 8:40 AM EST Inhaled Oxygen Concentration - - Weight 72 kg (158 lb 12.8 oz) 09/04/2023 8:40 AM EST Height - - Body Mass Index 26.43 01/30/2023 9:34 AM EDT documented in this encounter Progress Notes * Rolf Vera MD - 09/04/2023 8:59 AM EST Subjective: HPI: Mireya Mcqueen is a 63 year old female with hx of HTN, DMII, stress Urinary incontinence, HLD, lung nodule, hx of hysterectomy and BSO, Emphysema, recent dx of Afib seen for Pt was admitted to the hospital from 08/22-08/25 1.Afib with RVR: - Echo: 55-60%, mild LVH - s/p JEREMY with electrical cardioversion - discharged on metoprolol and eliquis 2.UTI: discharged on augmentin Today: - doing well - does not have cardiology appt yet - denied any gum bleeding - tolerating metoprolol well - pt stopped smoking - denied any dizziness or CP or SOB or syncope Patient Active Problem List Diagnosis Code ADVANCE DIRECTIVE INFORMATION Lumbago M54.50 Need for prophylactic hormone replacement therapy (postmenopausal) Z79.890 Menopause Z78.0 Female stress incontinence N39.3 Tobacco abuse disorder Z72.0 Diabetes mellitus without complication (HCC) E11.9 Type 2 diabetes mellitus with hemoglobin A1c goal of less than 7.0% (HCC) E11.9 HTN, goal below 130/80 I10 History of hysterectomy Z90.710 Centrilobular emphysema ([facility]) J43.2 COPD, group A, by GOLD 2017 classification ([facility]) J44.9 Current Outpatient Medications Medication Sig Dispense Refill MULTIVITAMIN/IRON PO TABS Take by mouth at bedtime . 100 3 ZINC 10 MG MT LOZG Apply to the mouth or throat at bedtime . Turmeric 500 MG Oral Capsule Take 2 Capsules by mouth in the morning. Diclofenac Sodium 1 % External Gel (Voltaren) [...] skin once a week. 9 mL 1 Metoprolol Succinate ER 50 MG Oral Tablet Extended Release 24 Hour (toPROL XL) Take 1 Tablet by mouth in the morning and 1 Tablet before bedtime. Apixaban 5 MG Oral Tablet (Eliquis) Take 1 Tablet by mouth in the morning and 1 Tablet before bedtime. Losartan Potassium 50 MG Oral Tablet (Cozaar) Take 1 Tablet by mouth in the morning. 90 Tablet 3 No current facility-administered medications for this visit. Past Medical History: Diagnosis Date Closed fracture of carpal bone 12/16/09 right wrist Female stress incontinence Generalized anxiety disorder 2000 Lateral epicondylitis 08/09/01 right lateral epicondylitis started throwing candy out a window during a parade. Starting PT at [facility] Need for hepatitis C screening test 03/20/14 [...] MD at ENDOSCOPY [facility] CYSTOSCOPY 09/27/2011 coapetite injection HC BREAST VALE [...] MD at OR [facility] REMOVE CATARACT, INSERT LENS PROSTH Right 01/24/2022 RIGHT EXTRACAPSULAR CATARACT REMOVAL WITH INTRAOCULAR LENS performed by Chris Umana MD at OR [facility] US PELVIS TRANS-ABDOMINAL 01/03/2007 normal VAGINAL HYSTERECTOMY, W/TUBE/OVARY 07/15/2007 vag hyst/BSO/Dea, cystotomy repair - Stuck Review of patient's allergies indicates: No Known Allergies Family History Problem Relation Age of Onset Diabetes Mother Heart Disorder Father Breast Cancer Aunt (Maternal) Social History Tobacco Use Smoking status: Every Day Current packs/day: 1.00 Average packs/day: 1 pack/day for 47.4 years (47.4 ttl pk-yrs) Types: Cigarettes Start date: 1976 Smokeless tobacco: Never Tobacco comments: started age 16, restarted 01/2009 Substance Use Topics Alcohol use: No Vaping/E-Cigarette Use Vaping/E-Cigarette Substances Vaping/E-Cigarette Devices ROS: -Per HPI OBJECTIVE: BP 128/68 | Pulse 77 | Temp 35.4 C (95.7 F) | Wt 72 kg (158 lb 12.8 oz) | LMP 06/15/2007 | TcD539% | BMI 26.43 kg/m | BSA 1.82 m PHYSICAL EXAM: Vitals are reviewed General:. NAD, well developed HEENT:. Normal Conjunctiva, EOMI Cardiac:. Normal S1, S2, no murmur Lungs:. CTA, no wheezing or crackles MSK:. Normal gait Psych:. AAOx3, normal affect ASSESSMENT/PLAN: Pt is in sinus rhythm - VSS Atrial fibrillation, unspecified type (HCC) (Primary) - DISCH MED RECON CUR MED LIS - CARDIOLOGY REFERRAL OP HTN, goal below 130/80 - BP is wnl - continue losartan Hospital discharge follow-up Rolf Vera MD Family medicine, [address] [facility] [address] documented in this encounter Nursing Notes * Sherry Pope CMA - 09/04/2023 8:38 AM EST She is here for hospital follow up. She was in [facility] from 08/22/2023-08/25/2023 for A-fib. documented in this encounter Plan of Treatment Upcoming Encounters Date Type Department Care Team (Late st Contact Info) Description 09/13/2023 11:30 AM EST Office Visit Cardiology, [facility] [address] [place] [address] Chelsi Tuttle CRNP [address] [place] [address] 10/10/2023 9:00 AM EDT Office Visit Family Medicine [address] [place] [phone] Rolf Vera MD [address] [place] [address] [place] [address] 05/07/2024 10:00 AM EDT Imaging Radiology [address] [place] [address] Scheduled Procedures Name Priority Associated Diagnoses Date/Ti me COLONOSCOPY FLEXIBLE PROXIMA L DIAGNOSTIC Recall Encounter for screening colonoscopy Scheduled Referrals Name Type Priority Associated Diagnoses Orde r Schedule CARDIOLOGY REFERRAL OP Referral Within 30 days (routine) Atrial fibrillation, unspecified type (HCC) Ordered: 09/04/2023 Health Maintenance Due Date Last Done Comments [...] 11/20/2007 LUNG CANCER SCREENING - USE SMARTSET 48472 Completed 01/11/2023, 12/15/2020 GARDASIL-HPV IMMUNIZATION SERIES Aged Out No longer eligible based on patient's age to complete this topic Hepatitis B Aged Out No longer eligi ble based on patient's age to complete this topic MENINGOCOCCAL (MENACTRA/MENVEO) Aged Out No longer eligible based on patient's age to complete this topic documented as of this encounter Medical Devices Implanted Type Area International Affairs Vice President Device Identifier Shelf Expiration Date Model / Serial / Lot Lens Intraoc 18.5 - [id number] - [id number] Implanted:Qty: 1 on 01/10/2022 by Chris Umana MD at OR [facility] Left: Eye [employer]USCH [employer] LOMB 08/08/2026 [id number] / [id number] / [id number] Lens Intraoc 18.5 - [id number] - [id number] Implanted:Qty: 1 on 01/24/2022 by Chris Umana MD at OR [facility] Right: Eye BAUSCH & LOMB 10/06/2026 [id number] / [id number] / [id number] documented as of this encounter Visit Diagnoses Diagnosis Atrial fibrillation, unspecified type (HCC)- Primary HTN, goal below 130/80 Unspecified essential hypertension Hospital discharge follow-up Other follow-up examination documented in this encounter Care Teams Warehousing Technician Relationship Specialty Start Date End Date Rolf Vera MD [address] [place] [address] [place] [address] PCP - General Family Medicine 08/27/19 documented as of this encounter"
--- OUTSIDE RECORDS SUMMARY | 2023-12-08 22:21 | External Medical Summary | Summary of Care ---
Author Name Unknown Organization [facility] Address [address] [facility] [place] [address] Phone [phone] Care Team Providers Care Quality Assurance Lead Name Role Phone Rolf Vera MD Primary Care Provide r Reason for Visit * Reason Onset Date Comments Medication Refill 10/15/2023 Encounter Details Date Type Department Care Team (Late st Contact Info) Description 10/15/2023 Refill Family Medicine [address] [phone] Rolf Vera MD [address] [place] [address] [place] [address] Allergies No known active allergiesdocumented as of this encounter (statuses as of 10/16/2023) Medications Medication Sig Dispensed Refills Start Date [...] A1c goal of less than 7.0% ([facility]) Use as directed . Check fasting glucose [...] the morning and 1 Tablet before bedtime. 180 Tablet 2 10/16/2023 Active Metoprolol Succinate ER 50 MG Oral Tablet Extended Release 24 Hour (toPROL XL) Take 1 Tablet by mouth in the morning and 1 Tablet before bedtime. 60 Tablet 2 09/19/2023 04/08/202 4 Discontinue d(Refill) documented as of this encounter (statuses as of 10/16/2023) Active Problems Problem Noted Date Diagnosed Date [...] as of this encounter (statuses as of 10/16/2023) Resolved Problems Problem Noted Date Diagnosed Date Resolved Date Encounter for examination fo r normal comparison and control in clinical research program 09/13/2012 12/19/2012 Overview: Diagnosis changed due to Research Module. Go to Snapshot for study details. Lateral epicondylitis 08/09/20012011 Overview: right lateral epicondylitis started throwing candy out a window during a parade. Starting PT at [facility] Lateral epicondylitis 2010 GENERALIZED ANXIETY DIS 03/10 documented as of this encounter (statuses as of 10/16/2023) Immunizations Name Administration Dates Next Due COVID-19 [...] Telephone Encounter - Rolf Vera MD - 10/16/2023 7:24 AM EDT Signed Prescriptions: Disp Refills Metoprolol Succinate ER 50 MG Oral Tablet *180 Ta*2 Sig: Take 1 Tablet by mouth in the morning and 1 Tablet before bedtime. Authorizing Provider: ROLF VERA * Telephone Encounter - Carole Meeks RN - 10/15/2023 3:39 PM EDTPending Prescriptions: Disp Refills Metoprolol Succinate ER 50 MG Oral Tablet *180 Ta*2 Sig: Take 1 Tablet by mouth in the morning and 1 Tablet before bedtime. * Telephone Encounter - Halle Aldridge, BLANCA - 10/15/2023 3:33 PM EDT Did you pend patient's preferred pharmacy and medication before forwarding?yes Pharmacy: [id number] Pending Prescriptions: Disp Refills Metoprolol Succinate ER 50 MG Oral Tablet*60 Tab*2 Sig: Take 1 Tablet by mouth in the morning and 1 Tablet before bedtime. Last Visit: 10/10/2023 (in office), Visit date not found (telemedicine) Next Visit: 02/21/2024 If no future appointments scheduled, and last appointment is greater than a year ago, please schedule patient for a follow-up appointment Last date the medication was ordered: 09/1323 Is this request for a controlled substance?No [...] Care Team (Late st Contact Info) Description 01/03/2024 10:00 AM EDT Office Visit Cardiology, [facility] [address] [place] [address] Shukri Sow DO [address] [place] [address] 02/21/2024 10:40 AM EDT Office Visit Family Medicine [address] [place] [phone] Rolf Vera MD [address] [place] [address] [place] [address] 05/07/2024 10:00 AM EDT Imaging Radiology [address] [place] [address] Scheduled Procedures Name Priority Associated Diagnoses Date/Ti me COLONOSCOPY FLEXIBLE PROXIMA L DIAGNOSTIC Recall Encounter for screening colonoscopy Health Maintenance Due Date Last Done Comments DISCUSS TOBACCO CESSATION (REFER TO SMARTSET #6335) 1962 Pneumococcal Vaccine: Pediatrics (0 to 5 [...] season) 2023 11/20/2020, 10/30/2020 HbA1c 02/16/2024 08/18/2023, 01/07, 08/05/2022, Additional history exists Influenza Vaccine (FLU [...] 11/20/2007 LUNG CANCER SCREENING - USE SMARTSET 47127 Completed 01/11/2023, 12/15/2020 GARDASIL-HPV IMMUNIZATION SERIES Aged Out No longer eligible based on patient's age to complete this topic Hepatitis B Aged Out No longer eligi ble based on patient's age to complete this topic MENINGOCOCCAL (MENACTRA/MENVEO) Aged Out No longer eligible based on patient's age to complete this topic documented as of this encounter Medical Devices Implanted Type Area Operations Analyst Device Identifier Shelf Expiration Date Model / Serial / Lot Lens Intraoc 18.5 - [id number] - [id number] Implanted:Qty: 1 on 01/10/2022 by Chris Umana MD at OR [facility] Left: Eye [employer]USCH [employer] LOMB 08/08/2026 [id number] / [id number] / [id number] Lens Intraoc 18.5 - [id number] - [id number] Implanted:Qty: 1 on 01/24/2022 by Chris Umana MD at OR [facility] Right: Eye BAUSCH & LOMB 10/06/2026 [id number] / [id number] / [id number] documented as of this encounter Care Teams Quality Assurance Lead Relationship Specialty Start Date End Date Rolf Vera MD [address] [place] [address] [place] [phone] PCP - General Family Medicine 08/27/19 documented as of this encounter
--- OUTSIDE RECORDS SUMMARY | 2023-12-08 22:21 | External Medical Summary | Summary of Care ---
Author Name Unknown Organization [facility] Address [address] [address] Phone [phone] Care Team Providers Care Roustabout Name Role Phone Rolf Vera MD Primary Care Provide r Reason for Visit * Reason Comments eRx-Medication Refill Encounter Details Date Type Department Care Team (Late st Contact Info) Description 11/22/2023 Refill Family Medicine [address] [phone] Aguilar Lombardo MD [address] [place] [address] [place] [address] Allergies No known active allergiesdocumented as of this encounter (statuses as of 11/26/2023) Medications Medication Sig Dispensed Refills Start Date End Date Status MULTIVITAMIN/IRON PO TABS Take by mouth at bedtime . 100 3 10/21/2008 Active ZINC 10 MG MT LOZG Apply to the mouth or throat at bedtime . Active Diclofenac Sodium 1 % External Gel (Voltaren)Indication s:Osteoarthritis of both hips, unspecified osteoarthritis type PLACE 2 G TOPICALLY ON THE SKIN 2 TIMES A DAY AREA DIRECTED. 100 g 1 03/10/2021 Active True Metrix Go Glucose Meter w/Device KitIndications:Type 2 diabetes mellitus with hemoglobin A1c goal of less than 7.0% ([facility]) Use as directed . Check fasting glucose 1-2x/week 1 Kit 11/21/2021 Active ReliOn Lancets Micro-Thin 33GIndications:Type 2 diabetes mellitus with hemoglobin A1c goal of less than 7.0% (HCC) Use to test twice daily. E11.9 100 Each 1 11/21/2021 Active Acetaminophen 500 MG Oral Tablet (Tylenol) Take 2 Tablets by mouth every 6 hours as needed. Active metFORMIN HCl ER 500 MG Oral Tablet Extended Release 24 Hour (Glucophage XR)Indications:Diabe karina mellitus without complication (HCC) TAKE 4 TABLETS BY MOUTH EVERY DAY 360 Tablet 3 02/27/2023 Active Atorvastatin Calcium 20 MG Oral Tablet (Lipitor)Indications :Dyslipidemia, goal LDL below 100 TAKE 1 TABLET BY MOUTH EVERY DAY 90 Tablet 3 02/27/2023 Active Ozempic (1 MG/DOSE) 4 MG/3ML Subcutaneous [...] before bedtime. 180 Tablet 2 10/16/2023 Active Tolterodine Tartrate ER 4 MG Oral Capsule Extended Release 24 Hour (Detrol LA) TAKE 1 CAPSULE BY MOUTH EVERY DAY 90 Capsule 1 11/26/2023 Active Pantoprazole Sodium 40 MG Oral Tablet Delayed Release (Protonix)Indication s:Gastroesophageal reflux disease without esophagitis TAKE 1 TABLET BY MOUTH DAILY 30 MINUTES BEFORE FIRST MEAL OF DAY. DO NOT CRUSH, SPLIT OR CHEW. 90 Tablet 1 11/23/2023 Active Tolterodine Tartrate ER 4 MG Oral Capsule Extended Release 24 Hour (Detrol LA) TAKE 1 CAPSULE BY MOUTH EVERY DAY 90 Capsule 1 05/16/2023 Discontinue d(Refill) documented as of this encounter (statuses as of 11/26/2023) Active Problems Problem Noted Date Diagnosed Date [...] as of this encounter (statuses as of 11/26/2023) Resolved Problems Problem Noted Date Diagnosed Date Resolved Date Encounter for examination fo r normal comparison and control in clinical research program 09/13/2012 12/19/2012 Overview: Diagnosis changed due to Research Module. Go to Snapshot for study details. Lateral epicondylitis 08/09/20012011 Overview: right lateral epicondylitis started throwing candy out a window during a parade. Starting PT at [facility] Lateral epicondylitis 2010 GENERALIZED ANXIETY DIS 03/10 documented as of this encounter (statuses as of 11/26/2023) Immunizations Name Administration Dates Next Due COVID-19 [...] Date Smoking Tobacco: Every Day Cigarettes 1 47.6 Started: 1974 Smokeless Tobacco: Never Comments:started age [...] Telephone Encounter - Rolf Vera MD - 11/26/2023 6:23 AM EDT Signed Prescriptions: Disp Refills Tolterodine Tartrate ER 4 MG Oral Capsule *90 Cap*1 Sig: TAKE 1 CAPSULE BY MOUTH EVERY DAY Authorizing Provider: ROLF VERA * Telephone Encounter - Alexandro Jewell [facility] - 11/23/2023 2:31 PM EDTPending Prescriptions: Disp Refills Tolterodine Tartrate ER 4 MG Oral Capsule *90 Cap*1 Sig: TAKE 1 CAPSULE BY MOUTH EVERY DAY * Telephone Encounter - Alexandro Jewell [facility] - 11/23/2023 2:30 PM EDT Refill pharmacists currently not authorized to approve refills for the pended medication(s) per refill protocol. Please approve if appropriate. Thanks, Alexandro Jewell, [place].Ph. Clinical Pharmacist [facility] [phone] 11/23/2023,2:30 PM Pending Prescriptions: Disp Refills Tolterodine Tartrate ER 4 MG Oral Capsule *90 Cap*1 Sig: TAKE 1 CAPSULE BY MOUTH EVERY DAY Last Visit: 10/10/2023 (in office), Visit date not found (telemedicine) Next Visit: 02/21/2024 If no future appointments scheduled, and last appointment is greater than a year ago, please schedule patient for a follow-up appointment Last date the medication was ordered: 05-16-23 Pharmacy: [facility] [id number] Is this request for a controlled substance?No Urine Drug Screen:No results found for this or any previous visit. Patient Phone Numbers Labs: Lab Results Component Value Date/Time CREAT 0.73 08/18/2023 12:00 AM CREAT 0.6 02/28/2011 11:00 AM POTASSIUM 4.7 08/18/2023 12:00 AM POTASSIUM 4.4 02/28/2011 11:00 AM TSH 0.558 10/13/2023 12:00 AM TSH 0.39 11/20/2007 02:21 PM [...] 01/03/2024 10:00 AM EDT Office Visit Cardiology, [facility] [address] [place] [address] Shukri Sow DO [address] [place] [address] 02/21/2024 10:40 AM EDT Office Visit Family Medicine [address] [place] [phone] Rolf Vera MD [address] [place] [address] [place] [address] 05/07/2024 10:00 AM EDT Imaging Radiology [address] [place] [address] Scheduled Procedures Name Priority Associated Diagnoses Date/Ti me COLONOSCOPY FLEXIBLE PROXIMA L DIAGNOSTIC Recall Encounter for screening colonoscopy Health Maintenance Due Date Last Done Comments DISCUSS TOBACCO CESSATION (REFER TO SMARTSET #4612) 1962 Pneumococcal Vaccine: Pediatrics (0 to 5 Years) and At-Risk Patients (6 to 64 Years) (1 of 2 - PCV) 1968 HIV Screening 1977 Alpha-1 Antitrypsin 1980 Cologuard 2007 Sigmoidoscopy 2007 Fecal Occult Blood Test 10/05/2017 10/05/2016 Zoster Vaccines (2 of 2) 06/02/2020 04/07/2020 Depression Screening 01/26/2023 01/26/2022 *COPD SEVERITY VERIFIED BY PFT 02/02/2023 COVID-19 Vaccine (3 - season) 2023 11/20/2020, 10/30/2020 HbA1c 02/16/2024 08/18/2023, [...] - Td or Tdap) 10/08/2028 10/08/2018, 11/20/2007 Lung Cancer Screening Completed 01/11/2023, 021 GARDASIL-HPV IMMUNIZATION SERIES Aged Out No longer eligible based on patient's age to complete this topic Hepatitis B Aged Out No longer eligi ble based on patient's age to complete this topic MENINGOCOCCAL (MENACTRA/MENVEO) Aged Out No longer eligible based on patient's age to complete this topic documented as of this encounter Medical Devices Implanted Type Area Extracorporeal Technician Device Identifier Shelf Expiration Date Model / Serial / Lot Lens Intraoc 18.5 - [id number] - [id number] Implanted:Qty: 1 on 01/10/2022 by Chris Umana MD at OR [facility] Left: Eye BAUSCH [employer] LOMB 08/08/2026 [id number] / [id number] / [id number] Lens Intraoc 18.5 - [id number] - [id number] Implanted:Qty: 1 on 01/24/2022 by Chris Umana MD at OR [facility] Right: Eye BAUSCH & LOMB 10/06/2026 [id number] / [id number] / [id number] documented as of this encounter Care Teams Roustabout Relationship Specialty Start Date End Date Rofl Vera MD [address] [place] [address] [place] [address] PCP - General Family Medicine 08/27/19 documented as of this encounter
--- OUTSIDE RECORDS SUMMARY | 2023-12-08 22:21 | External Medical Summary | Summary of Care ---
Author Name Unknown Organization [facility] Address [address] [facility] [place] [address] Phone [phone] Care Team Providers Care Grant Coordinator Name Role Phone Rolf Vera MD Primary Care Provide r Encounter Details Date Type Department Care Team (Late st Contact Info) Description 08/24/2023 Result Scan Unspecified Department <No scans attached> Allergies No known active allergiesdocumented as of this encounter (statuses as of 08/28/2023) Medications Medication Sig Dispensed Refills Start Date [...] goal of less than 7.0% ([facility]) Use as directed . Check fasting glucose 1-2x/week 1 Kit 0 11/21/2021 Active ReliOn Lancets Micro-Thin 33GIndications:Type 2 diabetes mellitus with hemoglobin A1c goal of less than 7.0% ([facility]) Use to test twice daily. E11.9 100 [...] as of this encounter (statuses as of 08/28/2023) Active Problems Problem Noted Date Diagnosed Date [...] as of this encounter (statuses as of 08/28/2023) Resolved Problems Problem Noted Date Diagnosed Date Resolved Date Encounter for examination fo r normal comparison and control in clinical research program 09/13/2012 12/19/2012 Overview: Diagnosis changed due to Research Module. Go to Snapshot for study details. Lateral epicondylitis 08/09/20012011 Overview: right lateral epicondylitis started throwing candy out a window during a parade. Starting PT at [facility] Lateral epicondylitis 2010 GENERALIZED ANXIETY DIS 03/10 documented as of this encounter (statuses as of 08/28/2023) Immunizations Name Administration Dates Next Due COVID-19 [...] 9:00 AM EST Office Visit Family Medicine [address] [place] [address] Rolf Vera MD [address] [place] [address] [place] [address] 10/10/2023 9:00 AM EDT Office Visit Family Medicine [address] [place] [address] Rolf Vera MD [address] [place] [address] [place] [address] 05/07/2024 10:00 AM EDT Imaging Radiology [address] [place] [address] Scheduled Procedures Name Priority Associated Diagnoses Date/Ti me COLONOSCOPY FLEXIBLE PROXIMA L DIAGNOSTIC Recall Encounter for screening colonoscopy Health Maintenance Due Date Last Done Comments DISCUSS TOBACCO CESSATION (REFER TO SMARTSET #9310) 1960 Pneumococcal Vaccine: Pediatrics (0 to 5 [...] 11/20/2007 LUNG CANCER SCREENING - USE SMARTSET 34079 Completed 01/11/2023, 12/15/2020 GARDASIL-HPV IMMUNIZATION SERIES Aged Out No longer eligible based on patient's age to complete this topic Hepatitis B Aged Out No longer eligi ble based on patient's age to complete this topic MENINGOCOCCAL (MENACTRA/MENVEO) Aged Out No longer eligible based on patient's age to complete this topic documented as of this encounter Medical Devices Implanted Type Area Passenger Interline Clerk Device Identifier Shelf Expiration Date Model / Serial / Lot Lens Intraoc 18.5 - [id number] - [id number] Implanted:Qty: 1 on 01/10/2022 by Chris Umana MD at OR [facility] Left: Eye BAUSCH & LOMB 08/08/2026 [id number] / [id number] / [id number] Lens Intraoc 18.5 - [id number] - [id number] Implanted:Qty: 1 on 01/24/2022 by Chris Umana MD at OR [facility] Right: Eye BAUSCH & LOMB 10/06/2026 [id number] / [id number] / [id number] documented as of this encounter Procedures Procedure Name Priority Date/Time Associated Diagnosis Comments ECHOCARDIOLOGY SCANNED RESULT 08/24/2023 documented in this encounter Results * ECHOCARDIOLOGY SCANNED RESULT (08/24/2023) 08/24/2023 No Physician Data Unknown ECHOCARDIOLOGY documented in this encounter Care Teams Grant Coordinator Relationship Specialty Start Date End Date Rolf Vera MD [address] [place] [address] [place] [address] PCP - General Family Medicine 08/27/19 documented as of this encounter
--- OUTSIDE RECORDS SUMMARY | 2023-12-08 22:21 | External Medical Summary | Summary of Care ---
Author Name Unknown Organization [facility] Address [address] [place] [address] Phone [phone] Care Team Providers Care High School Drafting Teacher Name Role Phone Rolf Vera MD Primary Care Provide r Reason for Visit * Reason Onset Date Comments Referral 09/13/2023 Encounter Details Date Type Department Care Team (Late st Contact Info) Description 09/13/2023 New Patient Triage (FIBERGLASS AUTO BODY REPAIRER USE ONLY) Cardiology, [facility] [address] [place] [address] [place] CRNP [address] [place] [address] Referral Allergies No known active allergiesdocumented as of this encounter (statuses as of 09/13/2023) Medications Medication Sig Dispensed Refills Start Date [...] as of this encounter (statuses as of 09/13/2023) Active Problems Problem Noted Date Diagnosed Date [...] as of this encounter (statuses as of 09/13/2023) Resolved Problems Problem Noted Date Diagnosed Date [...] as of this encounter (statuses as of 09/13/2023) Immunizations Name Administration Dates Next Due COVID-19 [...] on file documented as of this encounter Progress Notes * Mary Wynn LPN - 09/13/2023 10:43 AM EST Pt consulted by Angel Reyes MD at [facility] on 08/23/2023 TTC not needed Accessed [facility] charts, will send notes to pt chart documented in this encounter Plan of Treatment Upcoming Encounters Date Type Department Care Team (Late st Contact Info) Description 10/10/2023 9:00 AM EDT Office Visit Family Medicine [address] [place] [phone] Rolf Vera MD [address] [place] [address] [place] [address] 01/03/2024 11:30 AM EDT Office Visit Cardiology, [facility] [address] [place] [address] Chelsi Tuttle CRNP [address] [place] [address] 05/07/2024 10:00 AM EDT Imaging Radiology [address] [place] [address] Scheduled Procedures Name Priority Associated Diagnoses Date/Ti me COLONOSCOPY FLEXIBLE PROXIMA L DIAGNOSTIC Recall Encounter for screening colonoscopy Health Maintenance Due Date Last Done Comments DISCUSS TOBACCO CESSATION (REFER TO SMARTSET #3439) 1960 Pneumococcal Vaccine: Pediatrics (0 to 5 [...] 11/20/2007 LUNG CANCER SCREENING - USE SMARTSET 27979 Completed 01/11/2023, 12/15/2020 GARDASIL-HPV IMMUNIZATION SERIES Aged Out No longer eligible based on patient's age to complete this topic Hepatitis B Aged Out No longer eligi ble based on patient's age to complete this topic MENINGOCOCCAL (MENACTRA/MENVEO) Aged Out No longer eligible based on patient's age to complete this topic documented as of this encounter Medical Devices Implanted Type Area Design Tech Device Identifier Shelf Expiration Date Model / Serial / Lot Lens Intraoc 18.5 - [id number] - [id number] Implanted:Qty: 1 on 01/10/2022 by Chris Umana MD at OR [facility] Left: Eye BAUSCH & LOMB 08/08/2026 [id number] / [id number] / [id number] Lens Intraoc 18.5 - [id number] - [id number] Implanted:Qty: 1 on 01/24/2022 by Chris Umana MD at [facility] Right: Eye BAUSCH & LOMB 10/06/2026 [id number] / [id number] / [id number] documented as of this encounter Care Teams High School Drafting Teacher Relationship Specialty Start Date End Date Rolf Vera MD [address] [place] [address] [place] [address] PCP - General Family Medicine 08/27/19 documented as of this encounter
--- OUTSIDE RECORDS SUMMARY | 2023-12-08 22:21 | External Medical Summary | Summary of Care ---
Author Name Unknown Organization [facility] Address [address] [place] [address] Phone [phone] Care Team Providers Care Licensed Veterinary Technician Name Role Phone Rolf Vera MD Primary Care Provide r Reason for Visit * Reason Onset Date Comments Referral 09/13/2023 Encounter Details Date Type Department Care Team (Late st Contact Info) Description 09/13/2023 New Patient Triage (COUNTER CONTROL OPERATOR USE ONLY) Cardiology, [facility] [address] [place] [address] [place] Dudley CRNP [address] [place] [address] Referral Allergies No known active allergiesdocumented as of this encounter (statuses as of 09/16/2023) Medications Medication Sig Dispensed Refills Start Date [...] as of this encounter (statuses as of 09/16/2023) Active Problems Problem Noted Date Diagnosed Date [...] as of this encounter (statuses as of 09/16/2023) Resolved Problems Problem Noted Date Diagnosed Date [...] as of this encounter (statuses as of 09/16/2023) Immunizations Name Administration Dates Next Due COVID-19 [...] as of this encounter Progress Notes * Bonny Quinteros DNP - 09/16/2023 7:54 PM EDT Does patient need to be seen?: Yes Modality: Office visit Urgency: Within 30 days (routine) Discussed care plan with patient or proxy?: Yes scheduled Communicated with patient on Date (mm/dd/yyyy): 09/14/2023 at Time ([facility]): [address] Bonny Quinteros [place] [address] [facility] * Mary Wynn LPN - 09/14/2023 12:13 PM EST New Patient Triage What is the diagnosis/reason for referral?: Atrial fibrillation, unspecified type (HCC) [I48.91] - Primary Enter order ID here: [id number] Specialty specific documentation: Cardiology Structural Heart Discussed care plan with patient or proxy?: Yes willis Communicated with patient on 09/14/23 at 12:15 PM Pt was scheduled for 09/13/23 but cancelled. Now rescheduled for 01/03/24. Seen at hospital on 08/22/23 for afib RVR Started on eliquis, metoprolol Medlist updated. * Mary Wynn LPN - 09/13/2023 10:43 AM EST Pt consulted by Angel Reyes MD at [facility] on 08/23/2023 TTC not needed Accessed [facility] charts, will send notes to pt chart documented in this encounter Plan of Treatment Upcoming Encounters Date Type Department Care Team (Late st Contact Info) Description 10/10/2023 9:00 AM EDT Office Visit Family Medicine [address] [place] [phone] Rolf Vera MD [address] [place] [address] [place] [address] 01/03/2024 11:30 AM EDT Office Visit Cardiology, [facility] [address] [place] [address] Chelsi Tuttle CRNP [address] [place] [address] 05/07/2024 10:00 AM EDT Imaging Radiology [address] [place] [address] Scheduled Procedures Name Priority Associated Diagnoses Date/Ti me COLONOSCOPY FLEXIBLE PROXIMA L DIAGNOSTIC Recall Encounter for screening colonoscopy Health Maintenance Due Date Last Done Comments DISCUSS TOBACCO CESSATION (REFER TO SMARTSET #4996) 1960 Pneumococcal Vaccine: Pediatrics (0 to 5 [...] 11/20/2007 LUNG CANCER SCREENING - USE SMARTSET 34695 Completed 01/11/2023, 12/15/2020 GARDASIL-HPV IMMUNIZATION SERIES Aged Out No longer eligible based on patient's age to complete this topic Hepatitis B Aged Out No longer eligi ble based on patient's age to complete this topic MENINGOCOCCAL (MENACTRA/MENVEO) Aged Out No longer eligible based on patient's age to complete this topic documented as of this encounter Medical Devices Implanted Type Area Coroner Forensic Technician Device Identifier Shelf Expiration Date Model / Serial / Lot Lens Intraoc 18.5 - [id number] - [id number] Implanted:Qty: 1 on 01/10/2022 by Chris Umana MD at OR [facility] Left: Eye BAUSCH & LOMB 08/08/2026 [id number] / [id number] / [id number] Lens Intraoc 18.5 - [id number] - [id number] Implanted:Qty: 1 on 01/24/2022 by Chris Umana MD at OR [facility] Right: Eye BAUSCH & LOMB 10/06/2026 [id number] / [id number] / [id number] documented as of this encounter Care Teams Licensed Veterinary Technician Relationship Specialty Start Date End Date Rolf Vera MD [address] [place] [address] [place] [phone] PCP - General Family Medicine 08/27/19 documented as of this encounter
--- OUTSIDE RECORDS SUMMARY | 2023-12-08 22:21 | External Medical Summary | Summary of Care ---
Author Name Unknown Organization [facility] [address] [facility] [address] Phone [phone] Care Team Providers Care Electric Motor Winder Name Role Phone Rolf Vera MD Primary Care Provide r Reason for Visit * Reason Comments eRx-Medication Refill Encounter Details Date Type Department Care Team (Late st Contact Info) Description 11/22/2023 Refill Family Medicine [address] [phone] Rolf Vera MD [address] [place] [address] [place] [address] Encounter for long-term (current) use of medications*; Gastroesophageal reflux disease without esophagitis; Encounter for vitamin deficiency screening Allergies No known active allergiesdocumented as of this encounter (statuses as of 11/23/2023) Medications Medication Sig Dispensed Refills Start Date [...] Active Losartan Potassium 50 MG Oral Tablet (Cozaar)Indications :HTN, goal below 130/80 Take 1 Tablet by [...] before bedtime. 180 Tablet 2 10/16/2023 Active Pantoprazole Sodium 40 MG Oral Tablet Delayed Release (Protonix)Indicatio ns:Gastroesophageal reflux disease without esophagitis TAKE 1 TABLET BY MOUTH DAILY 30 MINUTES BEFORE FIRST MEAL OF DAY. DO NOT CRUSH, SPLIT OR CHEW. 90 Tablet 1 11/23/2023 Active Pantoprazole Sodium 40 MG Oral Tablet Delayed Release (Protonix)Indicatio ns:Gastroesophageal reflux disease without esophagitis TAKE 1 TABLET BY MOUTH DAILY 30 MINUTES BEFORE FIRST MEAL OF DAY. DO NOT CRUSH, SPLIT OR CHEW. 90 Tablet 1 07/06/2023 11/23/19 24 Discontinued documented as of this encounter (statuses as of 11/23/2023) Active Problems Problem Noted Date Diagnosed Date [...] as of this encounter (statuses as of 11/23/2023) Resolved Problems Problem Noted Date Diagnosed Date Resolved Date Encounter for examination fo r normal comparison and control in clinical research program 09/13/2012 12/19/2012 Overview: Diagnosis changed due to Research Module. Go to Snapshot for study details. Lateral epicondylitis 08/09/20012011 Overview: right lateral epicondylitis started throwing candy out a window during a parade. Starting PT at [facility] Lateral epicondylitis 2010 GENERALIZED ANXIETY DIS 03/10 documented as of this encounter (statuses as of 11/23/2023) Immunizations Name Administration Dates Next Due COVID-19 [...] Miscellaneous Notes * Telephone Encounter - Alexandro Alvarado, [facility] - 11/23/2023 2:33 PM EDTSigned Prescriptions: Disp Refills Pantoprazole Sodium 40 MG Oral Tablet Kaylynn*90 Tab*1 Sig: TAKE 1TABLET BY MOUTH DAILY 30 MINUTES BEFORE FIRST MEAL OF DAY. DO NOT CRUSH, SPLIT OR CHEW.Authorizing Provider: Yesenia VERA User: ALEXANDRO ALVARADO * Telephone Encounter - Alexandro Alvarado RPh - 11/23/2023 2:31 PM EDT Per refill protocol patient needs magnesium and vitamin B-12 labs on file within the past 2 years while using PPIs. Lab work ordered. Patient may obtain with next routine labs. Thanks, Alexandro Alvarado, [place].Ph. Clinical Pharmacist [facility] [phone] ext [phone] 11/23/2023,2:33 PM documented in this encounter Plan of Treatment Upcoming Encounters Date Type Department Care Team (Late st Contact Info) Description 01/03/2024 10:00 AM EDT Office Visit Cardiology, [facility] [address] [place] [address] Shukri Sow DO [address] [place] [address] 02/21/2024 10:40 AM EDT Office Visit Family Medicine [address] [place] [address] Rolf Vera MD [address] [place] [address] [place] [address] 05/07/2024 10:00 AM EDT Imaging Radiology [address] [place] [address] Scheduled Orders Name Type Priority Associated Diagnoses Orde r Schedule MAGNESIUM Lab Routine Gastroesophageal reflux disease without esophagitis Encounter for long-term (current) use of medications Expected: 02/21/2024 (Approximate), Expires: 11/21/2024 VITAMIN B12 Lab Routine Encounter for long-term (current) use of medications Encounter for vitamin deficiency screening Expected: 02/21/2024 (Approximate), Expires: 11/21/2024 Scheduled Procedures Name Priority Associated Diagnoses Date/Ti me COLONOSCOPY FLEXIBLE PROXIMA L DIAGNOSTIC Recall Encounter for screening colonoscopy Health Maintenance Due Date Last Done Comments DISCUSS TOBACCO CESSATION (REFER TO SMARTSET #3028) 1960 Pneumococcal Vaccine: Pediatrics (0 to 5 [...] this encounter Medical Devices Implanted Type Area Us Marketing Director Device Identifier Shelf Expiration Date Model / Serial / Lot Lens Intraoc 18.5 - [id number] - [id number] Implanted:Qty: 1 on 01/10/2022 by Chris Umana MD at OR [facility] Left: Eye BAUSCH & LOMB 08/08/2026 [id number] / [id number] / [id number] Lens Intraoc 18.5 - [id number] - [id number] Implanted:Qty: 1 on 01/24/2022 by Chris Umana MD at OR [facility] Right: Eye BAUSCH & LOMB 10/06/2026 [id number] / [id number] / [id number] documented as of this encounter Visit Diagnoses Diagnosis Encounter for long-term (current) use of medications- Primary Encounter for long-term (current) use of other medications Gastroesophageal reflux disease without esophagitis Esophageal reflux Encounter for vitamin deficiency screening Screening for other and unspecified endocrine, nutritional, metabolic, and immunity disorders documented in this encounter Care Teams Electric Motor Winder Relationship Specialty Start Date End Date Rolf Vera MD [address] [place] [address] [place] [phone] PCP - General Family Medicine 08/27/19 documented as of this encounter
--- OUTSIDE RECORDS SUMMARY | 2023-12-08 22:21 | External Medical Summary | Summary of Care ---
Author Name Unknown Organization [facility] Address [address] [place] [address] Phone [phone] Care Team Providers Care Factorer Name Role Phone Rolf Vera MD Primary Care Provide r Reason for Visit * Reason Onset Date Comments Referral 09/13/2023 Encounter Details Date Type Department Care Team (Late st Contact Info) Description 09/13/2023 New Patient Triage (MILLER WOOD FLOUR USE ONLY) Cardiology, [facility] [address] [place] [address] [place] CRNP [address] [place] [address] Referral Allergies No known active [...] Progress Notes * Mary Wynn LPN - 09/14/2023 12:13 PM EST New Patient Triage What is the diagnosis/reason for referral?: Atrial fibrillation, unspecified type (HCC) [I48.91] - Primary Enter order ID here: [id number] Specialty specific documentation: Cardiology Structural Heart Discussed [...] Pt consulted by Angel Reyes MD at [facility] on 08/23/2023 TTC not needed Accessed [facility] charts, will send notes to pt chart documented in this encounter Plan of Treatment Upcoming Encounters Date Type Department Care Team (Late st Contact Info) Description 10/10/2023 9:00 AM EDT Office Visit Family Medicine [address] [place] [address] Rolf Vera MD [address] [place] [address] [place] [address] 01/03/2024 11:30 AM EDT Office Visit Cardiology, [facility] [address] [place] [address] Chelsi Tuttle CRNP [address] [place] [address] 05/07/2024 10:00 AM EDT Imaging Radiology [address] [place] [address] Scheduled Procedures Name Priority Associated Diagnoses Date/Ti me COLONOSCOPY FLEXIBLE PROXIMA L DIAGNOSTIC Recall Encounter for screening colonoscopy Health Maintenance Due Date Last Done Comments DISCUSS TOBACCO CESSATION (REFER TO SMARTSET #4637) 1960 Pneumococcal Vaccine: Pediatrics (0 to 5 Years) and At-Risk Patients (6 to 64 Years) (1 of 2 - PCV) 1968 HIV Screening 1977 Alpha-1 Antitrypsin 1980 Cologuard 2007 Sigmoidoscopy 2007 Fecal Occult Blood Test 10/05/2017 10/05/2016 Zoster Vaccines (2 of 2) 06/02/2020 04/07/2020 Depression Screening 01/26/2023 01/26/2022 *COPD SEVERITY VERIFIED BY PFT 02/02/2023 COVID-19 Vaccine (2022- season) 2023 11/20/2020, 10/30/2020 Influenza Vaccine (FLU [...] 11/20/2007 LUNG CANCER SCREENING - USE SMARTSET 65010 Completed 01/11/2023, 12/15/2020 GARDASIL-HPV IMMUNIZATION SERIES Aged Out No longer eligible based on patient's age to complete this topic Hepatitis B Aged Out No longer eligi ble based on patient's age to complete this topic MENINGOCOCCAL (MENACTRA/MENVEO) Aged Out No longer eligible based on patient's age to complete this topic documented as of this encounter Medical Devices Implanted Type Area Systems Support Officer Device Identifier Shelf Expiration Date Model / Serial / Lot Lens Intraoc 18.5 - [id number] - [id number] Implanted:Qty: 1 on 01/10/2022 by Chris Umana MD at OR [facility] Left: Eye BAUSCH & LOMB 08/08/2026 [id number] / [id number] / [id number] Lens Intraoc 18.5 - [id number] - [id number] Implanted:Qty: 1 on 01/24/2022 by Chris Umana MD at OR [facility] Right: Eye BAUSCH & LOMB 10/06/2026 [id number] / [id number] / [id number] documented as of this encounter Care Teams Factorer Relationship Specialty Start Date End Date Rolf Vera MD [address] [place] [address] [place] [address] PCP - General Family Medicine 08/27/19 documented as of this encounter
--- OUTSIDE RECORDS SUMMARY | 2023-12-08 22:21 | External Medical Summary | Summary of Care ---
Author Name Unknown Organization [facility] Address [address] [facility] [place] [address] Phone [phone] Care Team Providers Care Adobe Layer Helper Name Role Phone Rolf Vera MD Primary Care Provide r Encounter Details Date Type Department Care Team (Late st Contact Info) Description 11/29/2023 Orders Only Family Medicine [address] [place] [address] Rolf Vera MD [address] [place] [address] [place] [address] Allergies No known active allergiesdocumented as of this encounter (statuses as of 11/29/2023) Medications Medication Sig Dispensed Refills Start Date [...] A1c goal of less than 7.0% ([facility]) Use as directed . Check [...] OR CHEW. 90 Tablet 1 11/23/2023 Active documented as of this encounter (statuses as of 11/29/2023) Active Problems Problem Noted Date Diagnosed Date [...] as of this encounter (statuses as of 11/29/2023) Resolved Problems Problem Noted Date Diagnosed Date Resolved Date Encounter for examination fo r normal comparison and control in clinical research program 09/13/2012 12/19/2012 Overview: Diagnosis changed due to Research Module. Go to Snapshot for study details. Lateral epicondylitis 08/09/20012011 Overview: right lateral epicondylitis started throwing candy out a window during a parade. Starting PT at [facility] Lateral epicondylitis 2010 GENERALIZED ANXIETY DIS 03/10 documented as of this encounter (statuses as of 11/29/2023) Immunizations Name Administration Dates Next Due COVID-19 mRNA, LNP-s, No Pre serve, 2-Dose Series ([employer]) 11/20/2020,10/30/2020 PPD 04/02/2012 Pneumococcal Polysaccharide PPV23 (Pneumovax) [...] 01/03/2024 10:00 AM EDT Office Visit Cardiology, [facility] [address] [place] [address] Shukri Sow DO [address] [place] [address] 02/21/2024 10:40 AM EDT Office Visit Family Medicine [address] [place] [phone] Rolf Vera MD [address] [place] [address] [place] [address] 05/07/2024 10:00 AM EDT Imaging Radiology [address] [place] [address] Scheduled Procedures Name Priority Associated Diagnoses Date/Ti me COLONOSCOPY FLEXIBLE PROXIMA L DIAGNOSTIC Recall Encounter for screening colonoscopy Health Maintenance Due Date Last Done Comments DISCUSS TOBACCO CESSATION (REFER TO SMARTSET #8444) 1960 Pneumococcal Vaccine: Pediatrics (0 to 5 [...] 04/26/2023, 04/08, 04/18/2021, Additional history exists Diabetic Foot Exam 08/02/2024 08/02/2023, 0 08/03/2022, 07/27/2021, Additional history exists Albumin/Creatinine Ratio 08/18/2024 024, 02/03/2023, 08/05/2022, Additional history exists GFR 08/18/2024 08/18/2023, 01/07, 08/05/2022, Additional history exists O2 ASSESSMENT COMPLETED IN PAST YEAR FOR COPD 10/09/2024 10/10/2023 Diabetic Eye Exam 11/28/2024 11/28/2023, , 11/09/2022, Additional history exists Colonoscopy 01/30/2028 01/29/2018, 01/29/2018 [...] this encounter Medical Devices Implanted Type Area Insecticide Expert Device Identifier Shelf Expiration Date Model / Serial / Lot Lens Intraoc 18.5 - [id number] - [id number] Implanted:Qty: 1 on 01/10/2022 by Chris Umana MD at [facility] Left: Eye [employer]USCH [employer] LOMB 08/08/2026 [id number] / [id number] / [id number] Lens Intraoc 18.5 - [id number] - [id number] Implanted:Qty: 1 on 01/24/2022 by Chris Umana MD at [facility] Right: Eye BAUSCH [employer] LOMB 10/06/2026 [id number] / [id number] / [id number] documented as of this encounter Procedures Procedure Name Priority Date/Time Associated Diagnosis Comments DIABETIC EYE EXAM Routine 11/28/2023 documented in this encounter Results * DIABETIC EYE EXAM (11/28/2023) 11/28/2023 History Per Patient OTHER OUTSIDE LAB (SEE SCANNED REPORT) documented in this encounter Care Teams Adobe Layer Helper Relationship Specialty Start Date End Date Rolf Vera MD [address] [place] [address] [place] [phone] PCP - General Family Medicine 08/27/19 documented as of this encounter
--- OUTSIDE RECORDS SUMMARY | 2023-12-08 22:22 | External Medical Summary | Summary of Care ---
Author Name Unknown Organization [facility] Address [address] [facility] [place] [address] Phone [phone] Care Team Providers Care Pharmacy Student Name Role Phone Rolf Vera MD Primary Care Provide r Reason for Visit * Reason Onset Date Comments Hospital Follow-Up 08/27/2023 [facility] 08/25 Encounter Details Date Type Department Care Team (Late st Contact Info) Description 08/27/2023 Telephone Ancillary [address] [place] [phone] Hedy West RN Hospital Follow-Up ([facility] 08/25) Allergies No known active allergiesdocumented as of this encounter (statuses as of 08/27/2023) Medications Medication Sig Dispensed Refills Start Date [...] of less than 7.0% ([facility]) Use as directed . Check fasting glucose 1-2x/week 1 Kit 0 11/21/2021 Active ReliOn Lancets Micro-Thin 33GIndications:Type 2 diabetes mellitus with hemoglobin A1c goal of less than 7.0% ([facility]) Use to test twice daily. E11.9 [...] of less than 7.0% ([facility]) Inject 1 mg under the skin once a week. 9 mL 1 08/02/2023 Active Losartan Potassium 50 MG Oral Tablet (Cozaar)Indications:H TN, goal below 130/80 Take 1 Tablet by mouth in the morning. 30 Tablet 3 08/10/2023 Active Amoxicillin-Pot Clavulanate 875-125 MG Oral Tablet (Augmentin) Take 1 Tablet by mouth in the morning and 1 Tablet before bedtime. 0 08/25/2023 08/28/2023 Active Metoprolol Succinate ER 50 MG Oral Tablet Extended Release 24 Hour (toPROL XL) Take 1 Tablet by mouth in the morning and 1 Tablet before bedtime. 0 08/25/2023 Active Apixaban 5 MG Oral Tablet (Eliquis) Take 1 Tablet by mouth in the morning and 1 Tablet before bedtime. 0 08/23/2023 Active documented as of this encounter (statuses as of 08/27/2023) Active Problems Problem Noted Date Diagnosed Date [...] as of this encounter (statuses as of 08/27/2023) Resolved Problems Problem Noted Date Diagnosed Date [...] as of this encounter (statuses as of 08/27/2023) Immunizations Name Administration Dates Next Due COVID-19 mRNA, LNP-s, No Pre serve, 2-Dose Series ([employer]) 11/20/2020,10/30/2020 PPD 04/02/2012 Pneumococcal Polysaccharide PPV23 (Pneumovax) [...] encounter Miscellaneous Notes * Telephone Encounter - Hedy West RN - 08/27/2023 1:11 PM EST Transitions of Care Note Reason for Referral:Recent Admission Phone visit for follow up: BEAR Admitted to: [facility], Date: 08/22 Discharged to: home, Date: 08/25 Diagnosis driving hospitalization: Afib with RVR UTI Source/Contact: Patient SUBJECTIVE Consent: Verbal consent for review of hospital discharge: Yes REVIEW OF SYSTEMS Patient/Other Reports: Current patient/caregiver problems or concerns: still feeling tired but otherwise no complaints CV: Denies problems. SBP running in the 1teens and last HR was in the 80's. Taking her bp with [facility]. Pulmonary: Denies problems Chills/Sweats/Fever:Denies chills/sweats Denies fever Appetite:Denies problems such as nausea, vomiting, burning, decreased appetite Current diet: as before Bowel: denies problems Bladder: denies problems Wound (If applicable): N/A Pain:Denies Sleep:Denies problems FUNCTIONAL STATUS: ADL'S: Needs Assistance With:N/A as pt is independent IADL'S: Needs Assistance With:N/A as pt is independent Cognitive and Mental Health: denies problems, alert and oriented x 3, and able to communicate, understand instructions, process information. MEDICATION RECONCILIATION Medications: Discharge med list reviewed with patient or caregiver New medication(s) filled since hospitalization- eliquis, metoprolol and augmentin Reports all medications taken as prescribed. Denies side effects OBJECTIVE ASSESSMENT Medication Risk Assessment: No risks identified Did patient fail outpatient treatment? No Discharge instructions available for review? Yes PLAN Symptom Monitoring Interventions:Member/caregiver education - signs and symptoms to contact PrimaryCare (DO NOT DELETE-Three valentino symptoms patient is to report to PCP) Hypotension 2. Increased HR 3. Feeling dizzy/lightheaded Log BuncherWardsperson of Care interventions/Action Plan: Medication reconciliation and 5 - 7 day follow-up with PCP in place - Date: 09/04 (pt choice) Educated on role of BEAR completed with patient/caregiver. Educated patient/caregiver on patient right to have input on BEAR plan of care. Verification of Home Health/DME if indicated: NO Identified Care Gaps: Yes Care Gaps closed this call: Appointment made or confirmed and Transition of Care follow-up communication Re-evaluation of Plan of Care and progress towards goals achievement: Patient education this visit: Verbal, as above Plan to follow-up as previously scheduled, instructed to call Primary Care Provider with change in symptoms or as needed before next follow-up, discharge needs met, verbalizes understanding and agrees with plan. Hedy West RN * Telephone Encounter - Hedy West RN - 08/27/2023 12:47 PM EST Transitions of Care Note Reason for Referral:Recent Admission Phone visit for follow up: BEAR Admitted to: [facility], Date: 08/22 Discharged to: home, Date: 08/25 Diagnosis driving hospitalization: Afib with RVR UTI Message left on voicemail. If she reaches the call center she can be transferred to [place] at [phone]. Thank you. documented in this encounter Plan of Treatment Upcoming Encounters Date Type Department Care Team (Late st Contact Info) Description 09/04/2023 9:00 AM EST Office Visit Family Medicine [address] [place] [phone] Rolf Vera MD [address] [place] [address] [place] [address] 10/10/2023 9:00 AM EDT Office Visit Family Medicine [address] [place] [phone] Rolf Vera MD [address] [place] [address] [place] [address] 05/07/2024 10:00 AM EDT Imaging Radiology [address] [place] [address] Scheduled Procedures Name Priority Associated Diagnoses Date/Ti sd COLONOSCOPY FLEXIBLE PROXIMA L DIAGNOSTIC Recall Encounter for screening colonoscopy Health Maintenance Due Date Last Done Comments DISCUSS TOBACCO CESSATION (REFER TO SMARTSET #8791) 1960 Pneumococcal Vaccine: Pediatrics (0 to 5 [...] 11/20/2007 LUNG CANCER SCREENING - USE SMARTSET 96357 Completed 01/11/2023, 12/15/2020 GARDASIL-HPV IMMUNIZATION SERIES Aged Out No longer eligible based on patient's age to complete this topic Hepatitis B Aged Out No longer eligi ble based on patient's age to complete this topic MENINGOCOCCAL (MENACTRA/MENVEO) Aged Out No longer eligible based on patient's age to complete this topic documented as of this encounter Medical Devices Implanted Type Area Jewel Bearing Broacher Device Identifier Shelf Expiration Date Model / Serial / Lot Lens Intraoc 18.5 - [id number] - [id number] Implanted:Qty: 1 on 01/10/2022 by Chris Umana MD at OR [facility] Left: Eye BAUSCH [employer] LOMB 08/08/2026 [id number] / [id number] / [id number] Lens Intraoc 18.5 - [id number] - [id number] Implanted:Qty: 1 on 01/24/2022 by Chris Umana MD at OR [facility] Right: Eye BAUSCH & LOMB 10/06/2026 [id number] / [id number] / [id number] documented as of this encounter Care Teams Pharmacy Student Relationship Specialty Start Date End Date Rolf Vera MD [address] [place] [address] [place] [phone] PCP - General Family Medicine 08/27/19 documented as of this encounter
[2023-12-09 06:36] LABS: Basophils # (auto) 0.06 K/uL (0.00-0.20); Basophils % (auto) 0.6 %; Eosinophils # (auto) 0.23 K/uL (0.00-0.50); Eosinophils % (auto) 2.3 %; Hematocrit (blood only) 31.9 % (37.0-47.0); Hemoglobin 10.2 g/dl (12.0-16.0); Immature Granulocytes # (auto) 0.05 K/uL (0.01-0.20); Immature Granulocytes % (auto) 0.5 %; Lymphocytes # (auto) 3.44 K/uL (1.20-3.40); Mean Corpuscular Hemoglobin 26.6 pg (25.0-34.0); Mean Corpuscular Volume 83.1 fL (80.0-100.0); Mean Platelet Volume 9.9 fL (9.4-12.4); Monocytes # (auto) 0.79 K/uL (0.11-0.59); Neutrophils # (auto) 5.25 K/uL (1.40-6.50); Neutrophils % (auto) 53.6 %; Platelet Count 288 K/uL (130-400); RDW Coefficient of Variation 12.3 % (11.5-14.5); RDW Standard Deviation 37.3 fL (36.4-46.3); Red Blood Count 3.84 M/uL (4.20-5.40); White Blood Count 9.82 K/ul (4.8-10.8)
--- NOTE | 2023-12-09 07:27 | Cardiology Consultation ---
Date of Consultation December 09, 2023 Assessment & Plan (1) Paroxysmal atrial fibrillation: (2) HTN (hypertension): Plan IMPRESSION: 63-year-old female with paroxysmal atrial fibrillation RVR. Diagnosed in August 2023 where she underwent a cardioversion to sinus rhythm. Converted to atrial fibrillation yesterday. Mildly symptomatic with palpitations, chest heaviness, and lightheadedness. PLAN: PAF: Ongoing AFIB with RVR. Rates 100-110s. -Stop metoprolol succinate. -Start Sotalol 80 mg BID, obtain EKG 2 hours after first Sotalol dose. Daily EKGs at 0600 there after. Will anticipate a 3 day Sotalol load. -Continue Diltiazem gtt while patient is in afib, wean as tolerated. -Continue Eliquis 5 mg BID for stroke prevention. -Okay to eat today. -High likelihood for BLANCA, will need sleep med referral at discharge. Consider nocturnal pulse ox study while inpatient. Hypertension: BP controlled. -Continue Losartan 50 mg daily Case discussed with Dr. Sow. Further recommendations pending assessment. I spent a total of 60 minutes on the date of service in preparation, delivery, and documentation of the care provided to the patient excluding any time spent in the performance of separately billed services. TABITHA Pandey Department of Cardiology, [facility] This chart was completed in part utilizing Speech Voice Recognition Software. Grammatical errors, random word insertions, pronoun errors, and incomplete sentences are an occasional consequence of this system due to software limitations, ambient noise, and hardware issues. Any formal questions or concerns about the content, text, or information contained within the body of this dictation should be directly addressed to the provider for clarification. Supervising Physician Co-Signing Physician Notes I have personally performed a history and physical examination on the patient. I have reviewed the advance practitioner's documentation, and I agree with, and take responsibility for the plan of care. 63-year-old female mated with paroxysmal atrial fibrillation and rapid ventricular response. Cardioversion previously performed 08/2023. Will pursue rhythm control strategy. Initiate sotalol 80 mg twice daily. ECG daily approximately 2 hours after a.m. dose of sotalol. Continue telemetry monitoring. Plan external direct-current cardioversion in a.m. 12/11/2023. Continue Eliquis twice daily uninterrupted. I spent a total of 30 minutes on the date of service in preparation, delivery, and documentation of the care provided to this patient, excluding any time spent in the performance of separately billed services. History of Present Illness Reason for Consultation: Atrial fibrillation with RVR Requesting Physician: Ailyn hospitalist Attending Physician: Marc Stacy MD History of Present Illness 63-year-old female who presented to [facility] emergency department yesterday 12/08/2023 due to paroxysmal atrial fibrillation (fairly new diagnosis). Patient admitted August 2023 due to new onset A-fib with RVR. Started on metoprolol succinate 50 mg twice daily and Eliquis 5 mg daily for stroke prophylaxis. Ultimately underwent a JEREMY guided DCCV on 08/24/2023 with successful conversion to sinus rhythm. This admission rates were as high as the 120s. In the ED patient was started on a diltiazem bolus plus drip. Metoprolol succinate 50 mg twice daily was continued. Has been compliant with Eliquis- no missed doses. 12/09/2023: Telemetry: AFIB 100-110s, 8 beat run of VT at 0440 am Labs: stable renal function and electrolytes Upon entrance into the room patient resting in bed. Currently denies chest pain, but did have "heaviness" over night. No shortness of breath. Notes slight palpitations. Formally had lightheadedness/dizziness, but no syncope or near syncope. This has resolved. No orthopnea, PND, or increased lower extremity ed milan. No fever, chills, cough, hematochezia, melena, or hemoptysis. Notes ongoing fatigue, sleeps poorly. Believes she snores. Past medical history: Paroxysmal atrial fibrillation, diagnosed 08/2023. [id number] score of 3. Status post JEREMY guided DCCV 08/24/2023 Hypertension Type 2 diabetes COPD with emphysema Chronic tobacco use Allergies Allergy/AdvReac Type Severity Reaction Status Date / Time No Known Allergies Allergy Unknown Verified 07/13/07 23:14 Home Medications Medication Instructions Recorded Confirmed Type atorvastatin 20 mg tablet 20 mg PO DAILY 08/22/23 12/08/23 History losartan 50 mg tablet 50 mg PO DAILY 08/22/23 12/08/23 History metformin 500 mg tablet,extended 2,000 mg PO QPM 08/22/23 12/08/23 History release 24 hr pantoprazole 40 mg tablet,delayed 40 mg PO DAILY 08/22/23 12/08/23 History release semaglutide 1 mg/dose (4 mg/3 mL) 1 mg subcut .WEEKLY 08/22/23 12/08/23 History subcutaneous pen injector (Ozempic) tolterodine 4 mg capsule,extended 4 mg PO DAILY 08/22/23 12/08/23 History release 24 hr zinc acetate 50 mg (zinc) capsule 50 mg PO DAILY 08/22/23 12/08/23 History apixaban 5 mg tablet (Eliquis) 5 mg PO BID #60 tabs 08/23/23 12/08/23 Rx metoprolol succinate 50 mg 50 mg PO BID #60 tabs 08/25/23 12/08/23 Rx tablet,extended release 24 hr biotin 1 mg tablet 0 mg PO DAILY 12/08/23 12/08/23 History lactobacillus combination no.4 3 0 mmu cells PO DAILY 12/08/23 12/08/23 History billion cell capsule (Probiotic) jyfcrrhiebxz-gkziqeol-xovmuw 1 tab PO DAILY 12/08/23 12/08/23 History tablet (Multivitamin 50 Plus tablet) Patient History Medical History Dizziness Female stress incontinence Tobacco use Surgical History Hx of cystoscopy Hx of bilateral cataract extraction Hx of tubal ligation Hx of hysterectomy Family History Mother Diabetes Social History Smoking Status: Former smoker Tobacco Type: Cigarettes Second Hand Exposure: No; Do You Dip or Chew Tobacco: No; Hx Alcohol Use: No Hx Substance Use: No Preferred Language: Kuwaiti Communication Ability: Effective Strategic Partner Development Manager Required: No Beliefs That Will Affect Care: None Current Living Situation: Spouse Current Living Situation Comment: with Other Information That Helps Us Care for You: No Feels Safe at Home: Yes Safety Concerns: Feels Safe At This Time Assistive Devices: None Review of Systems Review of Systems: All systems reviewed & are unremarkable except as noted in HPI & below Physical Exam Constitutional: WD/WN, vitals as above no acute distress Eyes: PERRL, conjunctivae normal, anicteric sclerae ENMT: external ear and nose normal, oropharynx normal Neck: normal visual inspection and trachea midline Respiratory: normal respiratory effort, lungs clear to auscultation Cardiovascular: Rate/Rhythm: + tachycardic and + irregularly irregular Heart Sounds: normal S1 and normal S2; no murmur Vessels: no JVD Extremities: no edema Gastrointestinal (Abdomen): normal bowel sounds, soft, nontender, no hepatosplenomegaly Musculoskeletal: no cyanosis or clubbing, extremities motor strength 5/5 Neurologic: PERRL, EOMI, accommodation nl, no face palsy, no dysarthria Psychiatric: A+Ox3, euthymic affect Results & Data Vital Signs (Past 12 Hours) Vital Signs Temp Pulse Pulse Resp BP BP Pulse Ox 12/09/23 04:10 36.5 C 74 18 100/63 95 12/08/23 22:52 36.8 C 96 H 18 102/67 98 12/08/23 22:19 105 H 97/62 L 12/08/23 21:57 37 C 125 H 18 110/67 100 12/08/23 21:52 109 H 12/08/23 21:25 110 H 101/53 L 12/08/23 20:55 125 H 110/67 12/08/23 20:52 12/08/23 20:23 129 H 12/08/23 20:09 37 C 115 H 18 128/75 100 12/08/23 19:42 112 H 14 130/79 98 Pulse Ox O2 Del Method O2 Del Method 12/09/23 04:10 Room Air 12/08/23 22:52 Room Air 12/08/23 22:19 12/08/23 21:57 Room Air 12/08/23 21:52 12/08/23 21:25 12/08/23 20:55 12/08/23 20:52 100 Room Air 12/08/23 20:23 12/08/23 20:09 Room Air 12/08/23 19:42 Room Air Laboratory Results Cardiac Enzymes 12/08/23 Range/Units 14:56 AST 16 (13-39) U/L Troponin I High Sens 5.7 (0-14) pg/ml Coagulation 12/08/23 Range/Units 14:56 PT 10.0 (9.0-12.0) Seconds APTT 28 (21-31) Seconds CBC 12/08/23 12/09/23 Range/Units 14:56 05:55 WBC 12.50 H 9.82 (4.8-10.8) K/ul RBC 4.43 3.84 L (4.20-5.40) M/uL Hgb 11.8 L 10.2 L (12.0-16.0) g/dl Hct 37.2 31.9 L (37.0-47.0) % Plt Count 406 H 288 (130-400) K/uL Neut # (Auto) 8.26 H 5.25 (1.40-6.50) K/uL Lymph # (Auto) 2.88 3.44 H (1.20-3.40) K/uL Ransom # (Auto) 1.05 H 0.79 H (0.11-0.59) K/uL Eos # (Auto) 0.17 0.23 (0.00-0.50) K/uL Baso # (Auto) 0.09 0.06 (0.00-0.20) K/uL Comprehensive Metabolic Panel 12/08/23 12/09/23 Range/Units 14:56 05:55 Sodium 138 140 (136-145) mmol/L Potassium 4.5 4.2 (3.5-5.1) mmol/L Chloride 102 106 (98-107) mmol/L Carbon Dioxide 29 27 (21-32) mmol/L BUN 12 13 (6-23) mg/dl Creatinine 0.82 0.70 (0.6-1.2) mg/dl Glucose 146 H 120 H (70-99(Fasting)) mg/dl Calcium 9.1 8.8 (8.6-10.3) mg/dl AST 16 (13-39) U/L ALT 18 (7-52) U/L Alkaline Phosphatase 98 (34-104) U/L Total Protein 7.6 (6.0-8.3) gm/dl Albumin 4.4 (3.4-5.0) gm/dl Intake and Output 12/08/23 12/09/23 12/09/23 22:59 06:59 14:59 Intake Total 1027.333 / 1117.000 89.667 / 1117.000 Balance 1027.333 / 1117.000 89.667 / 1117.000 Intake: IV 1027.333 / 1117.000 89.667 / 1117.000 Sodium Chloride 0.9% 1,000 ml @ 1000 / 1000 999 mls/hr IV .Q1H1M ONE Rx#: [id number] dilTIAZem HCL 125 mg In 27.333 / 117.000 89.667 / 117.000 Dextrose 5% 100 ml @ 5 MG/HR 5 mls/hr IV .Q24H RHODA Rx#: [id number] Other: # Unmeasured Voids 1 1 Weight 78.6 kg 78.6 kg Weight Measurement Method Built in [facility] Built in [facility] Diagnostic Findings Echo 08/23/2023 A-fib with RVR LV normal in size Mild concentric LVH Normal wall motion EF 55 to 60% Left and right atrium normal in size No significant valvular disease
[2023-12-09 07:56] LABS: BUN Creatinine Ratio 18.6 (10-20); Calcium 8.8 mg/dl (8.6-10.3); Creatinine Clr Calc Pharmacy 87.5 ml/min; Est GFR (African American) 108.4 ml/min; Est GFR (Non-African American) 93.5 ml/min; Magnesium 1.9 mg/dl (1.7-2.4); Potassium 4.2 mmol/L (3.5-5.1)
[2023-12-09] MEDS: ATORVASTATIN 20 MG TAB PO SCH (09:46)
[2023-12-09] MEDS: OXYBUTYNIN CHLORIDE XL 5 MG TABCR PO SCH (09:46)
[2023-12-09] MEDS: LOSARTAN POTASSIUM 50 MG TAB PO SCH (09:46)
[2023-12-09] MEDS: PANTOprazole 40 MG TAB PO SCH (09:46)
[2023-12-09] MEDS: SOTALOL HCL 80 MG TAB PO SCH (09:57)
--- NOTE | 2023-12-09 13:55 | Hospitalist Progress Note ---
Date of Service December 09, 2023 Assessment & Plan (1) Atrial fibrillation with rapid ventricular response: Plan: 63-year-old female with history of atrial fibrillation on Eliquis, diabetes type 2, hypertension, other problems noted below presents with chest pain and shortness of breath. Atrial fibrillation rapid ventricular response Last admission was on August 2023, successfully cardioverted, echo EF: 55 to 60%, no significant valvular disease --CXR:No acute process. -- Normal TSH Currently on Cardizem drip Metoprolol succinate discontinued Started on sotalol 80 mg twice a day On Eliquis for anticoagulation Appreciate cardiology input Will obtain nocturnal oximetry study. Will need sleep study as outpatient DM II Usually on Ozempic, metformin Continue insulin while hospitalized Monitor BGs Hypertension Continue losartan 50 mg p.o. daily DVT Px: Eliquis Admission and Anticipated Discharge Date Admission Date: December 08, 2023 Subjective Patient is seen and examined at bedside Palpitations resolved States feeling tired Reports nausea this vomiting which currently resolved Also states having some chest pain this morning which resolved Denies any significant dyspnea but admits to have some dyspnea on exertion No other complaints Review of Systems Review of Systems: All systems reviewed & are unremarkable except as noted in Subjective Physical Exam Physical Exam: Physical Exam: Vitals signs as noted above General Appearance:Moderately built and nourished, no apparent distress Head: normocephalic, Atraumatic Eyes: normal inspection, EOMI Neck: supple, Trachea midline Respiratory/Chest: Normal breath sounds, CTA, No accessory muscle use Cardiovascular: Irregularly irregular, No murmur Abdomen/GI:Soft, Non tender, Bowel sounds present Extremities/Musculoskeletal:normal inspection, no edema Neurologic/Psych:AAOX3, grossly no focal neurological deficits Skin: normal color, warm Results & Data Results & Data Vital Signs (Past 12 Hours) Vital Signs Temp Pulse Resp BP BP Pulse Ox O2 Del Method 12/09/23 11:07 36.6 C 91 H 18 101/61 97 Room Air 12/09/23 07:42 36.6 C 115 H 18 128/75 100 Room Air 12/09/23 04:10 36.5 C 74 18 100/63 95 Room Air Laboratory Results Short CBC 12/08/23 12/09/23 Range/Units 14:56 05:55 WBC 12.50 H 9.82 (4.8-10.8) K/ul Hgb 11.8 L 10.2 L (12.0-16.0) g/dl Hct 37.2 31.9 L (37.0-47.0) % Plt Count 406 H 288 (130-400) K/uL BMP 12/08/23 12/09/23 14:56 05:55 Sodium 138 140 Potassium 4.5 4.2 Chloride 102 106 Carbon Dioxide 29 27 BUN 12 13 Creatinine 0.82 0.70 Glucose 146 H 120 H Calcium 9.1 8.8 Liver Function 12/08/23 Range/Units 14:56 Total Bilirubin 0.3 (0.2-1.0) mg/dl AST 16 (13-39) U/L ALT 18 (7-52) U/L Alkaline Phosphatase 98 (34-104) U/L Albumin 4.4 (3.4-5.0) gm/dl
--- NOTE | 2023-12-10 05:33 | Communication Note ---
Date of Service: December 10, 2023 Made aware by RN of QTc prolongation on 5 AM EKG, 490 ms as per RN. Hold Sotalol for now
[2023-12-10] MEDS: MAGNESIUM SULFATE / D5W 1 GM/100 ML BAG IV ONE (05:47)
--- NOTE | 2023-12-10 05:47 | Electrocardiogram Report ---
Test Reason : Blood Pressure : / mmHG Vent. Rate : 149 BPM Atrial Rate : 000 BPM P-R Int : 000 ms QRS Dur : 082 ms QT Int : 304 ms P-R-T Axes : 000 -52 072 degrees QTc Int : 478 ms Atrial fibrillation with rapid ventricular response Left axis deviation Nonspecific ST abnormality Abnormal ECG When compared with ECG of 24-AUG-2023 13:20, Atrial fibrillation has replaced Sinus rhythm Vent. rate has increased BY 57 BPM Confirmed by Neno Tate ([id number]) on 12/10/2023 5:46:56 AM Referred By: Confirmed By:Neno Tate
--- NOTE | 2023-12-10 05:47 | Electrocardiogram Report ---
Test Reason : Blood Pressure : / mmHG Vent. Rate : 088 BPM Atrial Rate : 277 BPM P-R Int : 000 ms QRS Dur : 086 ms QT Int : 382 ms P-R-T Axes : 000 -10 004 degrees QTc Int : 462 ms Atrial fibrillation Abnormal ECG When compared with ECG of 08-DEC-2023 15:13, Nonspecific T wave abnormality now evident in Inferior leads Confirmed by Neno Tate ([id number]) on 12/10/2023 5:47:43 AM Referred By: REFERRED SELF Confirmed By:Neno Tate
--- NOTE | 2023-12-10 05:47 | Electrocardiogram Report ---
Test Reason : Blood Pressure : / mmHG Vent. Rate : 123 BPM Atrial Rate : 000 BPM P-R Int : 000 ms QRS Dur : 084 ms QT Int : 318 ms P-R-T Axes : 000 -36 048 degrees QTc Int : 455 ms Atrial fibrillation with rapid ventricular response Left axis deviation Abnormal ECG When compared with ECG of 08-DEC-2023 14:51, No significant change was found Confirmed by Neno Tate ([id number]) on 12/10/2023 5:47:19 AM Referred By: REFERRED SELF Confirmed By:Neno Tate
--- NOTE | 2023-12-10 05:48 | Electrocardiogram Report ---
Test Reason : Blood Pressure : / mmHG Vent. Rate : 086 BPM Atrial Rate : 187 BPM P-R Int : 000 ms QRS Dur : 090 ms QT Int : 394 ms P-R-T Axes : 000 -25 005 degrees QTc Int : 471 ms Atrial fibrillation Nonspecific T wave abnormality Abnormal ECG When compared with ECG of 09-DEC-2023 04:22, No significant change was found Confirmed by Neno Tate ([id number]) on 12/10/2023 5:48:09 AM Referred By: REFERRED SELF Confirmed By:Neno Tate
[2023-12-10 06:43] LABS: Hematocrit (blood only) 33.3 % (37.0-47.0); Hemoglobin 10.7 g/dl (12.0-16.0); Mean Corpuscular Hemoglobin 26.7 pg (25.0-34.0); Mean Corpuscular Hgb Conc 32.1 g/dL (32.0-36.0); Mean Platelet Volume 9.7 fL (9.4-12.4); Platelet Count 328 K/uL (130-400); RDW Coefficient of Variation 12.4 % (11.5-14.5); RDW Standard Deviation 37.6 fL (36.4-46.3); Red Blood Count 4.01 M/uL (4.20-5.40); White Blood Count 11.07 K/ul (4.8-10.8)
[2023-12-10 07:04] LABS: BUN Creatinine Ratio 20.3 (10-20); Calcium 8.8 mg/dl (8.6-10.3); Creatinine Clr Calc Pharmacy 76.1 ml/min; Est GFR (African American) 93.6 ml/min; Est GFR (Non-African American) 80.8 ml/min; Potassium 4.1 mmol/L (3.5-5.1)
--- NOTE | 2023-12-10 14:34 | Cardiology Progress Note ---
Date of Service December 10, 2023 Assessment & Plan (1) Paroxysmal atrial fibrillation: (2) HTN (hypertension): Plan 63-year-old female admitted with recurrent symptomatic (tiredness, reduced exercise tolerance, chest heaviness, palpitations) atrial fibrillation with a rapid ventricular response. Atrial fibrillation first observed in August 2023, undergoing successful cardioversion at that time. Underlying history of emphysema, tobacco use, hypertension, dyslipidemia, type II diabetes mellitus. No recent interruption in Eliquis anticoagulation. Sotalol initiated in AM of 12/09/2023 at 09:57 with the second dose administered on 12/09/2023 at 20:34 PM Sotalol HELD in AM of due to QTc prolongation - 493 ms. Electrolytes OK. Recommendations: Repeat EKG now, considering resumption of sotalol versus alternative antiarrhythmic along with metoprolol. Continue Diltiazem gtt for now Continue Eliquis anticoagulation, 5 mg twice a day, without interruption. Continue telemetry. NPO after midnight Outpatient ischemic evaluation Outpatient evaluation for possible underlying sleep apnea. I spent a total of 35 minutes on the date of service in preparation, delivery, and documentation of the care provided to this patient excluding any time spent in the performance of separately billed services. This visit was a split-shared visit with the substantive portion of the medical decision making performed by the supervising project intern/billing provider. Admission and Anticipated Discharge Date Admission Date: December 08, 2023 Supervising Physician Co-Signing Physician Notes Attending attestation: Case reviewed with the advanced practitioner. I have personally performed a history and physical examination on the patient. I have reviewed the advanced practitioner's documentation on the date of service referenced in note, and I agree with, and take responsibility for the plan of care. EKG performed this morning at 5:12 AM revealed atrial fibrillation 84 bpm, QT interval by the computer calculation had increased to 4 to 93 ms, however this is difficult to interpret given the irregular RR interval, and on the majority of the available beats, the QT interval appears grossly normal. A.m. dose of sotalol was held. Repeat EKG performed at 1506 reveals ongoing rate controlled atrial fibrillation at 86 bpm, QT interval back to previous baseline of 157 ms. Patient states that she has not missed any doses of Eliquis within the last month. Will proceed with sotalol 80 mg x 1 this afternoon. Continue diltiazem infusion, currently at 10 mg /hr at 4:52 pm. Continue Eliquis. Proceed with direct-current cardioversion a.m. of 12/11/2023. Will obtain EKG post cardioversion and reassess candidacy and dose of sotalol at that time. I spent a total of 20 minutes coordinating, documenting, and providing care for this patient excluding time spent in the performance of separately billed services or time spent by another provider. Nima Mcbride, Subjective Patient seen and examined. Chart, medications, and telemetry reviewed. Mukesh at bedside. Feeling better today. Still with some heaviness. Telemetry: Atrial fibrillation in the 90's, on diltiazem infusion at 5 mg/hr Review of Systems Review of Systems: Complete Review of Systems is as stated above, negative, or noncontributory. Physical Exam Physical Exam: General: A&Ox3. NAD. HENT: Normocephalic. Atraumatic. Eyes: PER. Conjunctiva pink, sclera clear. Neck: No JVD. No HJR. Heart: Irregularly irregular at 100 bpm. No murmur. Lungs: Clear to auscultation. Abdomen: +BS. Soft. Nontender. No organomegaly. Extremities: No clubbing, cyanosis, or edema. Limited neurological examination is without focal deficits. Pulses: Posterior tibial=2/4. Results & Data Vital Signs (Past 12 Hours) Vital Signs Temp Pulse Pulse Resp BP Pulse Ox O2 Del Method 12/10/23 10:54 36.7 C 85 18 103/67 98 Room Air 12/10/23 08:00 86 12/10/23 07:43 36.6 C 83 18 100/66 98 Room Air 12/10/23 03:15 36.5 C 87 18 99/67 L 95 Room Air Laboratory Results CBC 12/10/23 Range/Units 06:07 WBC 11.07 H (4.8-10.8) K/ul RBC 4.01 L (4.20-5.40) M/uL Hgb 10.7 L (12.0-16.0) g/dl Hct 33.3 L (37.0-47.0) % Plt Count 328 (130-400) K/uL Comprehensive Metabolic Panel 12/10/23 Range/Units 06:07 Sodium 139 (136-145) mmol/L Potassium 4.1 (3.5-5.1) mmol/L Chloride 106 (98-107) mmol/L Carbon Dioxide 25 (21-32) mmol/L BUN 16 (6-23) mg/dl Creatinine 0.79 (0.6-1.2) mg/dl Glucose 151 H (70-99(Fasting)) mg/dl Calcium 8.8 (8.6-10.3) mg/dl Intake and Output 12/09/23 12/10/23 12/10/23 22:59 06:59 14:59 Intake Total 1264.667 / 1550.333 285.666 / 1550.333 100 / 100 Balance 1264.667 / 1550.333 285.666 / 1550.333 100 / 100 Intake: IV 114.667 / 250.333 135.666 / 250.333 100 / 100 Magnesium Sulfate / D5w 1 gm In 100 / 100 100 ml @ 50 mls/hr IV ONE ONE Rx#:[id number] dilTIAZem HCL 125 mg In 114.667 / 250.333 135.666 / 250.333 Dextrose 5% 100 ml @ 5 MG/HR 5 mls/hr IV .Q24H [facility] Rx#: [id number] Oral 1150 / 1300 150 / 1300 Other: # Unmeasured Voids 1 Weight 75.7 kg Weight Measurement Method Standing Scale
[2023-12-10] MEDS ORDERED: POLYETHYLENE (MIRALAX) 17 GM PACK PO PRN (16:27)
[2023-12-10] MEDS: SOTALOL HCL 80 MG TAB PO ONE (16:33)
[2023-12-10] MEDS: DOCUSATE SODIUM 100 MG CAP PO ONE (17:36)
--- NOTE | 2023-12-10 17:58 | Hospitalist Progress Note ---
Date of Service December 10, 2023 Assessment & Plan (1) Atrial fibrillation with rapid ventricular response: Plan: 63-year-old female with history of atrial fibrillation on Eliquis, diabetes type 2, hypertension, other problems noted below presents with chest pain and shortness of breath. Atrial fibrillation rapid ventricular response Last admission was on August 2023, successfully cardioverted, echo EF: 55 to 60%, no significant valvular disease --CXR:No acute process. -- Normal TSH Currently on Cardizem drip Metoprolol succinate discontinued Started on sotalol 80 mg twice a day On Eliquis for anticoagulation Appreciate cardiology input Will obtain nocturnal oximetry study. Will need sleep study as outpatient NPO after midnight for cardioversion tomorrow Monitor QTc while on sotalol DM II Usually on Ozempic, metformin Continue insulin while hospitalized Monitor BGs Hypertension Continue losartan 50 mg p.o. daily DVT Px: Eliquis Admission and Anticipated Discharge Date Admission Date: December 08, 2023 Subjective Patient is seen and examined at bedside Reports intermittent palpitations associated with nausea and dyspnea No other complaints Review of Systems Review of Systems: All systems reviewed & are unremarkable except as noted in Subjective Physical Exam Physical Exam: Physical Exam: Vitals signs as noted above General Appearance:Moderately built and nourished, no apparent distress Head: normocephalic, Atraumatic Eyes: normal inspection, EOMI Neck: supple, Trachea midline Respiratory/Chest: Normal breath sounds, CTA, No accessory muscle use Cardiovascular: Irregularly irregular, No murmur Abdomen/GI:Soft, Non tender, Bowel sounds present Extremities/Musculoskeletal:normal inspection, no edema Neurologic/Psych:AAOX3, grossly no focal neurological deficits Skin: normal color, warm Results & Data Results & Data Vital Signs (Past 12 Hours) Vital Signs Temp Pulse Pulse Resp BP Pulse Ox O2 Del Method 12/10/23 14:57 36.4 C L 88 18 111/62 98 Room Air 12/10/23 10:54 36.7 C 85 18 103/67 98 Room Air 12/10/23 08:00 86 12/10/23 07:43 36.6 C 83 18 100/66 98 Room Air Laboratory Results Short CBC 12/10/23 Range/Units 06:07 WBC 11.07 H (4.8-10.8) K/ul Hgb 10.7 L (12.0-16.0) g/dl Hct 33.3 L (37.0-47.0) % Plt Count 328 (130-400) K/uL BMP 12/10/23 06:07 Sodium 139 Potassium 4.1 Chloride 106 Carbon Dioxide 25 BUN 16 Creatinine 0.79 Glucose 151 H Calcium 8.8
[2023-12-10] MEDS: DOCUSATE SODIUM 100 MG CAP PO SCH (20:04)
[2023-12-11 06:30] LABS: BUN Creatinine Ratio 28.8 (10-20); Calcium 8.7 mg/dl (8.6-10.3); Creatinine Clr Calc Pharmacy 82.3 ml/min; Est GFR (Non-African American) 88.9 ml/min; Magnesium 2.1 mg/dl (1.7-2.4); Potassium 4.2 mmol/L (3.5-5.1)
--- NOTE | 2023-12-11 07:07 | History & Physical Bridge Note ---
Date of Service December 11, 2023 History & Physical Bridge Note I have examined the patient, reviewed the History & Physical and in the interval since the performance of the History & Physical I have noted the following changes of clinical significance: no changes noted
--- NOTE | 2023-12-11 07:33 | Anesthesiology Consultation ---
Date of Service December 11, 2023 Assessment & Plan Chart Review Chart Review: Acceptable Risk for Surgery, Patient NOT seen in Pre Admission Testing and entry level accountant initiated Consults Requested none ASA ASA3 Proposed Anesthesia Anesthesia Type: MAC Risk / Benefits Reviewed With: PT / POA / Parent / Guardian, Accepts Plan and Informed Consent Obtained History Surgery Operation Date: 12/11/23 07:15 Proposed Procedures p Cardioversion Skip Pit Worker w/Anesthesia - Nima Mcbride, Height/Weight Height: 5 ft 5 in Weight: 75.6 kg Allergies Allergy/AdvReac Type Severity Reaction Status Date / Time No Known Allergies Allergy Unknown Verified 07/13/07 23:14 Medications Home Medications Medication Instructions Recorded Confirmed Last Taken atorvastatin 20 mg tablet 20 mg PO DAILY 08/22/23 12/08/23 Unknown losartan 50 mg tablet 50 mg PO DAILY 08/22/23 12/08/23 Unknown metformin 500 mg tablet,extended 2,000 mg PO QPM 08/22/23 12/08/23 Unknown release 24 hr pantoprazole 40 mg tablet,delayed 40 mg PO DAILY 08/22/23 12/08/23 Unknown release semaglutide 1 mg/dose (4 mg/3 mL) 1 mg subcut .WEEKLY 08/22/23 12/08/23 Unknown subcutaneous pen injector (Ozempic) tolterodine 4 mg capsule,extended 4 mg PO DAILY 08/22/23 12/08/23 Unknown release 24 hr zinc acetate 50 mg (zinc) capsule 50 mg PO DAILY 08/22/23 12/08/23 Unknown apixaban 5 mg tablet (Eliquis) 5 mg PO BID #60 tabs 08/23/23 12/08/23 12/08/23 09:00 metoprolol succinate 50 mg 50 mg PO BID #60 tabs 08/25/23 12/08/23 Unknown tablet,extended release 24 hr biotin 1 mg tablet 0 mg PO DAILY 12/08/23 12/08/23 Unknown lactobacillus combination no.4 3 0 mmu cells PO DAILY 12/08/23 12/08/23 Unknown billion cell capsule (Probiotic) [id number] 1 tab PO DAILY 12/08/23 12/08/23 Unknown tablet (Multivitamin 50 Plus tablet) Active Medications Generic Name Dose Route Start Last Admin Trade Name Freq PRN Reason Stop Dose Admin Apixaban 5 mg 12/08/23 21:00 12/10/23 20:04 Apixaban 5 Mg Tablet PO 01/07/24 20:59 5 mg BID RHODA Administration Atorvastatin Calcium 20 mg 12/09/23 09:00 12/10/23 08:07 Atorvastatin 20 Mg Tab PO 01/08/24 08:59 20 mg DAILY RHODA Administration Docusate Sodium 100 mg 12/10/23 21:00 12/10/23 20:04 Docusate Sodium 100 Mg Cap PO 01/09/24 20:59 100 mg BID RHODA Administration Diltiazem HCl 125 mg/ Dextrose 125 mls @ 5 mls/hr 12/08/23 15:15 12/11/23 05:43 IV 01/07/24 15:14 10 mg/hr .Q24H RHODA 10 mls/hr Administration Protocol 5 MG/HR Insulin Aspart 0 units 12/08/23 21:00 12/10/23 20:43 Insulin Aspart Per Unit Charge SC 01/07/24 20:59 Not Given ACHS RHODA Losartan Potassium 50 mg 12/09/23 09:00 12/10/23 08:08 Losartan Potassium 50 Mg Tab PO 01/08/24 08:59 50 mg DAILY RHODA Administration Oxybutynin Chloride 10 mg 12/09/23 09:00 12/10/23 08:08 Oxybutynin Chloride Xl 5 Mg Tabcr PO 01/08/24 08:59 10 mg DAILY RHODA Administration Protocol Pantoprazole Sodium 40 mg 12/09/23 09:00 12/10/23 08:07 Pantoprazole 40 Mg Tab PO 01/08/24 08:59 40 mg DAILY RHODA Administration Sotalol HCl 80 mg 12/09/23 09:00 12/10/23 20:04 Sotalol Hcl 80 Mg Tab PO 01/08/24 08:59 80 mg BID RHODA Administration NPO Date Last Intake of Fluids: 12/10/23 Time Last Intake of Fluids: 23:30 Date Last Intake of Solids: 12/10/23 Time Last Intake of Solids: 20:30 Past Medical History Medical History Dizziness Female stress incontinence Tobacco use Exercise / Class Metabolic Activity II 4-5 Yardwork/Stairs/Walk up hill Past Family History Family History Mother Diabetes Past Surgical History Surgical History Hx of cystoscopy Hx of bilateral cataract extraction Hx of tubal ligation Hx of hysterectomy Past Anesthesia History No Hx of Anesthesia Complications and No Family Hx of Anesthesia Complications History of PONV No Hx of PONV and No Hx of Motion Sickness Social History Smoking Status: Former smoker Do You Dip or Chew Tobacco: No Hx Alcohol Use: No Hx Substance Use: No substance use type: does not use Physical Exam Vital Signs Last Vital Signs Temp 36.7 C 12/11/23 03:26 Pulse 85 12/11/23 03:26 Resp 18 12/11/23 03:26 BP 99/64 L 12/11/23 03:26 Pulse Ox 97 12/11/23 03:26 O2 Del Method Room Air 12/11/23 03:26 Constitutional no acute distress ENMT Mouth: + chipped teeth; no loose teeth Thyromental Distance: > or= 3.5 Finger Breadths Mallampati Class: III Neck normal visual inspection and trachea midline; neck extension not limited Respiratory normal respiratory effort; no respiratory distress Auscultation: lungs clear to auscultation bilaterally; no crackles, no rhonchi and no wheezes Cardiovascular Rate/Rhythm: regular rate; + abnormal rhythm Heart Sounds: no gallop, no murmur and no cardiac rub Musculoskeletal Head/Neck/Chest: full ROM of neck Neurologic moves all extremities and awake Psychiatric Orientation: alert and oriented x 3 Testing Laboratory Results 12/10/23 06:07 12/11/23 05:44 PT 10.0 Seconds (9.0-12.0) 12/08/23 14:56 INR 0.9 (0.9-1.1) 12/08/23 14:56 APTT 28 Seconds (21-31) 12/08/23 14:56 12/10/23 20:13 POC Glucose 123 H
--- NOTE | 2023-12-11 07:45 | Cardioversion ---
Date of Service December 11, 2023 Electrical Cardioversion Rpt Electrical Cardioversion Report Procedure Preprocedure diagnosis: Symptomatic atrial fibrillation with rapid ventricular sponsor Post procedure diagnosis: Successful conversion to sinus rhythm Direct-current cardioversion procedure: After informed consent was obtained a timeout was performed the patient was sedated by the anesthesia service receiving a total of 70 mg of IV propofol. Cardiac rhythm, pulse oximetry, inhaled CO2 levels monitored during the procedure. Patient received a single dose of 200 J of synchronized biphasic energy with successful conversion to sinus rhythm. Country Printer Apprentice Nima Mcbride DO Leather Leveler None Estimated Blood Loss 0 Findings Consistent with Post-Op Diagnosis Anesthesia Type MAC Complications No complications were immediately apparent. Tresa Mcbride DO
--- NOTE | 2023-12-11 08:06 | Cardiology Progress Note ---
Date of Service December 11, 2023 Assessment & Plan (1) Paroxysmal atrial fibrillation: (2) HTN (hypertension): Plan 63-year-old female admitted with recurrent symptomatic (tiredness, reduced exercise tolerance, chest heaviness, palpitations) atrial fibrillation with a rapid ventricular response. Atrial fibrillation first observed in August 2023, undergoing successful cardioversion at that time. Underlying history of emphysema, tobacco use, hypertension, dyslipidemia, type II diabetes mellitus. No recent interruption in Eliquis anticoagulation. Patient received a single dose of sotalol on 12/10/2023 with a.m. dose having been held due to QT prolongation. Repeat EKG performed this morning 12/11/2023 at 5:28 AM with patient having received IV diltiazem 5 mg/h revealed QTc of 508 ms, however measurement is technically difficult due to the irregular RR interval. Post cardioversion this morning, sinus rhythm at 70 bpm with QT interval of 481 ms noted, which is improved, felt to be accurate, but still longer than baseline. Plan: Discontinue sotalol. Resume metoprolol succinate 50 mg twice daily. Add diltiazem CD1 120 mg daily. Discontinue IV diltiazem. Continue Eliquis for stroke prophylaxis. Will reassess progress this afternoon with regards to disposition possible discharge. Admission and Anticipated Discharge Date Admission Date: December 08, 2023 Subjective Patient seen in cardiology follow up. Underwent cardioversion with successful conversion to sinus rhythm. Review of Systems Review of Systems: All systems reviewed & are unremarkable except as noted in HPI & below Physical Exam Constitutional: WD/WN, vitals as above no acute distress Eyes: PERRL, conjunctivae normal, anicteric sclerae Neck: normal visual inspection and trachea midline Respiratory: normal respiratory effort, lungs clear to auscultation Cardiovascular: Rate/Rhythm: + tachycardic and + irregularly irregular Heart Sounds: normal S1 and normal S2; no murmur Vessels: no JVD Extremities: no edema Gastrointestinal (Abdomen): normal bowel sounds, soft, nontender, no hepatosplenomegaly Musculoskeletal: no cyanosis or clubbing, extremities motor strength 5/5 Neurologic: PERRL, EOMI, accommodation nl, no face palsy, no dysarthria Psychiatric: A+Ox3, euthymic affect Results & Data Vital Signs (Past 12 Hours) Vital Signs Temp Pulse Pulse Resp BP Pulse Ox O2 Del Method 12/11/23 07:30 36.8 C 84 18 104/62 98 Room Air 12/11/23 03:26 36.7 C 85 18 99/64 L 97 Room Air 12/10/23 23:37 92 H 12/10/23 22:35 36.8 C 79 18 109/71 97 Room Air Laboratory Results Comprehensive Metabolic Panel 12/11/23 Range/Units 05:44 Sodium 139 (136-145) mmol/L Potassium 4.2 (3.5-5.1) mmol/L Chloride 106 (98-107) mmol/L Carbon Dioxide 24 (21-32) mmol/L BUN 21 (6-23) mg/dl Creatinine 0.73 (0.6-1.2) mg/dl Glucose 138 H (70-99(Fasting)) mg/dl Calcium 8.7 (8.6-10.3) mg/dl Intake and Output 12/10/23 12/11/23 12/11/23 22:59 06:59 14:59 Intake Total 374.667 / 1883.000 108.333 / 1883.000 Balance 374.667 / 1882.000 108.333 / 1882.000 Intake: IV 124.667 / 333.000 108.333 / 333.000 dilTIAZem HCL 125 mg In 124.667 / 233.000 108.333 / 233.000 Dextrose 5% 100 ml @ 5 MG/HR 5 mls/hr IV .Q24H [facility] Rx#: [id number] Oral 250 / 1550 Other: Other Intake Source npo # Unmeasured Voids 1 Weight 75.6 kg 75.6 kg Patient Weight 12/12/23 06:59 Weight 75.6 kg
[2023-12-11] MEDS: dilTIAZem HCL 120 MG CAPCR PO SCH (10:54)
[2023-12-11] MEDS: METOPROLOL SUCC 50MG EXT REL TAB PO SCH (10:54)
--- NOTE | 2023-12-11 11:50 | Anesthesiology Progress Note ---
Date of Service December 11, 2023 Anesthesia Post Procedure Vital Signs Vital Signs: Temp Pulse Pulse Resp BP BP Pulse Ox 12/11/23 11:15 36.8 C 82 18 112/70 98 12/11/23 08:20 36.6 C 74 18 111/69 98 12/11/23 08:00 36.8 C 69 16 105/55 L 98 12/11/23 07:45 36.8 C 70 14 95/51 L 95 12/11/23 07:30 36.8 C 84 18 104/62 98 12/11/23 03:26 36.7 C 85 18 99/64 L 97 12/10/23 23:37 92 H 12/10/23 22:35 36.8 C 79 18 109/71 97 12/10/23 20:00 12/10/23 19:47 36.6 C 79 18 117/72 98 12/10/23 18:33 94 H 12/10/23 14:57 36.4 C L 88 18 111/62 98 Pulse Ox O2 Del Method O2 Del Method O2 Flow Rate 12/11/23 11:15 Room Air 12/11/23 08:20 Room Air 12/11/23 08:00 Room Air 12/11/23 07:45 Oxymask 5 12/11/23 07:30 Room Air 12/11/23 03:26 Room Air 12/10/23 23:37 12/10/23 22:35 Room Air 12/10/23 20:00 100 Room Air 12/10/23 19:47 Room Air 12/10/23 18:33 12/10/23 14:57 Room Air Transfer of Care Handoff Completed per policy Notes Mental Status: alert / awake / arousable and participated in evaluation Patient Amnestic to Procedure: Yes Nausea / Vomiting: adequately controlled Pain: adequately controlled Airway Patency, RR, SpO2: stable & adequate BP & HR: stable & adequate Hydration State: stable & adequate Anesthetic Complications: no major complications apparent
--- NOTE | 2023-12-11 13:50 | Hospitalist Progress Note ---
Date of Service December 11, 2023 Assessment & Plan (1) Atrial fibrillation with rapid ventricular response: Plan: 63-year-old female with history of atrial fibrillation on Eliquis, diabetes type 2, hypertension, other problems noted below presents with chest pain and shortness of breath. Atrial fibrillation rapid ventricular response Last admission was on August 2023, successfully cardioverted, echo EF: 55 to 60%, no significant valvular disease --CXR:No acute process. -- Normal TSH --S/P Successful conversion to sinus rhythm on 12/11/2023 -Cardizem drip, sotalol discontinued Started on p.o. Cardizem 120 mg daily Also on metoprolol succinate 50 mg twice daily On Eliquis for anticoagulation Appreciate cardiology input Nocturnal oximetry study: Did not qualify for nighttime oxygen May benefit from sleep study as outpatient Needs follow-up with cardiology on discharge DM II Usually on Ozempic, metformin Continue insulin while hospitalized Monitor BGs Hypertension continue losartan Also on Cardizem, metoprolol DVT Px: Eliquis Disposition Home as able Admission and Anticipated Discharge Date Admission Date: December 08, 2023 Subjective Patient is seen and examined at bedside Successful cardioversion earlier today In sinus during my encounter Palpitations, dyspnea much improved No new complaints Discussed with cardiology today Review of Systems Review of Systems: All systems reviewed & are unremarkable except as noted in Subjective Physical Exam Physical Exam: Physical Exam: Vitals signs as noted above General Appearance:Moderately built and nourished, no apparent distress Head: normocephalic, Atraumatic Eyes: normal inspection, EOMI Neck: supple, Trachea midline Respiratory/Chest: Normal breath sounds, CTA, No accessory muscle use Cardiovascular: S1-S2, No murmur Abdomen/GI:Soft, Non tender, Bowel sounds present Extremities/Musculoskeletal:normal inspection, no edema Neurologic/Psych:AAOX3, grossly no focal neurological deficits Skin: normal color, warm Results & Data Results & Data Vital Signs (Past 12 Hours) Vital Signs Temp Pulse Pulse Resp BP BP Pulse Ox 12/11/23 11:15 36.8 C 82 18 112/70 98 12/11/23 08:36 80 12/11/23 08:20 36.6 C 74 18 111/69 98 12/11/23 08:00 36.8 C 69 16 105/55 L 98 12/11/23 07:45 36.8 C 70 14 95/51 L 95 12/11/23 07:30 36.8 C 84 18 104/62 98 12/11/23 07:00 85 12/11/23 03:26 36.7 C 85 18 99/64 L 97 O2 Del Method O2 Flow Rate 12/11/23 11:15 Room Air 12/11/23 08:36 12/11/23 08:20 Room Air 12/11/23 08:00 Room Air 12/11/23 07:45 Oxymask 5 12/11/23 07:30 Room Air 12/11/23 07:00 12/11/23 03:26 Room Air Laboratory Results BMP 12/11/23 05:44 Sodium 139 Potassium 4.2 Chloride 106 Carbon Dioxide 24 BUN 21 Creatinine 0.73 Glucose 138 H Calcium 8.7
--- NOTE | 2023-12-11 14:31 | Discharge Summary ---
Date of Service December 11, 2023 Admission HPI Per Admitting Provider 63-year-old female with history of atrial fibrillation on Eliquis, diabetes type 2, hypertension, other problems noted below Presenting with chest pain and shortness of breath. She was last admitted to [facility] last August 2023 for atrial fibrillation RVR, and was successfully cardioverted. Earlier today, patient started to have palpitations, associated with shortness of breath, dizziness, and nausea today. She was aware that she was having an episode of atrial fibrillation and RVR. At the ER, patient was received with heart rate of 160s, but blood pressure was stable. EKG showed atrial fibrillation RVR Troponin negative Chest x-ray negative She was placed on Cardizem drip, and subsequently the heart rate improved to 110s. Admission Exam Per Admitting Provider General- oriented x 3, not in distress, speaks in sentences with no effort or accessory muscle use Eyes- anicteric Neck- no JVD Lungs- clear breath sounds bilaterally, no rales/wheezes Heart- mildly tachycardic, irregularly irregular rhythm; no murmurs Abdomen- normal bowel sounds, nondistended, soft, nontender Extremities- no pretibial edema, no calf tenderness Neuro- alert, oriented x 3; no gross focal neurologic deficits Skin- warm & dry Principal Diagnosis Atrial fibrillation rapid ventricular response S/P Successful cardioversion Discharge Data Allergies Allergy/AdvReac Type Severity Reaction Status Date / Time No Known Allergies Allergy Unknown Verified 07/13/07 23:14 Consultations 12/08/23 16:07 ED Decision to Admit Stat 12/08/23 20:52 Consult Cardiology Routine 12/10/23 15:44 Consult Anesthesiology Routine Procedures Performed Operation Date: 12/11/23 07:15 Actual Procedures p Cardioversion - Nima Mcbride DO Ordered Studies Laboratory Results WBC 11.07 K/ul (4.8-10.8) H 12/10/23 06:07 RBC 4.01 M/uL (4.20-5.40) L 12/10/23 06:07 Hgb 10.7 g/dl (12.0-16.0) L 12/10/23 06:07 Hct 33.3 % (37.0-47.0) L 12/10/23 06:07 MCV 83.0 fL (80.0-100.0) 12/10/23 06:07 MCH 26.7 pg (25.0-34.0) 12/10/23 06:07 MCHC 32.1 g/dL (32.0-36.0) 12/10/23 06:07 RDW Std Deviation 37.6 fL (36.4-46.3) 12/10/23 06:07 RDW Coeff of Valente 12.4 % (11.5-14.5) 12/10/23 06:07 Plt Count 328 K/uL (130-400) 12/10/23 06:07 MPV 9.7 fL (9.4-12.4) 12/10/23 06:07 Immature Gran % (Auto) 0.5 % 12/09/23 05:55 Neut % (Auto) 53.6 % 12/09/23 05:55 Lymph % (Auto) 35.0 % 12/09/23 05:55 Tripp % (Auto) 8.0 % 12/09/23 05:55 Eos % (Auto) 2.3 % 12/09/23 05:55 Baso % (Auto) 0.6 % 12/09/23 05:55 Neut # (Auto) 5.25 K/uL (1.40-6.50) 12/09/23 05:55 Lymph # (Auto) 3.44 K/uL (1.20-3.40) H 12/09/23 05:55 Tripp # (Auto) 0.79 K/uL (0.11-0.59) H 12/09/23 05:55 Eos # (Auto) 0.23 K/uL (0.00-0.50) 12/09/23 05:55 Baso # (Auto) 0.06 K/uL (0.00-0.20) 12/09/23 05:55 Immature Gran # (Auto) 0.05 K/uL (0.01-0.20) 12/09/23 05:55 PT 10.0 Seconds (9.0-12.0) 12/08/23 14:56 INR 0.9 (0.9-1.1) 12/08/23 14:56 APTT 28 Seconds (21-31) 12/08/23 14:56 PTT Ratio 1.0 12/08/23 14:56 Sodium 139 mmol/L (136-145) 12/11/23 05:44 Potassium 4.2 mmol/L (3.5-5.1) 12/11/23 05:44 Chloride 106 mmol/L (98-107) 12/11/23 05:44 Carbon Dioxide 24 mmol/L (21-32) 12/11/23 05:44 Anion Gap 9 (3-11) 12/11/23 05:44 BUN 21 mg/dl (6-23) 12/11/23 05:44 Creatinine 0.73 mg/dl (0.6-1.2) 12/11/23 05:44 Est Cr Clr Drug Dosing 82.3 ml/min 12/11/23 05:44 Est GFR ( Amer) 103.0 ml/min 12/11/23 05:44 Est GFR (Non-Af Amer) 88.9 ml/min 12/11/23 05:44 BUN/Creatinine Ratio 28.8 (10-20) H 12/11/23 05:44 Glucose 138 mg/dl (70-99(Fasting)) H 12/11/23 05:44 POC Glucose 145 mg/dl (70-99) H 12/11/23 11:51 Calcium 8.7 mg/dl (8.6-10.3) 12/11/23 05:44 Magnesium 2.1 mg/dl (1.7-2.4) 12/11/23 05:44 Total Bilirubin 0.3 mg/dl (0.2-1.0) 12/08/23 14:56 AST 16 U/L (13-39) 12/08/23 14:56 ALT 18 U/L (7-52) 12/08/23 14:56 Alkaline Phosphatase 98 U/L (34-104) 12/08/23 14:56 Troponin I High Sens 5.7 pg/ml (0-14) 12/08/23 14:56 Total Protein 7.6 gm/dl (6.0-8.3) 12/08/23 14:56 Albumin 4.4 gm/dl (3.4-5.0) 12/08/23 14:56 Globulin 3.2 gm/dl (2.5-4.0) 12/08/23 14:56 Albumin/Globulin Ratio 1.4 (0.9-2) 12/08/23 14:56 TSH 0.781 uIu/ml (0.300-4.500) 12/08/23 14:56 Impressions Chest X-Ray 12/08/23 14:47 XR chest 1V portable HISTORY: afib, SOB COMPARISON: Chest 08/22/2023. FINDINGS: The lungs are clear. Cardiac silhouette is normal in size. No pleural effusions. No pneumothorax. IMPRESSION: No acute process. ACT 112: Negative or not required by law. Electronically signed by: Urbano Bledsoe M.D. 12/08/2023 4:02 PM Hospital Course (1) Atrial fibrillation with rapid ventricular response: 63-year-old female with history of atrial fibrillation on Eliquis, diabetes type 2, hypertension, other problems noted below presents with chest pain and shortness of breath. Atrial fibrillation rapid ventricular response Last admission was on August 2023, successfully cardioverted, echo EF: 55 to 60%, no significant valvular disease --CXR:No acute process. -- Normal TSH --S/P Successful conversion to sinus rhythm on 12/11/2023 -Cardizem drip, sotalol discontinued Started on p.o. Cardizem 120 mg daily Also on metoprolol succinate 50 mg twice daily On Eliquis for anticoagulation Appreciate cardiology input Nocturnal oximetry study: Did not qualify for nighttime oxygen May benefit from sleep study as outpatient Needs follow-up with cardiology on discharge DM II Usually on Ozempic, metformin Continue insulin while hospitalized Monitor BGs Hypertension continue losartan Also on Cardizem, metoprolol DVT Px: Eliquis Disposition Home as able Total Time Total Time Spent Total Time Spent (In Minutes): 55 minutes Discharge Plan Discharge Items Patient Disposition: Home - Self-Care Reason For Visit: A FIB RVR Discharge Diagnosis: Atrial fibrillation rapid ventricular response S/P Successful cardioversion Activity: Per Instructions section Exercise/Sports: Wait until after follow-up appointment Non-emergency contact: Primary Care Provider and Kick Boxer Call non-emergency contact if: you have any medication questions, your symptoms worsen, your pain is concerning for you and you have a fever Follow-up/Referrals: Rolf Vera MD [Primary Care Provider] - (Date & Time 12/20/2023 1:40 PM Provider Rolf Vera MD Department Family [facility] ) Diet: Carb Consistent or DM2 and Heart Healthy Addtl Attending Provider Instructions: Follow-up with your primary care physician on 12/20/2023 1:40 PM Follow-up with your manager supply Dr. Mcbride as advised --- Obtain sleep study as recommended rule out obstructive sleep apnea. --Start taking diltiazem 120 mg daily as recommended by your manager supply Seek immediate medical attention if your symptoms reoccur or worsen Please take all medications as instructed on discharge list below. Please call if you have any questions or problems. You can reach a [facility] hospitalist on duty at [facility] 24 hours a day by calling [phone] Pending Studies at Discharge: No Stand-Alone Forms: My [facility], Smoking Cessation Medications and DC Order Prescriptions: New diltiazem HCl [Cardizem CD] 120 mg Capsule,Extended Release 24hr 120 mg PO QAM Qty: 30 1RF Continued losartan 50 mg tablet 50 mg PO DAILY atorvastatin 20 mg tablet 20 mg PO DAILY tolterodine 4 mg capsule,extended release 24hr 4 mg PO DAILY pantoprazole 40 mg tablet,delayed release (DR/EC) 40 mg PO DAILY metformin 500 mg tablet extended release 24 hr 2,000 mg PO QPM Ozempic 1 mg/dose (4 mg/3 mL) pen injector 1 mg SUBCUT .WEEKLY Rx Instructions: Mon zinc acetate 50 mg (zinc) Capsule 50 mg PO DAILY Eliquis 5 mg tablet 5 mg PO BID Qty: 60 0RF Multivitamin 50 Plus Tablet 1 tab PO DAILY biotin 1 mg Tablet 0 mg PO DAILY Probiotic 3 billion cell Capsule 0 mmu cells PO DAILY Rx Instructions: administer with a meal metoprolol succinate 50 mg Tablet Extended Release 24 Hr 50 mg PO BID Qty: 60 1RF Discharge Orders: Discharge Order (Routine); Ordered 12/11/23 Ordered By: Nathan Gallego Admission Data Admit Date/Time: 12/08/23 16:14 Attending Provider: Nathan Gallego Admit Provider: Marc Stacy Primary Care Provider: Rolf Vera Other Providers: Marc Stacy; Shukri Sow; Jose Howell
--- NOTE | 2023-12-12 05:42 | Electrocardiogram Report ---
Test Reason : Blood Pressure : / mmHG Vent. Rate : 084 BPM Atrial Rate : 104 BPM P-R Int : 000 ms QRS Dur : 088 ms QT Int : 418 ms P-R-T Axes : 000 -28 000 degrees QTc Int : 493 ms Atrial fibrillation Prolonged QT Nonspecific T wave abnormality Abnormal ECG When compared with ECG of 09-DEC-2023 11:13, No significant change was found Confirmed by Neno Tate ([id number]) on 12/12/2023 5:42:44 AM Referred By: REFERRED SELF Confirmed By:Neno Tate
--- NOTE | 2023-12-12 06:17 | Electrocardiogram Report ---
Test Reason : Blood Pressure : / mmHG Vent. Rate : 086 BPM Atrial Rate : 441 BPM P-R Int : 000 ms QRS Dur : 092 ms QT Int : 382 ms P-R-T Axes : 000 -26 035 degrees QTc Int : 457 ms Atrial fibrillation Nonspecific T wave abnormality Abnormal ECG When compared with ECG of 10-DEC-2023 05:12, No significant change was found Confirmed by Neno Tate ([id number]) on 12/12/2023 6:17:33 AM Referred By: REFERRED SELF Confirmed By:Neno Tate
== END 2023-12-11 15:15 | disposition home or self-care (01) | DRG 310 ==
LOC: ED 14:41 → SUATTDRO 16:14 → 4W 16:14